=== PATIENT | male | born 1945 | race Hispanic/Latino ===

== ENCOUNTER 2018-09-17 06:32 | Inpatient (IN) | payer OTHER ==
[2018-09-17] MEDS ORDERED: KETAMINE HCL 500 MG/5 ML VIAL ONE (07:10)
[2018-09-17 07:23] LABS: Absolute Lymphocytes (CBC) 4.7 K/uL (0.7-4.9); Basophils % 0.7 % (0-1.3); Eosinophils % 1.4 % (0-4.4); Hematocrit 43.2 % (39.6-49.0); Lymphocytes % 52.4 % (15.3-44.8); MPV 8.4 fL (7.6-11.3); Monocytes % 5.6 % (3.3-12.3); RBC Red Blood Cell Count 4.77 M/uL (4.33-5.43)
[2018-09-17 07:25] LABS: Protime INR 0.98
[2018-09-17] MEDS ORDERED: NOREPINEPHRINE 4mg/D5W 250mL 4 MG/250 ML BAG IV ONE (07:47)
[2018-09-17] MEDS ORDERED: FENTANYL CITR 100 MCG/2 ML ONE (07:47)
[2018-09-17 07:57] LABS: ALT/SGPT 68 U/L (12-78); AST/SGOT 77 U/L (15-37); Albumin 3.9 g/dL (3.4-5.0); BUN Blood Urea Nitrogen 13 mg/dL (7-18); Bicarbonate 25 mmol/L (21-32); Bilirubin Direct 0.2 mg/dL (0-0.2); Bilirubin Total 0.8 mg/dL (0.2-1.0); Glucose Level 217 mg/dL (74-106); Magnesium 2.4 mg/dL (1.8-2.4); NT PRO-BNP 5047 pg/mL (<125); Potassium 5.4 mmol/L (3.5-5.1); Protein, Total 7.1 g/dL (6.4-8.2); Sodium Level 131 mmol/L (136-145); Troponin (Emerg Dept Use Only) 0.07 ng/mL (0.0-0.045)
[2018-09-17 07:59] LABS: Alkaline Phosphatase ND U/L (45-117)
[2018-09-17 08:11] LABS: Arterial Blood Carboxyhemoglob 2.1 % (0-1.5); Blood Gas Oxyhemoglobin 93.2 % (94-97); Blood O2 Saturation 95.8 % (92-98.5)
[2018-09-17] MEDS ORDERED: INSULIN -REGULAR HUMAN 50 UNIT/0.5 ML ML ONE (08:21)
[2018-09-17] MEDS ORDERED: HEPARIN 5000 UNIT/ML 1 ML VIAL ONE (08:21)
[2018-09-17] MEDS ORDERED: HEPARIN/D5W 25,000 UNIT/500 ML BAG IV ONE (08:22)
[2018-09-17] MEDS ORDERED: D50W 25 GM/50 ML SYRINGE IV ONE (08:22)
--- NOTE | 2018-09-17 08:26 | RAD REPORT ---
EXAM DESCRIPTION: RAD - Chest Single View - 09/17/2018 6:54 am CLINICAL HISTORY: DYSPNEA Chest pain. COMPARISON: No comparisons FINDINGS: Portable technique limits examination quality. ET tube tip is above the jd. Enteric tube descends into the upper abdomen. The lungs are emphysem atous without focal infiltrate seen. No displaced fractures.Cardiac size is normal.
--- NOTE | 2018-09-17 08:29 | ER ---
Nurse's Notes [facility] Name: Wade Murphy Age: 73 yrs Sex: Male : 1945 Arrival Date: 09/17/2018 Time: 06:37 Bed 3 Private MD: Diagnosis: Non-ST elevation (NSTEMI) myocardial infarction;Acute systolic (congestive) heart failure;Chronic kidney disease (CKD);Hyperkalemia;Acute respiratory failure with hypoxia Presentation: 09/17 06:47 Presenting complaint: EMS states: Toned out for pt SOB. Pt was diaphoretic, tl2 hypertensive, and agitated on scene. Not tolerating neb treatments or CPap. [employer] Supervisor proceeded with intubation. 8.0 tube, 24 \T\ teeth, 16 Fr NG tube placed, 18 g R AC. Transition of care: patient was not received from another setting of care. Onset of symptoms was September 17, 2018 at 02:00. Risk Assessment: Do you want to hurt yourself or someone else? Patient reports no desire to harm self or others. Initial Sepsis Screen: Does the patient meet any 2 criteria? No. Patient's initial sepsis screen is negative. Does the patient have a suspected source of infection? No. Patient's initial sepsis screen is negative. Care prior to arrival: Oral intubation, Medication(s) given: 20 etomidate, 100 succs, 150 fentanyl, 125 solu medrol. IV initiated. 18 GA, in the right antecubital area, Glucose check: 194 Med neb given. 06:47 Method Of Arrival: EMS: [facility] tl2 06:47 Acuity: MARYJANE 1 tl2 Triage Assessment: 06:54 General: Appears distressed, Behavior is unresponsive. Pain: Unable to use pain scale. tl2 Patient is unresponsive. Neuro:. Respiratory: Airway via oral intubation Onset: The symptoms/episode began/occurred this morning, the patient has severe shortness of breath. 06:54 Respiratory: Reports intubated upon arrival to ED;. hj Historical: - Allergies: 07:07 No Known Allergies; tl2 - Home Meds: 06:54 clopidogrel 75 mg oral tab 1 tab once daily [Active]; carvedilol 3.125 mg oral tab 1 tl2 tab 2 times per day [Active]; furosemide 20 mg Oral tab 1 tab once daily [Active]; amlodipine 10 mg tab 1 tab once daily [Active]; aspirin 81 mg Oral chew 1 tab once daily [Active]; nitroglycerin 0.4 mg SL subl 1 tab [Active]; - PMHx: 07:07 Hypertension; Myocardial infarction; TIA; tl2 - PSHx: 07:07 None; tl2 - Immunization history:: Adult Immunizations up to date. - Ebola Screening: : No symptoms or risks identified at this time. - Social history:: Smoking status: Patient uses tobacco products, smokes one pack cigarettes per day. Patient uses alcohol, 12 pack/day. Screenin:58 Abuse screen: Denies threats or abuse. Nutritional screening: No deficits noted. tl2 Tuberculosis screening: No symptoms or risk factors identified. Fall Risk IV access (20 points). Assessment: 06:45 General: Appears uncomfortable, well nourished, Behavior is unresponsive. Pain: Unable jd3 to use pain scale. Patient is intubated. Neuro: Level of Consciousness is pt is intubated.. Oriented to none. Cardiovascular: Capillary refill < 3 seconds Rhythm is sinus rhythm. Respiratory: Airway via oral intubation Respiratory effort is shallow, Breath sounds are coarse Breath sounds with crackles. GI: No signs and/or symptoms were reported involving the gastrointestinal system. : No signs and/or symptoms were reported regarding the genitourinary system. EENT: EENT: No signs and/or symptoms were reported regarding the EENT system. Derm: Skin is intact, Skin is clammy, diaphoretic, Skin is normal, Skin temperature is warm. 06:58 Cardiovascular: Rhythm is sinus rhythm. tl2 07:00 Reassessment: RECD REPORT FROM ADEEL PASTOR. 73YO HM P/W SOB AND AMS SINCE 0200. INTUBATED bp IN ROUTE BY EMS. PT CURRENTLY ON VENT, WITH NGT AND PINEDA IN PLACE. 07:00 General: Appears uncomfortable, Behavior is calm, unresponsive. Pain: Unable to use hj pain scale. Patient is intubated. Neuro: Level of Consciousness is unresponsive, Oriented to none. Cardiovascular: Capillary refill < 3 seconds Patient's skin is warm and dry. Respiratory: Airway via oral intubation Respiratory effort is even, Respiratory pattern is intubated Breath sounds are coarse Breath sounds with crackles. GI: No signs and/or symptoms were reported involving the gastrointestinal system. GI: NGT in place, to suction. Site clean. Bowel sounds present X 4 quads. : : Pineda in place Urine is clear. Derm: Skin is intact, Skin is clammy, diaphoretic, Skin is normal, Skin temperature is cool. 07:30 Reassessment: pt is restless, RT at bedside, ET tube adjusted; assisted provider on hj central line femoral placement;. 07:45 Reassessment: carried out medication orders for heparin and levophed;. hj 08:00 Reassessment: pt started to become awake, requested for propofol order; initiated;. hj 09:00 Reassessment: pt family in room with hospitalist for POC:. hj 09:32 Reassessment: awaiting for ICU placement;. hj 10:00 Reassessment: bleeding noted at central line site; pressure applied for 15 mins and hj dressing changed;. 10:33 Reassessment: family in room; awaiting ICU placement;. hj 11:12 Reassessment: pt to go to ICU bed 2; awaiting call back from [facility] for report;. hj 11:41 Reassessment: still awaiting for call back from [facility] for report;. hj Vital Signs: 06:54 BP 108 / 55; Pulse 70; Resp 17; Pulse Ox 100% on ETT vent; Weight 81.65 kg; Height 5 tl2 ft. 8 in. (172.72 cm); 07:00 BP 126 / 76; Pulse 77; Resp 19; Temp 96.8(C); Pulse Ox 99% ; tl2 07:26 Temp 96.8; hj 08:10 BP 90 / 44; Pulse 51; Resp 16; Pulse Ox 98% on ETT vent; hj 08:15 BP 118 / 46; Pulse 55; Resp 16; Pulse Ox 97% on ETT vent; hj 08:30 BP 150 / 79; Pulse 67; Resp 16; Pulse Ox 98% on ETT vent; hj 08:38 BP 148 / 46; Pulse 71; Resp 14; Pulse Ox 100% on ETT vent; hj 08:45 BP 92 / 45; Pulse 56; Resp 16; Pulse Ox 99% on ETT vent; hj 09:02 BP 105 / 49; Pulse 53; Resp 16; Temp 96.3(C); Pulse Ox 99% on ETT vent; hj 09:13 BP 122 / 51; Pulse 64; Resp 16; Pulse Ox 96% on ETT vent; hj 09:16 BP 116 / 50; Pulse 52; Resp 16; Pulse Ox 100% on ETT vent; hj 09:31 BP 124 / 53; Pulse 54; Resp 16; Pulse Ox 100% on R/A; hj 09:45 BP 132 / 60; Pulse 60; Resp 17; Temp 96.1(C); Pulse Ox 100% on ETT vent; hj 09:53 BP 122 / 65; Pulse 60; Resp 16; Pulse Ox 100% on ETT vent; hj 10:30 BP 122 / 55; Pulse 58; Resp 16; Pulse Ox 100% on ETT vent; hj 11:09 BP 132 / 55; Pulse 67; Resp 16; Temp 97.7(C); Pulse Ox 100% on ETT vent; hj 11:22 BP 122 / 57; Pulse 70; Resp 16; Temp 97.9(C); Pulse Ox 100% on ETT vent; hj 11:40 BP 138 / 73; Pulse 81; Resp 18; Temp 98.3(C); Pulse Ox 100% on R/A; hj 11:47 BP 104 / 46; Pulse 80; Resp 16; Temp 98.4(C); Pulse Ox 100% on ETT vent; hj 12:23 BP 145 / 54; Pulse 75; Resp 16; Pulse Ox 100% on ETT vent; hj 06:54 Body Mass Index 27.37 (81.65 kg, 172.72 cm) tl2 09:02 levophed mcg/min hj 09:13 levophed at 12 mcg/min hj 09:16 levophed \T\ 12 mcg/min hj 09:31 levophed at 12 mcg/min hj 09:45 levophed \T\ 10 mcg/min hj 09:53 levphed at 8 mcg/min hj 10:30 levophed at 8 mcg/min hj 11:09 levophed at 6 mcg/min hj 11:22 levophed \T\ 6 mcg/min hj 11:40 levophed at 4 mcg/min hj 11:47 levophed at \T\ 6 mcg/min hj 12:23 levophed \T\ 4 mcg/min hj Sarah Coma Score: 08:16 Eye Response: none(1). Verbal Response: none(1). Motor Response: none(1). Modifying jr8 Factors: Intubated. Total: 3. ED Course: 06:37 Patient arrived in ED. fc 06:42 Garcia Massey PA is PHCP. jr8 06:42 Mayco Kahn MD is Attending Physician. jr8 06:50 X-ray completed. Portable x-ray completed in exam room. Patient tolerated procedure jb2 well. 06:50 Initial lab(s) drawn, by ED staff, sent to lab. First set of blood cultures drawn EKG tl2 done, by ED staff, reviewed by Garcia WILKERSON. 06:51 Triage completed. tl2 06:52 XRAY Chest (1 view) In Process Unspecified. EDMS 06:54 Arm band placed on right wrist. tl2 06:56 Maintain EMS IV. Dressing intact. Good blood return noted. Site clean \T\ dry. Gauge \T\ tl 2 site: 18 g R AC. Inserted saline lock: 20 gauge in left forearm, using aseptic technique. Blood collected. placed by DAWIT Barron. 06:58 Patient has correct armband on for positive identification. Placed in gown. Bed in low tl2 position. Call light in reach. Side rails up X2. 07:02 Pineda cath inserted, using sterile technique, 16 Fr., by ED staff, balloon inflated, to tl2 gravity drainage, urine specimen collected. 07:19 Dieudonne Silvestre, DAWIT is Primary Nurse. bp 07:45 Assisted provider with central line placement. Set up central line tray. Triple lumen hj line placed in right femoral. Line placed by Garcia WILKERSON Placement verified by blood return, Dressed with Tegaderm, Patient tolerated well. Time-out/Briefing performed prior to start of procedure? Was handwashing/sanitizing done immediately prior to procedure? Was patient positioned to in a way to prevent air embolism? Was procedure site sterilized? Yes, with chlorhexidine. Was the site allowed to dry? Was local anesthetic and/or sedation utilized? Yes. During the procedure, did the Practitioner(s) maintain a sterile field? Were unused ports clamped during insertion? Yes. Was a 2nd qualified MD obtained after 3 unsuccessful insertion attempts? No. Was blood aspirated from each lumen? Yes. After the procedure, did the Practitioner(s) clean the site and apply a sterile dressing? Yes. 08:14 Repeat EKG was done. sm3 08:27 Galdino Patel MD is Hospitalizing Provider. jr8 08:45 Inserted. hj 08:51 Primary Nurse role handed off by Dieudonne Silvestre, DAWIT hj 08:51 Arun Paz, DAWIT is Primary Nurse. hj 13:12 Patient admitted, IV remains in place. intact. hj Restraints: 07:00 Non-Violent Restraint: Order obtained. Initiated on September 17, 2018 at 07:00 Unable to bp provide Restraint education. PT ALTERED AND NON-VERBAL. Actions/Behavior observed: Confused/disoriented, has difficulty remembering/follow instructions, has impaired decision making, has decreased level of consciousness, unable to follow instructions, Less restrictive alternatives attempted: decrease environmental stimuli, placed near Nurse station, reoriented to location, medications evaluated, medicated for pain/anxiety, Alternative interventions: Ineffective. Clinical justification for use: airway protection, patient safety, Mental status: confused, Cognition: poor judgement, poor safety awareness, poor attention/concentration, unable to follow commands, Circulation: Within defined parameters (based on Cardiovascular assessment) Skin integrity: Within defined parameters (based on Integumentary assessment) Signs of injury related to restraint: No injuries noted. Range of Motion (ROM): performed. Elimination/Hygiene: with urinary catheter, Restraint status: Soft wrist restraint (Right) Started. Soft wrist restraint (Left) Started. Criteria to discontinue Restraint not met. Restraint continued. Administered Medications: 06:45 Drug: Versed 4 mg Route: IVP; Site: right antecubital; tl2 07:56 Follow up: Response: No adverse reaction; Anxiety decreased hj 06:50 Drug: Lasix 80 mg Route: IVP; Site: left forearm; tl2 07:57 Follow up: Response: No adverse reaction hj 07:04 Drug: Albuterol 2.5 mg Route: Inhalation; tl2 07:10 Drug: Ketamine 2 mg/kg Route: IVP; Site: right antecubital; bp 07:55 Follow up: Response: No adverse reaction hj 07:38 Drug: fentaNYL (PF) 50 mcg Route: IVP; Site: left wrist; ss 07:55 Follow up: Response: No adverse reaction hj 07:40 Drug: Levophed (4 mg/250 mL D5W 4 mcg/min Route: IV; Rate: calculated rate; Site: right hj femoral; 08:42 Follow up: IV Status: Infusion continued upon admission hj 08:04 Drug: Heparin (MO-Bolus with thrombolytic) - HEParin 60 units/kg {Co-Signature: bp carlos (Dieudonne Silvestre RN).} Route: IVP; Site: right femoral; 08:42 Follow up: Response: No adverse reaction hj 08:05 Drug: Heparin (MO Drip) 12 units/kg/hr - (HEParin 40065 units, D5W 500 ml) {Co-Signature: bp (Dieudonne Silvestre RN).} Route: IV; Rate: calculated rate; Site: right femoral; 08:43 Follow up: IV Status: Infusion continued upon admission hj 08:05 Drug: Insulin Regular Human 10 units {Co-Signature: (Dieudonne Silvestre RN).} Route: IVP; Site: right femoral; 08:43 Follow up: Response: No adverse reaction hj 08:05 Drug: D50W 25 ml Route: IVP; Site: right forearm; hj 08:43 Follow up: Response: No adverse reaction hj 08:31 Drug: Propofol 5 mcg/kg/min Route: IV; Rate: calculated rate; Site: right femoral; hj 08:43 Follow up: IV Status: Infusion continued upon admission Point of Care Testing: Blood Glucose: 07:20 Blood Glucose: 231 mg/dL; tl2 Ranges: Ventilator: 08:16 Fi02: 50%; Rate: 16min; T.V.: 550ml; Peep: 75cm; Mode: CMV; jr8 Outcome: 08:28 Decision to Hospitalize by Provider. jr8 13:11 Admitted to ICU accompanied by nurse, accompanied by tech, family with patient, via stretcher, room 2, with oxygen, on monitor, with chart, Report called to DAWIT Garcia 13:11 Condition: stable 13:11 Instructed on the need for admit, Demonstrated understanding of instructions. 13:12 Patient left the ED. Signatures: Dispatcher [employer] EDLui Evans Felicia, RN RN fc Smirch, Shelby, RN RN ss Roszak, Josh, PA PA jr8 Arun Paz RN RN Kusum Cortez RN RN tl2 Anderson Dobbs RN RN jd3 Dieudonne Silvestre RN RN bp Kayla East 3 Dieudonne Silvestre RN bp Corrections: (The following items were deleted from the chart) 07:07 06:54 Allergies: Unable to obtain; tl2 tl2 07:07 06:54 PMHx: Unable to obtain; tl2 tl2 07:08 06:54 Social history: Smoking status: unknown tl2 tl2 07:21 07:00 BP 126 / 76; Pulse 77bpm; Resp 19bpm; Pulse Ox 99%; bp tl2 09:32 09:14 Reassessment: [facility] 09:52 07:00 EENT: No signs and/or symptoms were reported regarding the EENT system. [facility] 09:52 09:52 Reassessment: [facility] 10:35 09:53 BP 122 / 65; Pulse 60bpm; Resp 16bpm; Pulse Ox 100% ET / Ventilator; [facility] 10:35 10:30 BP 122 / 55; Pulse 58bpm; Resp 16bpm; Pulse Ox 100% ET / Ventilator; [facility] 11:12 11:09 BP 132 / 55; Pulse 67bpm; Resp 16bpm; Pulse Ox 100% ET / Ventilator; Temp 97.7F hj Catheter;
--- NOTE | 2018-09-17 08:29 | EDPHYS ---
Physician Documentation [facility] Name: Wade Murphy Age: 73 yrs Sex: Male : 1945 Arrival Date: 09/17/2018 Time: 06:37 Bed 3 Private MD: ED Physician Mayco Kahn HPI: 09/17 07:51 This 73 yrs old Male presents to ER via EMS with complaints of Respiratory jr8 Distress. 07:51 The patient has shortness of breath at rest. Onset: The symptoms/episode began/occurred jr8 acutely, this morning. Duration: The symptoms are continuous. The patient's shortness of breath has no apparent modifying factors. Associated signs and symptoms: The patient has no apparent associated signs or symptoms. Severity of symptoms: At their worst the symptoms were severe in the emergency department the symptoms have improved. It is unknown whether or not the patient has had similar symptoms in the past. It is unknown whether or not the patient has recently seen a physician. EMS called out to patient in acute respiratory distress. Upon arrival to house noted that he was retracting and in tripod position. Breathing treatments and IV medication administered on scene with no relief. Stated that he was becoming lethargic and had increased work of breathing. Electively intubated in field. Upon arrival to ED patient improved but still with diffuse wheezing and rales bilaterally. Hemodynamically stable at that time. Historical: - Allergies: 07:07 No Known Allergies; tl2 - Home Meds: 06:54 clopidogrel 75 mg oral tab 1 tab once daily [Active]; carvedilol 3.125 mg oral tab 1 tl2 tab 2 times per day [Active]; furosemide 20 mg Oral tab 1 tab once daily [Active]; amlodipine 10 mg tab 1 tab once daily [Active]; aspirin 81 mg Oral chew 1 tab once daily [Active]; nitroglycerin 0.4 mg SL subl 1 tab [Active]; - PMHx: 07:07 Hypertension; Myocardial infarction; TIA; tl2 - PSHx: 07:07 None; tl2 - Immunization history:: Adult Immunizations up to date. - Ebola Screening: : No symptoms or risks identified at this time. - Social history:: Smoking status: Patient uses tobacco products, smokes one pack cigarettes per day. Patient uses alcohol, 12 pack/day. ROS: 07:51 Unable to obtain ROS due to obtunded state, patient is on ventilator. jr8 Exam: 08:16 Eyes: Pupils equal round and reactive to light. Lids and lashes normal. Conjunctiva jr8 and sclera are non-icteric and not injected. Cornea within normal limits. Periorbital areas with no swelling, redness, or edema. ENT: Nares patent. No nasal discharge, no septal abnormalities Oropharynx with no redness, swelling, or masses, exudates, or evidence of obstruction, uvula midline. Mucous membranes moist. Neck: Trachea midline, no thyromegaly or masses palpated, and no cervical lymphadenopathy. Supple, full range of motion Cardiovascular: Regular rate and rhythm with a normal S1 and S2. No gallops, murmurs, or rubs. No pulse deficits. JVD present 08:16 Abdomen/GI: Soft with normal bowel sounds. No distension Skin: Cool and moist skin with normal turgor. Normal color with no rashes, no lesions, and no evidence of cellulitis. MS/ Extremity: Pulses equal, no cyanosis. Neurovascular intact. Full, normal range of motion. 08:16 Respiratory: Breath sounds: rales, that are moderate, are scattered, wheezing: expiratory that is moderate, is heard diffusely, Respiratory rate: 16 vent. 08:16 Neuro: Purposeful movement in all extremities before sedation. No seizure activity or abnormal movements noted. Rest of exam could not fully be assessed due to patient status. Vital Signs: 06:54 BP 108 / 55; Pulse 70; Resp 17; Pulse Ox 100% on ETT vent; Weight 81.65 kg; Height 5 tl2 ft. 8 in. (172.72 cm); 07:00 BP 126 / 76; Pulse 77; Resp 19; Temp 96.8(C); Pulse Ox 99% ; tl2 07:26 Temp 96.8; hj 08:10 BP 90 / 44; Pulse 51; Resp 16; Pulse Ox 98% on ETT vent; hj 08:15 BP 118 / 46; Pulse 55; Resp 16; Pulse Ox 97% on ETT vent; hj 08:30 BP 150 / 79; Pulse 67; Resp 16; Pulse Ox 98% on ETT vent; hj 08:38 BP 148 / 46; Pulse 71; Resp 14; Pulse Ox 100% on ETT vent; hj 08:45 BP 92 / 45; Pulse 56; Resp 16; Pulse Ox 99% on ETT vent; hj 09:02 BP 105 / 49; Pulse 53; Resp 16; Temp 96.3(C); Pulse Ox 99% on ETT vent; hj 09:13 BP 122 / 51; Pulse 64; Resp 16; Pulse Ox 96% on ETT vent; hj 09:16 BP 116 / 50; Pulse 52; Resp 16; Pulse Ox 100% on ETT vent; hj 09:31 BP 124 / 53; Pulse 54; Resp 16; Pulse Ox 100% on R/A; hj 09:45 BP 132 / 60; Pulse 60; Resp 17; Temp 96.1(C); Pulse Ox 100% on ETT vent; hj 09:53 BP 122 / 65; Pulse 60; Resp 16; Pulse Ox 100% on ETT vent; hj 10:30 BP 122 / 55; Pulse 58; Resp 16; Pulse Ox 100% on ETT vent; hj 11:09 BP 132 / 55; Pulse 67; Resp 16; Temp 97.7(C); Pulse Ox 100% on ETT vent; hj 11:22 BP 122 / 57; Pulse 70; Resp 16; Temp 97.9(C); Pulse Ox 100% on ETT vent; hj 11:40 BP 138 / 73; Pulse 81; Resp 18; Temp 98.3(C); Pulse Ox 100% on R/A; hj 11:47 BP 104 / 46; Pulse 80; Resp 16; Temp 98.4(C); Pulse Ox 100% on ETT vent; hj 12:23 BP 145 / 54; Pulse 75; Resp 16; Pulse Ox 100% on ETT vent; hj 06:54 Body Mass Index 27.37 (81.65 kg, 172.72 cm) tl2 09:02 levophed mcg/min hj 09:13 levophed at 12 mcg/min hj 09:16 levophed \T\ 12 mcg/min hj 09:31 levophed at 12 mcg/min hj 09:45 levophed \T\ 10 mcg/min hj 09:53 levphed at 8 mcg/min hj 10:30 levophed at 8 mcg/min hj 11:09 levophed at 6 mcg/min hj 11:22 levophed \T\ 6 mcg/min hj 11:40 levophed at 4 mcg/min hj 11:47 levophed at \T\ 6 mcg/min hj 12:23 levophed \T\ 4 mcg/min hj Sarah Coma Score: 08:16 Eye Response: none(1). Verbal Response: none(1). Motor Response: none(1). Modifying jr8 Factors: Intubated. Total: 3. Ventilator: 08:16 Fi02: 50%; Rate: 16min; T.V.: 550ml; Peep: 75cm; Mode: CMV; jr8 Procedures: 07:47 Central Line: the site was prepped with Betadine, in sterile fashion, a triple lumen jr8 catheter was inserted, in the right femoral vein, in 1 attempts. placement was verified, by blood return, the site was dressed with 4X4s, Tegaderm, foam tape, using sterile technique, the patient tolerated the procedure, well. MDM: 06:42 Patient medically screened. jr8 08:09 Physician consultation: Jackson Munoz MD was called at 08:03, was contacted at 08:03, jr regarding consult, patient's condition, and will see patient in unit. 08:16 Data reviewed: vital signs, nurses notes, lab test result(s), EKG, radiologic studies, jr8 plain films, ultrasound. Data interpreted: Pulse oximetry: on ventilator is 99 %. Interpretation: acceptable. Counseling: I had a detailed discussion with the patient and/or guardian regarding: the historical points, exam findings, and any diagnostic results supporting the discharge/admit diagnosis, lab results, radiology results, the need for further work-up and treatment in the hospital. 08:25 Physician consultation: Galdino Patel MD was called at 08:25, was contacted at 08:25, jr8 regarding admission, to the ICU, consult, patient's condition, and will see patient in ED. ED course: Talked to family about condition and need for ICU admission. Family good with this. Also asked about DNR status which family states he does not have a DNR and wants everything done to try and revive patient . 09/17 06:43 Order name: Basic Metabolic Panel [facility] 09/17 06:43 Order name: CBC with Diff 8 09/17 06:43 Order name: LFT's [facility] 09/17 06:43 Order name: Magnesium; Complete Time: 08:08 jr8 09/17 06:43 Order name: NT PRO-BNP; Complete Time: 08:08 jr8 09/17 06:43 Order name: PT-INR; Complete Time: 07:26 jr8 09/17 06:43 Order name: Troponin (emerg Dept Use Only); Complete Time: 08:08 jr8 09/17 06:43 Order name: Ckmb; Complete Time: 08:08 jr8 09/17 06:43 Order name: Lactate; Complete Time: 07:58 jr8 09/17 06:43 Order name: Blood Culture Adult (2) jr8 09/17 06:43 Order name: Procalcitonin; Complete Time: 08:08 jr8 09/17 06:43 Order name: Basic Metabolic Panel; Complete Time: 08:08 EDMS 09/17 06:44 Order name: CBC with Automated Diff; Complete Time: 07:26 EDMS 09/17 06:44 Order name: Liver (Hepatic) Function; Complete Time: 08:08 EDMS 09/17 06:43 Order name: XRAY Chest (1 view); Complete Time: 08:28 jr8 09/17 06:43 Order name: EKG; Complete Time: 06:44 jr8 09/17 07:54 Order name: ABG; Complete Time: 10:11 09/17 08:11 Order name: Echo with Doppler EDMS 09/17 11:18 Order name: Lactate Sepsis 2 HR Follow-up; Complete Time: 11:19 EDMS 09/17 06:43 Order name: Cardiac monitoring; Complete Time: 07:02 jr8 09/17 06:43 Order name: EKG - Nurse/Tech; Complete Time: 07:02 jr8 09/17 06:43 Order name: IV Saline Lock; Complete Time: 07:02 jr8 09/17 06:43 Order name: Labs collected and sent; Complete Time: 07:02 jr8 09/17 06:43 Order name: O2 Per Protocol; Complete Time: 07:02 jr8 09/17 06:43 Order name: O2 Sat Monitoring; Complete Time: 07:02 jr8 09/17 07:21 Order name: Restraint:Non-Violent; Complete Time: 07:21 bp 09/17 07:47 Order name: EKG; Complete Time: 07:47 jr8 Administered Medications: 06:45 Drug: Versed 4 mg Route: IVP; Site: right antecubital; tl2 07:56 Follow up: Response: No adverse reaction; Anxiety decreased hj 06:50 Drug: Lasix 80 mg Route: IVP; Site: left forearm; tl2 07:57 Follow up: Response: No adverse reaction hj 07:04 Drug: Albuterol 2.5 mg Route: Inhalation; tl2 07:10 Drug: Ketamine 2 mg/kg Route: IVP; Site: right antecubital; bp 07:55 Follow up: Response: No adverse reaction hj 07:38 Drug: fentaNYL (PF) 50 mcg Route: IVP; Site: left wrist; ss 07:55 Follow up: Response: No adverse reaction hj 07:40 Drug: Levophed (4 mg/250 mL D5W 4 mcg/min Route: IV; Rate: calculated rate; Site: right hj femoral; 08:42 Follow up: IV Status: Infusion continued upon admission hj 08:04 Drug: Heparin (KS-Bolus with thrombolytic) - HEParin 60 units/kg {Co-Signature: bp (Dieudonne Silvestre RN).} Route: IVP; Site: right femoral; 08:42 Follow up: Response: No adverse reaction hj 08:05 Drug: Heparin (KS Drip) 12 units/kg/hr - (HEParin 70261 units, D5W 500 ml) {Co-Signature: bp (Dieudonne Silvestre RN).} Route: IV; Rate: calculated rate; Site: right femoral; 08:43 Follow up: IV Status: Infusion continued upon admission hj 08:05 Drug: Insulin Regular Human 10 units {Co-Signature: (Dieudonne Silvestre RN).} Route: IVP; Site: right femoral; 08:43 Follow up: Response: No adverse reaction hj 08:05 Drug: D50W 25 ml Route: IVP; Site: right forearm; hj 08:43 Follow up: Response: No adverse reaction hj 08:31 Drug: Propofol 5 mcg/kg/min Route: IV; Rate: calculated rate; Site: right femoral; hj 08:43 Follow up: IV Status: Infusion continued upon admission Point of Care Testing: Blood Glucose: 07:20 Blood Glucose: 231 mg/dL; tl2 Ranges: Critical Glucose Levels:Adult <50 mg/dl or >400 mg/dl <40 mg/dl or >180 mg/dl Disposition: :31 Critical Care:. jr8 16:44 Co-signature as Attending Physician, Mayco Kahn MD I agree with the assessment and jj plan of care. Disposition: 09/17/18 08:28 Hospitalization ordered by Galdino Patel for Inpatient Admission. Preliminary diagnosis are Non-ST elevation (NSTEMI) myocardial infarction, Acute systolic (congestive) heart failure, Chronic kidney disease (CKD), Hyperkalemia, Acute respiratory failure with hypoxia. - Bed requested for Intensive Care Unit. - Status is Inpatient Admission. hj - Condition is Fair. - Problem is new. - Symptoms have improved. UTI on Admission? No Critical care time excluding procedures: : Critical care time: Bedside Care: 20 minutes, Consultation: 10 minutes, Family jr8 Intervention: 10 minutes. Total time: 40 minutes Signatures: Dispatcher [employer] EDMS Mayco Kahn MD MD cha Martinez, Eric em1 Noelle Ceron, DAWIT PASTOR Garcia Massey PA PA jr8 Arun Paz RN RN hj Knox, Taylor, RN RN tl2 Dieudonne Silvestre RN RN bp Dieudonne Silvestre RN bp Corrections: (The following items were deleted from the chart) 07:07 06:54 Allergies: Unable to obtain; tl2 tl2 07:07 06:54 PMHx: Unable to obtain; tl2 tl2 07:08 06:54 Social history: Smoking status: unknown tl2 tl2 11:07 08:28 Hospitalization Ordered by Galdino Patel MD for Inpatient Admission. Preliminary em1 diagnosis is Non-ST elevation (NSTEMI) myocardial infarction; Acute systolic (congestive) heart failure; Chronic kidney disease (CKD); Hyperkalemia; Acute respiratory failure with hypoxia. Bed requested for Telemetry/MedSurg (Inpatient). Status is Inpatient Admission. Condition is Fair. Problem is new. Symptoms have improved. UTI on Admission? No. jr8 13:12 11:07 09/17/2018 08:28 Hospitalization Ordered by Galdino Patel MD for Inpatient hj Admission. Preliminary diagnosis is Non-ST elevation (NSTEMI) myocardial infarction; Acute systolic (congestive) heart failure; Chronic kidney disease (CKD); Hyperkalemia; Acute respiratory failure with hypoxia. Bed requested for Intensive Care Unit. Status is Inpatient Admission. Condition is Fair. Problem is new. Symptoms have improved. UTI on Admission? No. em1
[2018-09-17] MEDS ORDERED: PROPOFOL 1,000 MG/100 ML VIAL IV ONE ×2 (08:42→14:09)
--- NOTE | 2018-09-17 10:55 | EKG ---
Test Date: 2018-09-17 Test Time: 07:54:36 Admittance Attendant: ESAU MEASUREMENT RESULTS: Intervals: Rate: 54 FL: 208 QRSD: 116 QT: 486 QTc: 460 [place]: P: 31 FL: 208 QRS: 51 T: 219 INTERPRETIVE STATEMENTS: Sinus bradycardia Left ventricular hypertrophy with QRS widening and repolarization abnormality Cannot rule out Inferior infarct, age undetermined Abnormal ECG Compared to ECG 09/17/2018 06:36:09 Sinus rhythm no longer present First degree AV block no longer present Myocardial infarct finding still present Electronically Signed On 09-17-18 10:54:34 CDT by Jackson Munoz
--- NOTE | 2018-09-17 10:56 | EKG ---
Test Date: 2018-09-17 Test Time: 06:36:09 Senior Librarian: RICARDO MEASUREMENT RESULTS: Intervals: Rate: 86 OK: 214 QRSD: 120 QT: 370 QTc: 442 [place]: P: 61 OK: 214 QRS: 63 T: -84 INTERPRETIVE STATEMENTS: Sinus rhythm with 1st degree AV block Left ventricular hypertrophy with QRS widening and repolarization abnormality Cannot rule out Septal infarct, age undetermined Abnormal ECG No previous ECG available for comparison Electronically Signed On 09-17-18 10:54:44 CDT by Jackson Munoz
--- NOTE | 2018-09-17 11:32 | ECHO ---
HEIGHT: ft in WEIGHT: lb oz DATE OF STUDY: 09/17/[address]: Jae Massey 2-DIMENSIONAL: YES M.MODE: YES DOPPLER: YES COLOR FLOW: YES TDS: NO PORTABLE: YES DEFINITY: NO BUBBLE STUDY: NO DIAGNOSIS: ACUTE HEART FAILURE CARDIAC HISTORY: CATHERIZATION: NO SURGERY: NO PROSTHETIC VALVE: NO PACEMAKER: NO MEASUREMENTS (cm) DIASTOLIC (NORMALS) SYSTOLIC (NORMALS) IVSd 1.2 (0.6-1.2) LA Diam (1.9-4.0) LVEF 46% LVIDd 5.3 (3.5-5.7) LVIDs 4.1 (2.0-3.5) %FS 23% LVPWd 1.3 (0.6-1.2) Ao Diam 2.7 (2.0-3.7) 2 DIMENSIONAL ASSESSMENT: RIGHT ATRIUM: NORMAL LEFT ATRIUM: DILATED RIGHT VENTRICLE: NORMAL LEFT VENTRICLE: LEFT VENTRICULAR HYPERTROPHY TRICUSPID VALVE: NORMAL MITRAL VALVE: NORMAL PULMONIC VALVE: NORMAL AORTIC VALVE: SCLEROSIS PERICARDIAL EFFUSION: NONE AORTIC ROOT: NORMAL LEFT VENTRICULAR WALL MOTION: MILD GLOBAL HYPOKINESIS. DOPPLER/COLOR FLOW: NORMAL. COMMENTS: MILD GLOBAL HYPOKINESIS. EJECTION FRACTION 46%. AORTIC SCLEROSIS WITH STENOSIS. LEFT ATRIAL ENLARGEMENT. LEFT VENTRICULAR HYPERTROPHY. TECHNOLOGIST: CHARMAINE GREGORY
[2018-09-17] MEDS: IPRATROPIUM BROM 0.5MG/2.5ML NEB SCH ×3 (12:31→20:00)
[2018-09-17] MEDS: ALBUTEROL 2.5 MG/3 ML NEB SOL NEB SCH ×2 (14:00→20:00)
[2018-09-17] MEDS ORDERED: PROPOFOL 1,000 MG/100 ML VIAL IV PRN (14:08)
[2018-09-17] MEDS ORDERED: MIDAZOLAM HCL 2 MG/2 ML INJ IV PRN (14:08)
[2018-09-17] MEDS: FENTANYL CITR 100 MCG/2 ML IV PRN ×2 (14:25→19:45)
--- NOTE | 2018-09-17 15:15 | P.HP ---
Certification for Inpatient Patient admitted to: Inpatient With expected LOS: >2 Midnights Practitioner: I am a practitioner with admitting privileges, knowledge of patient current condition, hospital course, and medical plan of care. Services: Services provided to patient in accordance with Admission requirements found in Title 42 Section 412.3 of the Code of Federal Regulations Patient History Date of Service: 09/17/18 Primary Care Provider: None Reason for admission: Acute respiratory failure History of Present Illness: This is a 73-year-old male with a past medical history hypertension, CHF, prior [place] admitted for acute respiratory failure. Per family at bedside, this morning patient woke up and was having trouble breathing. He was feeling very uneasy, family bring him to the emergency room. EMS was called, at the time of their arrival, patient was noted to be retracting and tripod position. Was provided with breathing treatments IV medication without any relief. He became more lethargic and had increased work of breathing and was therefore electively intubated in the field. He was then brought to the emergency room. In the ER, patient's blood pressure was low but otherwise hemodynamically stable , he was intubated and sedated. He was with diffuse wheezing and rales bilaterally. His labs were remarkable for sodium of 131, potassium 5.4, creatinine 1.56, lactic acid of 2.1, troponin slightly elevated at 2.37. His chest x-ray showed ET tube tip is above the jd. Enteric tube descends into the upper abdomen. The lungs are emphysematous without focal infiltrate seen. No displaced fractures.Cardiac size is normal. His EKG was with first-degree AV block, QRS abnormality along with nonspecific ST changes. Echo done in the ER showed mild global hypokinesis with ejection fraction of 46% along the aortic stenosis. In the ER, He received heparin, Levophed for blood pressure support. The center line was also placed in the right femoral vein. At the time of my exam, patient was and did not sedated. History was obtained from son at bedside along with chart review any EMS notes. He was then admitted to the ICU for further management for his acute respiratory failure status post intubation by EMS. Allergies No Known Allergies Allergy (Unverified 09/17/18 08:07) Home medications list reviewed: Yes Home Medications: Amlodipine [Norvasc] 10 mg PO DAILY 09/17/18 Aspirin [Aspir-Low] 81 mg PO DAILY 09/17/18 Carvedilol [Coreg] 3.125 mg PO BID 09/17/18 Clopidogrel Bisulfate [Plavix] 75 mg PO DAILY 09/17/18 Furosemide 20 mg PO DAILY 09/17/18 Losartan Potassium 50 mg PO DAILY 09/17/18 Nitroglycerin 0.4 mg SL PRN PRN 09/17/18 - Past Medical/Surgical History -: CHF -: HTN -: TIA - Social History Smoking Status: Current every day smoker Alcohol use: Yes CD- Drugs: No Place of Residence: Home Review of Systems is unable to be obtained Physical Examination - Vital Signs Temperature: 98.4 F Blood Pressure: 117/49 Pulse: 84 Respirations: 14 Pulse Ox (%): 95 - Physical Exam General: Other (Sedated and vented) Respiratory: Dull, Crackles/rales, Rhonchi/gurgles Cardiovascular: Regular rate/rhythm, Normal S1 S2 Gastrointestinal: Normal bowel sounds, No tenderness Musculoskeletal: No tenderness Integumentary: No rashes Neurological: Other (Unable to do a neuro exam) - Studies Laboratory Data (last 24 hrs) 09/17/18 06:50: PT 11.6, INR 0.98 09/17/18 06:50: WBC 8.9, Hgb 14.1, Hct 43.2, Plt Count 156 09/17/18 06:50: Sodium 131 L, Potassium 5.4 H, BUN 13, Creatinine 1.56 H, Glucose 217 H, Magnesium 2.4, Total Bilirubin 0.8, AST 77 H, ALT 68, Alkaline Phosphatase ND Assessment and Plan - Problems (Diagnosis) (1) Acute respiratory failure Current Visit: Yes Status: Acute Plan: Differential diagnoses include flash pulmonary edema vs COPD exacerbation vs CHF exacerbation. - currently intubated; continue vent protocol and to wean as tolerated - respiratory therapy consulted - pulmonary consulted, awaiting recommendations. - no evidence of pneumonia on chest x-ray, no elevation of WBCs and no other evidence of infection at this time. We will hold off antibiotics at this time. Qualifiers: Respiratory failure complication: hypercapnia Qualified Code(s): J96.02 - Acute respiratory failure with hypercapnia (2) Non-ST elevated myocardial infarction (non-STEMI) Current Visit: Yes Status: Acute Plan: Patient on full dose anticoagulation in the ER. - noted to have blood in ETT, the aPTT elevated at 145, likely elevated due to heparin. - old friend at this time due to a bleeding noted. Continue to monitor H&H along with evidence of bleeding. - pending cardiology consultation (3) Elevated troponin Current Visit: Yes Status: Acute Plan: Elevated troponin Likely secondary to non ST elevation myocardial infarction versus demand mismatch versus flash pulmonary edema - continue to monitor the trend - cardiology consulted, awaiting recommending (4) Acute kidney injury Current Visit: Yes Status: Acute Plan: Likely secondary to hypovolemia secondary to hypotension - Levophed for blood pressure support as unable to give IV fluids due to flash pulmonary edema. - continue to monitor creatinine (5) Hypotension Current Visit: Yes Status: Acute Plan: Currently requiring Levophed for blood pressure support. - continue to wean off of Levophed as tolerated. Qualifiers: Hypotension type: hypotension due to hypovolemia Qualified Code(s): I95.89 - Other hypotension; E86.1 - Hypovolemia (6) Acute hyponatremia Current Visit: Yes Status: Acute Plan: Continue to monitor via a.m. labs after diuresis. (7) Hyperkalemia Current Visit: Yes Status: Acute (8) Nicotine dependence Current Visit: Yes Status: Chronic Qualifiers: Nicotine product type: cigarettes Substance use status: uncomplicated Qualified Code(s): F17.210 - Nicotine dependence, cigarettes, uncomplicated (9) Alcohol use Current Visit: Yes Status: Acute Plan: Monitor for withdrawal symptoms. - patient;s family endorses 6-12 pack of beer daily. Last drink last night. (10) Congestive heart failure Current Visit: Yes Status: Chronic Plan: Echo done in the ER shows mild global hypokinesis with ejection fraction of 46% along with aortic stenosis. - Cardiology has been consulted. Pending recommendations Qualifiers: Heart failure type: diastolic Heart failure chronicity: acute on chronic Qualified Code(s): I50.33 - Acute on chronic diastolic (congestive) heart failure (11) Hypertension Current Visit: Yes Status: Chronic Plan: Currently with hypotension. Will hold all home blood pressure medications, restart as tolerated. Qualifiers: Hypertension type: essential hypertension Qualified Code(s): I10 - Essential (primary) hypertension - Plan DVT prophylaxis: Hold chemical anticoagulation [place] GI prophylaxis: Famotidine Diet: NPO Disposition: Admit to ICU, pending symptomatic improvement. - Advance Directives Does patient have a Living Will: No Does patient have a Durable POA for Healthcare: No
--- NOTE | 2018-09-17 17:11 | P.CNS ---
Primary Care Provider: None Chief Complaint: Acute respiratory failure History of Present Illness: La is 73 years of age history obtained from son apparently [place] smokes over a pack a day drinks 12 beers a day he came in developed acute shortness of breath he does have shortness of breath on mild exertion no prior history of coronary artery disease patient was intubated transferred to the ICU has some GI bleeding probably due to heparin he is currently alert responsive cooperative hemodynamically stable although is on low-dose of Levophed Allergies No Known Allergies Allergy (Unverified 09/17/18 08:07) Home Medications: Amlodipine [Norvasc] 10 mg PO DAILY 09/17/18 Aspirin [Aspir-Low] 81 mg PO DAILY 09/17/18 Carvedilol [Coreg] 3.125 mg PO BID 09/17/18 Clopidogrel Bisulfate [Plavix] 75 mg PO DAILY 09/17/18 Furosemide 20 mg PO DAILY 09/17/18 Losartan Potassium 50 mg PO DAILY 09/17/18 Nitroglycerin 0.4 mg SL PRN PRN 09/17/18 - Past Medical/Surgical History -: CHF -: HTN -: TIA -: Throat cancer treated with radiation - Social History Smoking Status: Current every day smoker Alcohol use: Yes CD- Drugs: No Place of Residence: Home Review of Systems is unable to be obtained Physical Examination Temp Pulse Resp BP Pulse Ox 98.4 F 84 14 117/49 L 95 09/17/18 15:58 09/17/18 15:58 09/17/18 15:58 09/17/18 15:58 09/17/18 15:58 General: Alert, Moderate distress Respiratory: Expiratory wheezes Cardiovascular: No edema, Regular rate/rhythm, Normal S1 S2 Gastrointestinal: Normal bowel sounds, Soft and benign Laboratory Data (last 24 hrs) 09/17/18 06:50: PT 11.6, INR 0.98 09/17/18 06:50: WBC 8.9, Hgb 14.1, Hct 43.2, Plt Count 156 09/17/18 06:50: Sodium 131 L, Potassium 5.4 H, BUN 13, Creatinine 1.56 H, Glucose 217 H, Magnesium 2.4, Total Bilirubin 0.8, AST 77 H, ALT 68, Alkaline Phosphatase ND - Problems (1) Respiratory failure Current Visit: Yes Status: Acute Plan: Patient is 73 years of age admitted with acute respiratory distress currently on low-dose Levophed FiO2 of 30% on a propofol drip. His PTT was elevated blood gases shows per [place] with a respiratory acidosis with bicarbonate level was normal CBC unremarkable potassium was mildly elevated is creatinine is also elevated liver function tests mildly abnormal troponin is also very mildly abnormal EKG shows the possibility of a septal infarct age undetermined he has global hypokinesis suggest steroids bronchodilators alcohol prevention chest x- rays a clear COPD changes possible wean and extubate tomorrow he does have some GI bleeding heparin stopped Qualifiers: Chronicity: acute Respiratory failure complication: hypoxia and hypercapnia Qualified Code(s): J96.01 - Acute respiratory failure with hypoxia ; J96.02 - Acute respiratory failure with hypercapnia
[2018-09-17] MEDS: METHYLPREDNISOLONE 40 MG INJ IV SCH (17:45)
[2018-09-17] MEDS: LORazepam 2 MG/ML VIAL IV PRN ×2 (17:45→21:40)
[2018-09-17] MEDS: THIAMINE 200 MG/2 ML INJ IVP SCH (17:46)
[2018-09-17] MEDS: ARFORMOTEROL TARTRATE 15 MCG/2 ML VIAL.NEB NEB SCH (20:00)
[2018-09-17] MEDS: FAMOTIDINE 20 MG/2 ML VIAL IV SCH (20:16)
[2018-09-18] MEDS: METHYLPREDNISOLONE 40 MG INJ IV SCH ×3 (00:28→17:08)
[2018-09-18] MEDS: ALBUTEROL 2.5 MG/3 ML NEB SOL NEB SCH ×4 (02:00→19:48)
[2018-09-18] MEDS: IPRATROPIUM BROM 0.5MG/2.5ML NEB SCH ×4 (02:00→19:48)
--- NOTE | 2018-09-18 02:29 | CON ---
Date of Consultation: 09/17/2018 Admitted on 09/17/2018. I saw the patient on 09/17/2018. Reason For Consultation: Respiratory failure. History Of Present Illness: Mr. Murphy is a 73-year-old, has a history of congestive heart failure th at is chronic systolic with an ejection fraction of 46%. Has a history of COPD, CAD, history of TIA and hypertension, was admitted with pulmonary insufficiency, intubated. Blood gases were 93 PO2, pCO 2 of 52, and pH of 7.25. He was being admitted to the ICU for further evaluation and treatment. Was noted to have an elevated BNP of 5047. Troponin was 0.07. Glucose was elevated. His creatinine wa s 1.56. Past Medical History: Otherwise, stated above. Allergies: NONE. Review of Systems: Negative. Social History: Negative. Family History: Negative. Medications: At home typically include aspirin, Plavix, Coreg, Lasix, and nitroglycerin as needed. Physical Examination: General: He was intubated. O2 saturation is adequate. Vital Signs: Stable. He was in a sinus rhythm. HEENT: Negative. Neck: Supple with no bruit, lymphadenopathy, JVD, or thyromegaly. Chest: Reveals rales and expiratory wheezes. Cardiac: Revealed a regular rhythm and rate. No murmurs, gallops, or rubs. Abdomen: Benign. Extremities: Revealed no clubbing, cyanosis, or edema. Diagnostic Data: As stated earlier. Impression And Plan: 1.Acute exacerbation of COPD. 2.Acute exacerbation of chronic systolic congestive heart failure. 3.Renal insufficiency, stage III. 4.Elevated BNP and troponin secondary to COPD and CHF. Rest of his problems including hypertension, history of TIA and CAD seem to be stable at this point. I think Mr. Murphy deserves another heart ca theterization once he is extubated and feeling better. Echocardiogram has already been done. I agre e with his present regimen. I would diurese him gently, watch his creatinine, daily weight, and Is a nd Os. I will continue to follow him along. UMM/FRANKO Voice ID: [id number] Report ID: [id number]
[2018-09-18] MEDS: LORazepam 2 MG/ML VIAL IV PRN ×5 (04:00→19:10)
[2018-09-18 05:47] LABS: Albumin 3.2 g/dL (3.4-5.0); Bilirubin Total 0.6 mg/dL (0.2-1.0); Potassium 4.8 mmol/L (3.5-5.1)
[2018-09-18 05:52] LABS: Absolute Lymphocytes (CBC) 0.7 K/uL (0.7-4.9); Basophils % 0.1 % (0-1.3); Hematocrit 35.1 % (39.6-49.0); Lymphocytes % 12.4 % (15.3-44.8); MPV 8.8 fL (7.6-11.3); Monocytes % 3.3 % (3.3-12.3); RBC Red Blood Cell Count 3.95 M/uL (4.33-5.43)
--- NOTE | 2018-09-18 06:56 | EKG ---
Test Date: 2018-09-17 Test Time: 13:29:45 Daycare Provider: CARRI MEASUREMENT RESULTS: Intervals: Rate: 85 SC: QRSD: 114 QT: 384 QTc: 456 [place]: P: SC: QRS: 268 T: 262 INTERPRETIVE STATEMENTS: Atrial fibrillation with premature ventricular or aberrantly conducted complexes Right superior axis deviation Incomplete left bundle branch block Minimal voltage criteria for LVH, may be normal variant ST & T wave abnormality, consider lateral ischemia or digitalis effect Abnormal ECG Compared to ECG 09/17/2018 07:54:36 Ventricular premature complex(es) now present Right superior axis now present Left bundle-branch block now present ST (T wave) deviation now present Possible ischemia now present Sinus bradycardia no longer present Early repolarization no longer present Myocardial infarct finding no longer present Electronically Signed On 09-18-18 06:53:25 CDT by Jackson Munoz
[2018-09-18] MEDS: ARFORMOTEROL TARTRATE 15 MCG/2 ML VIAL.NEB NEB SCH ×2 (07:31→19:48)
--- NOTE | 2018-09-18 08:25 | RAD REPORT ---
EXAM DESCRIPTION: RAD - Chest Single View - 09/18/2018 6:49 am CLINICAL HISTORY: Respiratory failure, intubation COMPARISON: September 17 TECHNIQUE: AP portable chest image was obtained 0638 hours . FINDINGS: ET tube remains in place with the tip near the top of the aortic arch. NG tube tip extends into the proximal stomach. Interstitial opacification has improved. No new or progressive lung parenchymal process. Heart and va sculature are normal. No measurable pleural effusion and no pneumothorax. No acute bony abnormality s een. No acute aortic findings suspected. IMPRESSION: Complete or near complete clearing of the interstitial edema or infiltrate pattern since prior day study. ET tube and NG tube remain in place.
[2018-09-18] MEDS: FAMOTIDINE 20 MG/2 ML VIAL IV SCH ×2 (08:40→20:08)
--- NOTE | 2018-09-18 08:40 | P.PN ---
Subjective Date of Service: 09/18/18 Primary Care Provider: None Chief Complaint: Acute respiratory failure Subjective: Improving (Patient is doing better agitated hemodynamically stable) Review of Systems is unable to be obtained Physical Examination - Vital Signs Temperature: 97.5 F Blood Pressure: 92/38 Pulse: 65 Respirations: 14 Pulse Ox (%): 99 - Physical Exam General: Alert, Moderate distress Respiratory: Expiratory wheezes Cardiovascular: No edema Gastrointestinal: Normal bowel sounds Assessment & Plan - Problems (Diagnosis) (1) Respiratory failure Current Visit: Yes Status: Acute Plan: Patient admitted with respiratory failure hypoxic hypercapnic presumed exacerbation of underlying COPD he is a heavy smoker labs is white count is normal blood pressure is slightly low creatinine 2.15 elevated cultures so far negative medication list reviewed plan to wean and extubate hemoglobin is slightly declined GI bleeding has stopped Qualifiers: Chronicity: acute Respiratory failure complication: hypoxia and hypercapnia Qualified Code(s): J96.01 - Acute respiratory failure with hypoxia ; J96.02 - Acute respiratory failure with hypercapnia
[2018-09-18] MEDS: THIAMINE 200 MG/2 ML INJ IVP SCH (08:41)
[2018-09-18] MEDS: FUROSEMIDE 40 MG/4 ML VIAL IV SCH ×2 (08:41→17:08)
--- NOTE | 2018-09-18 12:36 | P.PN ---
Subjective Date of Service: 09/18/18 Primary Care Provider: None Chief Complaint: Acute respiratory failure Patient seen and examined at bedside. No family at bedside. Chart reviewed and case discussed with nursing staff. Extubated 09/18/2018. On nasal cannula, work of breathing improved. Heparin was done due to upper GI bleed. Upper GI bleed resolved, hemoglobin stable. Currently, patient is confused, slightly agitated. Complains of pain with Nuñez. Review of Systems 10-point ROS is otherwise unremarkable Physical Examination - Vital Signs Temperature: 97.5 F Blood Pressure: 123/64 Pulse: 72 Respirations: 14 Pulse Ox (%): 99 - Physical Exam General: Alert, In no apparent distress, Confused Respiratory: Diminished, Crackles/rales Cardiovascular: Regular rate/rhythm, Normal S1 S2 Gastrointestinal: Other (No bleeding noted) Musculoskeletal: No tenderness Integumentary: No rashes Assessment And Plan - Current Problems (Diagnosis) (1) Acute respiratory failure Current Visit: Yes Status: Acute Plan: Differential diagnoses include flash pulmonary edema vs COPD exacerbation vs CHF exacerbation. - status post extubation 09/18/2018. Continue oxygen, wean as tolerated. Continue diuresis - pulmonary consulted, recommendations appreciated. Continue steroids, breathing treatment. - no evidence of pneumonia on chest x-ray, no elevation of WBCs and no other evidence of infection at this time. We will hold off antibiotics at this time. - repeat chest x-ray with improvement. Qualifiers: Respiratory failure complication: hypercapnia Qualified Code(s): J96.02 - Acute respiratory failure with hypercapnia (2) Non-ST elevated myocardial infarction (non-STEMI) Current Visit: Yes Status: Acute Plan: Patient on full dose anticoagulation in the ER. - noted to have blood in ETT, the aPTT elevated at 145, likely elevated due to heparin. No active bleeding noted at this time. - hold heparin at this time due to a bleeding noted. Continue to monitor H&H along with evidence of bleeding. - cardiology consulted, recommendations appreciated (3) Elevated troponin Current Visit: Yes Status: Acute Plan: Elevated troponin Likely secondary to above - cardiology consulted, recommendations appreciated - he will likely need further cardiac evaluation with cardiac catheterization once more medically stable. (4) Acute kidney injury Current Visit: Yes Status: Acute Plan: Likely secondary to hypovolemia secondary to hypotension - Levophed for blood pressure support as unable to give IV fluids due to flash pulmonary edema. - continue to monitor creatinine (5) Hypotension Current Visit: Yes Status: Acute Plan: Off of Levophed. Blood pressure is improved after extubation. Continue to monitor Qualifiers: Hypotension type: hypotension due to hypovolemia Qualified Code(s): I95.89 - Other hypotension; E86.1 - Hypovolemia (6) Acute hyponatremia Current Visit: Yes Status: Acute Plan: Improving. Continue to monitor via a.m. labs after diuresis. (7) Hyperkalemia Current Visit: Yes Status: Acute (8) Nicotine dependence Current Visit: Yes Status: Chronic Qualifiers: Nicotine product type: cigarettes Substance use status: uncomplicated Qualified Code(s): F17.210 - Nicotine dependence, cigarettes, uncomplicated (9) Alcohol use Current Visit: Yes Status: Acute Plan: Monitor for withdrawal symptoms. - patient's family endorses 6-12 pack of beer daily. Last drink last night. - continue Cipro protocol. Ativan as needed - continue multi vitamin (10) Congestive heart failure Current Visit: Yes Status: Chronic Plan: Echo done in the ER shows mild global hypokinesis with ejection fraction of 46% along with aortic stenosis. - Cardiology has been consulted. Qualifiers: Heart failure type: diastolic Heart failure chronicity: acute on chronic Qualified Code(s): I50.33 - Acute on chronic diastolic (congestive) heart failure (11) Hypertension Current Visit: Yes Status: Chronic Plan: Currently with hypotension. Will hold all home blood pressure medications, restart as tolerated. Qualifiers: Hypertension type: essential hypertension Qualified Code(s): I10 - Essential (primary) hypertension - Plan DVT prophylaxis: Hold chemical anticoagulation [place] GI prophylaxis: Famotidine Diet: NPO Disposition: Admit to ICU, pending symptomatic improvement. Critical Care: Yes
[2018-09-19] MEDS: METHYLPREDNISOLONE 40 MG INJ IV SCH ×3 (00:23→16:33)
[2018-09-19] MEDS: LORazepam 2 MG/ML VIAL IV PRN ×8 (01:30→22:57)
[2018-09-19] MEDS ORDERED: METOPROLOL TARTRATE 5 MG/5 ML INJ IV STA (01:50)
[2018-09-19] MEDS: ALBUTEROL 2.5 MG/3 ML NEB SOL NEB SCH ×3 (01:50→14:00)
[2018-09-19] MEDS: IPRATROPIUM BROM 0.5MG/2.5ML NEB SCH ×3 (01:50→14:00)
[2018-09-19] MEDS ORDERED: METOPROLOL TARTRATE 5 MG/5 ML INJ IV ONE ×2 (01:55→01:59)
--- NOTE | 2018-09-19 04:58 | PN ---
Mr. Murphy was admitted on 09/17/2018 and seen on 09/17/2018 because of respiratory failure, non ST-el evation myocardial infarction, COPD exacerbation, CHF exacerbation. He remains intubated today, but improving, has adequate oxygen saturation. He is on inhalers, he is on Lasix. He is diuresing well. He is in sinus rhythm. We are hoping to have him extubated soon. I think Mr. Murphy still needs a heart catheterization done, hopefully will be doing that early next week. No changes in therapy at t his point. UMM/MODL Voice ID: [id number] Report ID: [id number]
--- NOTE | 2018-09-19 07:02 | EKG ---
Test Date: 2018-09-19 Test Time: 01:36:25 Beauty Advisor: RT MEASUREMENT RESULTS: Intervals: Rate: 85 [place]: QRSD: 118 QT: 386 QTc: 459 [place]: P: CO: QRS: 39 T: 243 INTERPRETIVE STATEMENTS: Atrial fibrillation Left ventricular hypertrophy with QRS widening Cannot rule out Inferior infarct, age undetermined ST & T wave abnormality, consider lateral ischemia or digitalis effect Abnormal ECG Compared to ECG 09/17/2018 13:29:45 Myocardial infarct finding now present Ventricular premature complex(es) no longer present Right superior axis no longer present Left bundle-branch block no longer present ST (T wave) deviation still present Possible ischemia still present Electronically Signed On 09-19-18 07:02:09 CDT by Jackson Munoz
[2018-09-19] MEDS: THIAMINE 200 MG/2 ML INJ IVP SCH (09:00)
[2018-09-19] MEDS: FUROSEMIDE 40 MG/4 ML VIAL IV SCH (09:00)
[2018-09-19] MEDS: FAMOTIDINE 20 MG/2 ML VIAL IV SCH (09:00)
[2018-09-19] MEDS: NICOTINE 21 MG/PAT TD SCH (10:15)
--- NOTE | 2018-09-19 10:22 | P.PN ---
Subjective Date of Service: 09/19/18 Primary Care Provider: None Chief Complaint: Altered mental status Patient is delirious unresponsive hemodynamically stable extremely agitated heavy smoker Review of Systems is unable to be obtained Physical Examination - Vital Signs Temperature: 98.7 F Blood Pressure: 136/69 Pulse: 73 Respirations: 16 Pulse Ox (%): 100 - Physical Exam General: Unresponsive Respiratory: Clear to auscultation bilaterally, Diminished Cardiovascular: No edema, Regular rate/rhythm Assessment & Plan - Problems (Diagnosis) (1) Respiratory failure Current Visit: Yes Status: Acute Plan: Patient admitted with respiratory failure secondary to COPD is hypoxic hypercapnic no evidence of sepsis creatinine is mildly elevated BNP was also significantly elevated Qualifiers: Chronicity: acute Respiratory failure complication: hypoxia and hypercapnia Qualified Code(s): J96.01 - Acute respiratory failure with hypoxia ; J96.02 - Acute respiratory failure with hypercapnia (2) Non-ST elevated myocardial infarction (non-STEMI) Current Visit: Yes Status: Acute Plan: Patient has evidence of myocardial infarction by EKG changes will need a cardiac cath as an outpatient as per cardiology
[2018-09-19] MEDS: ARFORMOTEROL TARTRATE 15 MCG/2 ML VIAL.NEB NEB SCH ×2 (11:00→20:00)
[2018-09-19] MEDS ORDERED: LORazepam 2 MG/ML VIAL IV PRN (12:10)
[2018-09-19] MEDS ORDERED: ALBUTEROL 2.5 MG/3 ML NEB SOL NEB PRN (16:00)
--- NOTE | 2018-09-19 16:08 | P.PN ---
Subjective Date of Service: 09/19/18 Primary Care Provider: None Chief Complaint: Altered mental status Patient seen and examined at bedside. No family at bedside. Chart reviewed and case discussed with nursing staff. Extubated 09/18/2018. On nasal cannula, work of breathing improved. Heparin was dC due to upper GI bleed. Upper GI bleed resolved, hemoglobin stable. Currently, patient is confused, slightly agitated still. Improving Slowly Review of Systems 10-point ROS is otherwise unremarkable Physical Examination - Vital Signs Temperature: 98.7 F Blood Pressure: 120/50 Pulse: 67 Respirations: 18 Pulse Ox (%): 100 - Physical Exam General: Alert, In no apparent distress, Oriented x1 Respiratory: Clear to auscultation bilaterally, Normal air movement Cardiovascular: Regular rate/rhythm, Normal S1 S2 Gastrointestinal: Normal bowel sounds, No tenderness Musculoskeletal: No tenderness Integumentary: No rashes Neurological: Normal tone, Normal affect Lymphatics: No axilla or inguinal lymphadenopathy - Studies Medications List Reviewed: Yes Assessment And Plan - Current Problems (Diagnosis) (1) Acute respiratory failure Current Visit: Yes Status: Acute Plan: Differential diagnoses include flash pulmonary edema vs COPD exacerbation vs CHF exacerbation. - status post extubation 09/18/2018. Continue oxygen, wean as tolerated. Continue diuresis - pulmonary consulted, recommendations appreciated. Continue steroids, breathing treatment and Oxygen. - no evidence of pneumonia on chest x-ray, no elevation of WBCs and no other evidence of infection at this time. We will hold off antibiotics at this time. - repeat chest x-ray with improvement. Qualifiers: Respiratory failure complication: hypercapnia Qualified Code(s): J96.02 - Acute respiratory failure with hypercapnia (2) Non-ST elevated myocardial infarction (non-STEMI) Current Visit: Yes Status: Acute Plan: Patient on full dose anticoagulation in the ER. - noted to have blood in ETT, the aPTT elevated at 145, most likely elevated due to heparin. No active bleeding noted at this time. held heparin at this time. -Continue to monitor H&H along with evidence of bleeding. - cardiology consulted, recommendations appreciated (3) Elevated troponin Current Visit: Yes Status: Acute Plan: Elevated troponin Likely secondary to above - cardiology consulted, recommendations appreciated - he will likely need further cardiac evaluation with cardiac catheterization once more medically stable. (4) Acute kidney injury Current Visit: Yes Status: Acute Plan: Likely secondary to hypovolemia secondary to hypotension -BUN.CR Improving today. -continue to monitor creatinine (5) Hypotension Current Visit: Yes Status: Acute Plan: Off of Levophed. Blood pressure is improved after extubation. Continue to monitor Qualifiers: Hypotension type: hypotension due to hypovolemia Qualified Code(s): I95.89 - Other hypotension; E86.1 - Hypovolemia (6) Acute hyponatremia Current Visit: Yes Status: Acute Plan: Improving. Continue to monitor via a.m. labs after diuresis. (7) Hyperkalemia Current Visit: Yes Status: Resolved (8) Nicotine dependence Current Visit: Yes Status: Chronic Qualifiers: Nicotine product type: cigarettes Substance use status: uncomplicated Qualified Code(s): F17.210 - Nicotine dependence, cigarettes, uncomplicated (9) Alcohol use Current Visit: Yes Status: Acute Plan: Monitor for withdrawal symptoms. - patient's family endorses 6-12 pack of beer daily. Last drink 09/17/18 - continue CIWA protocol. Ativan as needed - continue multi vitamin (10) Congestive heart failure Current Visit: Yes Status: Chronic Plan: Echo done in the ER shows mild global hypokinesis with ejection fraction of 46% along with aortic stenosis. - Cardiology has been consulted. James RecCube Route -IV lasix at this time Qualifiers: Heart failure type: diastolic Heart failure chronicity: acute on chronic Qualified Code(s): I50.33 - Acute on chronic diastolic (congestive) heart failure (11) Hypertension Current Visit: Yes Status: Chronic Plan: Currently with hypotension. Will hold all home blood pressure medications, restart as tolerated. Qualifiers: Hypertension type: essential hypertension Qualified Code(s): I10 - Essential (primary) hypertension - Plan DVT prophylaxis: Hold chemical anticoagulation GI prophylaxis: Famotidine Diet: reg Disposition: Pending Clinical Improvement
[2018-09-20] MEDS: METHYLPREDNISOLONE 40 MG INJ IV SCH ×3 (01:08→16:18)
[2018-09-20] MEDS: LORazepam 2 MG/ML VIAL IV PRN ×3 (01:55→07:20)
[2018-09-20] MEDS: ARFORMOTEROL TARTRATE 15 MCG/2 ML VIAL.NEB NEB SCH ×2 (07:45→20:20)
[2018-09-20] MEDS: IPRATROPIUM BROM 0.5MG/2.5ML NEB PRN (07:45)
[2018-09-20] MEDS: NICOTINE 21 MG/PAT TD SCH (08:02)
[2018-09-20] MEDS: THIAMINE 200 MG/2 ML INJ IVP SCH (08:03)
[2018-09-20] MEDS ORDERED: LORazepam 2 MG/ML VIAL IV PRN (08:38)
--- NOTE | 2018-09-20 08:53 | EKG ---
Test Date: 2018-09-20 Test Time: 03:35:23 Brazing Machine Feeder: ZAYNAB MEASUREMENT RESULTS: Intervals: Rate: 84 OR: 164 QRSD: 118 QT: 388 QTc: 458 [place]: P: 51 OR: 164 QRS: -2 T: 219 INTERPRETIVE STATEMENTS: Normal sinus rhythm Left ventricular hypertrophy with QRS widening and repolarization abnormality Cannot rule out Septal infarct, age undetermined Cannot rule out Inferior infarct, age undetermined Abnormal ECG Compared to ECG 09/19/2018 01:36:25 Early repolarization now present Atrial fibrillation no longer present ST (T wave) deviation no longer present Possible ischemia no longer present Myocardial infarct finding still present Electronically Signed On 09-20-18 08:52:29 CDT by Jackson Munoz
[2018-09-20] MEDS ORDERED: FUROSEMIDE 40 MG/4 ML VIAL IV SCH (09:00)
[2018-09-20] MEDS ORDERED: FOLIC ACID 1 MG, MULTIVITAMINS INJ 10 ML, THIAMINE HCL 100 MG in NA CHLORIDE 0.9% 1,000 ML IV SCH (09:00)
--- NOTE | 2018-09-20 09:03 | P.PN ---
Subjective Date of Service: 09/20/18 Primary Care Provider: None Chief Complaint: Delirium tremens Subjective: Improving Patient not as an alcohol withdrawal requiring scheduled Ativan hemodynamically stable Review of Systems is unable to be obtained Physical Examination - Vital Signs Temperature: 97.6 F Blood Pressure: 121/58 Pulse: 76 Respirations: 19 Pulse Ox (%): 94 - Physical Exam General: Confused, Delirious, Unresponsive Neck: Supple Respiratory: Clear to auscultation bilaterally, Expiratory wheezes Cardiovascular: No edema, Regular rate/rhythm Gastrointestinal: Normal bowel sounds, Soft and benign - Studies Medications List Reviewed: Yes Assessment & Plan - Problems (Diagnosis) (1) Respiratory failure Current Visit: Yes Status: Resolved Plan: Respiratory failure secondary to COPD resolved Qualifiers: Chronicity: acute Respiratory failure complication: hypoxia and hypercapnia Qualified Code(s): J96.01 - Acute respiratory failure with hypoxia ; J96.02 - Acute respiratory failure with hypercapnia (2) Non-ST elevated myocardial infarction (non-STEMI) Current Visit: Yes Status: Acute Plan: Patient has evidence of myocardial infarction by EKG changes will need a cardiac cath (3) Delirium tremens Current Visit: Yes Status: Acute Plan: Patient is in alcohol withdrawal will start him on IV multi vitamins Nuñez casted increase Ativan to 2 mg q. 2 labs reviewed he is a little hypoxic hypercapnic white count is normal chemistries mild renal insufficiency creatinine 2.15 slightly worse will reorder labs today (4) Alcohol withdrawal delirium Current Visit: Yes Status: Acute
[2018-09-20 10:26] LABS: Hematocrit 43.3 % (39.6-49.0); MPV 8.5 fL (7.6-11.3); RBC Red Blood Cell Count 4.84 M/uL (4.33-5.43)
[2018-09-20 10:44] LABS: Potassium 4.1 mmol/L (3.5-5.1)
[2018-09-20] MEDS ORDERED: HALOPERIDOL LACT 5 MG/ML INJ IV PRN (11:16)
--- NOTE | 2018-09-20 13:03 | PN ---
Mr. Murphy was admitted with COPD exacerbation, CHF exacerbation, [id number] myocardial infarcti on. He is improving on inhalers, antibiotics, and diuresis. No complaint of chest pain. There is n o edema. Telemetry continued to show sinus rhythm. Laboratory evaluations are unremarkable. We mega l plan to continue present regimen. We will plan a heart catheterization later maybe next week. GLORIA Voice ID: [id number] Report ID: [id number]
--- NOTE | 2018-09-20 14:18 | PN ---
Date of Progress Note: 09/20/2018 Subjective: Ms. Murphy had come in with CHF and COPD exacerbation. He is extubated and having no car diac symptoms and no pulmonary symptoms. He remains in sinus rhythm. There was a plan to send him t o telemetry. We had intended to do a heart catheterization on him eventually. But yesterday, he nicholas t to what sounds like DTs. He remains in the ICU very agitated. We will hold all cardiac invasive w orkup until he gets completely better from a mental status standpoint. UMM/FRANKO Voice ID: [id number] Report ID: [id number]
[2018-09-21] MEDS: METHYLPREDNISOLONE 40 MG INJ IV SCH (00:10)
[2018-09-21] MEDS: ARFORMOTEROL TARTRATE 15 MCG/2 ML VIAL.NEB NEB SCH ×2 (07:20→20:25)
[2018-09-21] MEDS: IPRATROPIUM BROM 0.5MG/2.5ML NEB PRN (07:30)
[2018-09-21] MEDS ORDERED: LORazepam 2 MG/ML VIAL IV PRN (08:58)
[2018-09-21] MEDS: NICOTINE 21 MG/PAT TD SCH (09:11)
[2018-09-21] MEDS: THIAMINE HCL 100 MG TABLET PO SCH (09:14)
--- NOTE | 2018-09-21 09:31 | P.PN ---
Subjective Date of Service: 09/21/18 (Hospitalist note) Primary Care Provider: None Chief Complaint: Delirium tremens Patient is doing much better today his mood more alert responsive cooperative is not required any sedation Review of Systems is unable to be obtained Physical Examination - Vital Signs Temperature: 98.0 F Blood Pressure: 146/72 Pulse: 112 Respirations: 22 Pulse Ox (%): 94 - Physical Exam General: Alert, Cooperative Respiratory: Clear to auscultation bilaterally Cardiovascular: No edema, Normal S1 S2 - Studies Medications List Reviewed: Yes Assessment & Plan - Problems (Diagnosis) (1) Non-ST elevated myocardial infarction (non-STEMI) Current Visit: Yes Status: Resolved Plan: Patient has evidence of myocardial infarction by EKG changes will need a cardiac cath a network director at a long discussion with the family members (2) Delirium tremens Current Visit: Yes Status: Resolved Plan: Doing much better today requiring minimal sedation transfer to the floor (3) COPD (chronic obstructive pulmonary disease) Current Visit: Yes Status: Acute Plan: I suspect that she has COPD from heavy smoking console not to smoke he will need a bronchodilator at the time of discharge possibly tomorrow labs reviewed Qualifiers: Emphysema type: unspecified
[2018-09-22] MEDS: ARFORMOTEROL TARTRATE 15 MCG/2 ML VIAL.NEB NEB SCH (07:55)
[2018-09-22] MEDS: THIAMINE HCL 100 MG TABLET PO SCH (08:30)
[2018-09-22] MEDS: NICOTINE 21 MG/PAT TD SCH (08:30)
--- NOTE | 2018-09-22 10:20 | P.PN ---
Subjective Date of Service: 09/22/18 Primary Care Provider: None Chief Complaint: Coronary artery disease Patient is doing well he is alert responsive cooperative wants to go home schedule for a cardiac catheterization tomorrow creatinine is a little elevated Physical Examination - Vital Signs Temperature: 98 F Blood Pressure: 141/68 Pulse: 76 Respirations: 18 Pulse Ox (%): 95 - Physical Exam General: Alert, Oriented x3, Cooperative Respiratory: Clear to auscultation bilaterally Cardiovascular: No edema, Regular rate/rhythm - Studies Microbiology Data (last 24 hrs): 09/17/18 07:09 Blood - Blood Aerobic Blood Culture - Final No growth in 5 days. 09/17/18 07:09 Blood - Blood Anaerobic Blood Culture - Final No growth in 5 days. 09/17/18 06:50 Blood - Blood Aerobic Blood Culture - Final No growth in 5 days. 09/17/18 06:50 Blood - Blood Anaerobic Blood Culture - Final No growth in 5 days. Medications List Reviewed: Yes Assessment & Plan - Problems (Diagnosis) (1) Non-ST elevated myocardial infarction (non-STEMI) Current Visit: Yes Status: Resolved Plan: Schedule for a cardiac catheterization tomorrow started him on some IV fluids due to elevated creatinine (2) COPD (chronic obstructive pulmonary disease) Current Visit: Yes Status: Acute Plan: Continue with bronchodilators he will need scheduled doses of long-acting bronchodilators at home Qualifiers: Emphysema type: unspecified
[2018-09-22] MEDS ORDERED: NACHLORIDE 0.45% 1,000 ML IV SCH (11:00)
--- NOTE | 2018-09-22 14:20 | P.DS ---
Admission Date: 09/17/18 Discharge Date: 09/22/18 Primary Care Provider: None Disposition: ROUTINE DISCHARGE Discharge Condition: GOOD Reason for Admission: Coronary artery disease - Problems (1) Non-ST elevated myocardial infarction (non-STEMI) Current Visit: Yes Status: Resolved (2) COPD (chronic obstructive pulmonary disease) Current Visit: Yes Status: Acute Qualifiers: Emphysema type: unspecified Brief History of Present Illness: Abhinav is 73 years of age history obtained from [place] sm[place] a pack a day drinks 12 beers a day he came in developed acute shortness of breath he does have shortness of breath on mild exertion no prior history of coronary artery disease patient was intubated transferred to the ICU has some GI bleeding probably due to heparin he is currently alert responsive cooperative hemodynamically stable although is on low-dose of Levophed Hospital Course: Comlicated stay with resp failure poss OH. Develoed delerieum poss alcohol withdrawal. Poss acute OH. Dw cardiology family elected to do cardiac cath as OP >/Coounselled not to smoke. Improved poss COPD. Advised to use an inhlaer. ALso has chronic renal failure. NE of sepsis Vital Signs/Physical Exam: Temp Pulse Resp BP Pulse Ox 97.9 F 90 18 161/82 H 96 09/22/18 12:00 09/22/18 12:00 09/22/18 12:00 09/22/18 12:00 09/22/18 12:00 Laboratory Data at Discharge: WBC 5.3 K/uL (4.3-10.9) 09/20/18 09:57 Hgb 14.1 g/dL (13.6-17.9) 09/20/18 09:57 Hct 43.3 % (39.6-49.0) D 09/20/18 09:57 Plt Count 122 K/uL (152-406) L D 09/20/18 09:57 PT 11.6 SECONDS (9.5-12.5) 09/17/18 06:50 INR 0.98 09/17/18 06:50 APTT 143.8 SECONDS (24.3-36.9) H* 09/17/18 13:10 Sodium 139 mmol/L (136-145) 09/20/18 09:57 Potassium 4.1 mmol/L (3.5-5.1) 09/20/18 09:57 BUN 64 mg/dL (7-18) H D 09/20/18 09:57 Creatinine 1.85 mg/dL (0.55-1.3) H 09/20/18 09:57 Glucose 160 mg/dL (74-106) H 09/20/18 09:57 Magnesium 2.4 mg/dL (1.8-2.4) 09/17/18 06:50 Total Bilirubin 0.6 mg/dL (0.2-1.0) 09/18/18 04:40 AST 29 U/L (15-37) 09/18/18 04:40 ALT 43 U/L (12-78) 09/18/18 04:40 Alkaline Phosphatase 112 U/L (45-117) 09/18/18 04:40 Home Medications: Amlodipine [Norvasc*] 10 mg PO DAILY 09/17/18 Aspirin [Aspir-Low] 81 mg PO DAILY 09/17/18 Carvedilol [Coreg*] 3.125 mg PO BID 09/17/18 Clopidogrel Bisulfate [Plavix*] 75 mg PO DAILY 09/17/18 Furosemide 20 mg PO DAILY 09/17/18 Losartan Potassium 50 mg PO DAILY 09/17/18 Nitroglycerin 0.4 mg SL PRN PRN 09/17/18 Fluticasone/Salmeterol [Advair 250-50 Diskus] 1 each IH BID #1 blst.w.dev New Medications: Fluticasone/Salmeterol [Advair 250-50 Diskus] 1 each IH BID #1 blst.w.dev Followup: Jackson Munoz MD [ACTIVE - CAN ADMIT] - (call to schedule outpatient cardiac cath on sunday09/22/18 )
--- NOTE | 2018-09-22 15:12 | PN ---
Date of Progress Note: 09/22/2018 Subjective: Mr. Murphy has been on telemetry for about 36 hours now. He denied any chest pain. Josh ed any shortness of breath. He continues to have some cough. Telemetry still shows sinus rhythm. H is examination did not reveal any rales or edema. He is awaiting a heart catheterization on 09/24/19 19. He understand the risk and the benefits of the procedure, then he agreed to proceed. UMM/FRANKO Voice ID: [id number] Report ID: [id number]
--- NOTE | 2018-09-22 15:12 | PN ---
Date of Progress Note: 09/21/2018 Subjective: Mr. Murphy had came in with respiratory failure, and non-ST elevation myocardial infarcti on has improved dramatically. Has some issues with mental status changes and confusion on 09/20/2018 . This has resolved, off sedatives. He continues to have some shortness of breath and some cough, b ut no chest pain. We will plan to do a heart catheterization on him on 09/23/2018. This case was di scussed with him and his family and with Dr. Razo. No change in therapy for now. NB/MODL Voice ID: [id number] Report ID: [id number]
== END 2018-09-22 15:02 | disposition home or self-care (01) | DRG 280 ==
LOC: ER 06:32 → ERHOLD 09:10 → 3RD-ICU 12:32 → 4TH 09-21 18:01
PROVIDERS: ADMIT Family Medicine; ATTEND Family Medicine
PROC: 5A1935Z Respiratory Ventilation, Less than 24 Consecutive Hours (ICD-10-PCS; principal; 2018-09-17)
DX: I21.4 Non-ST elevation (NSTEMI) myocardial infarction (principal); I50.33 Acute on chronic diastolic (congestive) heart failure; J96.02 Acute respiratory failure with hypercapnia; J96.01 Acute respiratory failure with hypoxia; N17.9 Acute kidney failure, unspecified; E87.1 Hypo-osmolality and hyponatremia; J44.1 Chronic obstructive pulmonary disease with (acute) exacerbation; E87.2 Acidosis; F10.231 Alcohol dependence with withdrawal delirium; I11.0 Hypertensive heart disease with heart failure; I95.9 Hypotension, unspecified; Z86.73 Personal history of transient ischemic attack (TIA), and cerebral infarction without residual deficits; I25.10 Atherosclerotic heart disease of native coronary artery without angina pectoris; Z85.819 Personal history of malignant neoplasm of unspecified site of lip, oral cavity, and pharynx; F17.210 Nicotine dependence, cigarettes, uncomplicated; E87.5 Hyperkalemia
CPT/HCPCS: 36415; 51702; 71045; 80048; 80053; 80076; 82553; 82805; 82962; 83605; 83735; 83880; 84145; 84484; 85025; 85027; 85610; 85730; 87040; 93005; 93306; 94002; 97116; 97163; 97530; 99291; 99292; J1644; J1940; J2704; J2920; J3010; J3411; J7030; J7605

== ENCOUNTER 2018-09-24 07:50 | Day surgery (SDC) | payer OTHER ==
[2018-09-24] MEDS ORDERED: HEPA 1000U/500MLS 1,000 UNIT/500 ML BAG IV ONE (08:16)
[2018-09-24] MEDS ORDERED: NA CHLORIDE 0.9% 0 ML ONE ×2 (08:33→09:18)
[2018-09-24] MEDS ORDERED: NA CHLORIDE 0.9% 500 ML ONE (08:37)
[2018-09-24] MEDS ORDERED: FENTANYL CITR 100 MCG/2 ML ONE (09:17)
[2018-09-24] MEDS ORDERED: LIDOCAINE 1% MPF 30 ML VIAL ONE ×2 (09:17→09:34)
[2018-09-24] MEDS ORDERED: MIDAZOLAM HCL 2 MG/2 ML INJ ONE ×2 (09:17→10:04)
[2018-09-24] MEDS ORDERED: ATROPINE SULF 1 MG/10 ML SYR IV ONE (09:18)
[2018-09-24] MEDS ORDERED: ACETYLCYST 20% 800 MG/4 ML VIAL PO ONE (09:30)
--- NOTE | 2018-09-24 12:41 | OP ---
Date of Procedure: 09/24/2018 Surgeon: Jackson Munoz MD [place] Supervisor: Domenica Dsouza. Procedures: Left heart catheterization and selective coronary arteriogram. Indication: Non-ST elevation myocardial infarction. History Of Present Illness: Mr. Murphy is 73. He had come in with respiratory failure, congestive he art failure, EF of 45%, abnormal troponin, discharged home approximately 48 hours ago. He wanted to have a heart catheterization, which was recommended to be done as an outpatient. 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 Procedure In Detail: He was prepped and draped in the routine sterile fashion, was given 2 mg of Soo sed for IV sedation. He was prepped and draped in the routine sterile fashion. A 6-Pakistani sheath in troduced in the right common femoral artery. Angiography there showed severe stenosis in the right c ommon iliac. A complete occlusion of the SFA. Access nevertheless was obtained using a Jai wire. The catheterization was done using Tim catheter with exchange over the wire. The left Tim showed multiple 90% stenosis in the LAD proximal and mid. LAD gives collateral to an RCA. The RCA w as completely occluded and the ostium was right dominant. There was a 70-80% stenosis in the circumf terri nondominant. A 6-Pakistani sheath and catheters were used. No complications. Blood Loss: 5 cc. Anesthesia: Total conscious sedation was 30 minutes. Postoperative Diagnosis: Severe coronary artery disease, three-vessel. Plan: For CABG. I will have him hold the Plavix for now. He will see Dr. Russell as an outpatient hopefully this week. UMM/FRANKO Voice ID: [id number] Report ID: [id number]
== END 2018-09-24 12:20 | disposition home or self-care (01) ==
LOC: CCL 07:50
DX: I25.10 Atherosclerotic heart disease of native coronary artery without angina pectoris (principal); J44.1 Chronic obstructive pulmonary disease with (acute) exacerbation; I13.0 Hypertensive heart and chronic kidney disease with heart failure and stage 1 through stage 4 chronic kidney disease, or unspecified chronic kidney disease; I50.22 Chronic systolic (congestive) heart failure; N18.3 Chronic kidney disease, stage 3 (moderate); Z79.82 Long term (current) use of aspirin; Z79.02 Long term (current) use of antithrombotics/antiplatelets; Z79.899 Other long term (current) drug therapy; Z86.73 Personal history of transient ischemic attack (TIA), and cerebral infarction without residual deficits
CPT/HCPCS: 36415; 82565; 84520; 93454; C1893; J2250; J3010; J0583

== ENCOUNTER 2018-11-08 21:05 | Inpatient (IN) | payer OTHER ==
--- OUTSIDE RECORDS SUMMARY | 2018-11-08 21:07 | XMS REPORT | Clinical Summary ---
:1945 Author Organization [facility] Address [address] [place] [address] Care Team Providers Name Role Phone Unavailable Primary Care Provider Unavailable Allergies Not on File Medications Not on file Active Problems Not on file Encounters Date Type Specialty Care Team Description 10/29/2018 Hospital Encounter after 11/07/2017 Social History Tobacco Use Types Packs/Day Years Used Date Never Assessed Sex Assigned at Date Recorded Not on file Job Start Date Occupation Industry Not on file Not on file Not on file Travel History Travel Start Travel End No recent travel history available. Last Filed Vital Signs Not on file Plan of Treatment Not on file Results Not on fileafter 11/07/2017 Insurance Payer Benefit Plan / Group Subscriber ID Type Phone Address MEDICAID - MEDICAID [facility] [employer] [facility] PLAN CHIP xxxxxxxxx UNITED HE[employer] - MEDICARE UNITED MEDICARE HMO xxxxxxxxx [employer]
--- OUTSIDE RECORDS SUMMARY | 2018-11-08 21:07 | XMS REPORT ---
:1945 Author Organization [employer] Care Team Providers Name Role Phone Prudencio Valleh Provider Role Unavailable Allergies, Adverse Reactions, Alerts Substance Reaction Event Type N.K.D.A. Info Not Available Non Drug Allergy Problems Problem Type Condition Code Onset Dates Condition Status Assessment Hx of non-ST elevation myocardial I25.2 Active infarction (NSTEMI) Assessment 3-vessel coronary artery disease I25.10 Active Problem Mixed hyperlipidemia E78.2 Active Problem 3-vessel coronary artery disease I25.10 Active Problem Alcohol abuse F10.10 Active Problem Tobacco use disorder, continuous F17.209 Active Problem Hx of non-ST elevation myocardial I25.2 Active infarction (NSTEMI) Problem Chronic obstructive pulmonary J44.9 Active disease, unspecified COPD type Problem HTN, goal below 140/90 I10 Active Assessment Tobacco use disorder, continuous F17.209 Active Assessment Mixed hyperlipidemia E78.2 Active Assessment HTN, goal below 140/90 I10 Active Assessment Alcohol abuse F10.10 Active Assessment Chronic obstructive pulmonary J44.9 Active disease, unspecified COPD type Medications Medication Code Code Instructions Start End Status Dosage System Date Date Carvedilol [facility] 70470591535 3.125 MG Orally Active 1 tablet Twice daily Atorvastatin [facility] 90276331708 40 MG Orally Active 1 tablet Calcium Once a day Losartan ND 38162726425 50 MG Orally Active 1 tablet Potassium Once a day Advair Diskus [facility] 91136140245 250-50 MCG/DOSE Active 1 puff Inhalation Twice a day Aspir-Low ND 69929658497 81 MG Orally Active 1 tablet Once a day BuPROPion HCl ER ND 78215912940 150 MG Orally Active 1 tablet (XL) Once a day in the morning Lasix [facility] 68697419562 20 MG Orally Active 1 tablet Once a day Nitroglycerin [facility] 79648168063 0.4 MG Active 1 tablet Sublingual Once a day Results No Known Results Summary Purpose [employer] Submission
[2018-11-08 21:19] LABS: Absolute Lymphocytes (CBC) 4.3 K/uL (0.7-4.9); Basophils % 0.5 % (0-1.3); Hematocrit 33.5 % (39.6-49.0); MPV 8.4 fL (7.6-11.3); RBC Red Blood Cell Count 3.68 M/uL (4.33-5.43)
[2018-11-08 21:24] LABS: Protime INR 1.01
[2018-11-08] MEDS ORDERED: NITROGLYCERIN 1 GM PKT TD ONE (21:53)
[2018-11-08 22:16] LABS: Albumin 3.7 g/dL (3.4-5.0); Bilirubin Direct 0.3 mg/dL (0-0.2); Bilirubin Total 0.6 mg/dL (0.2-1.0); Potassium 4.2 mmol/L (3.5-5.1); Protein, Total 7.1 g/dL (6.4-8.2); Troponin (Emerg Dept Use Only) 0.02 ng/mL (0.0-0.045)
[2018-11-08 22:18] LABS: Magnesium 3.7 mg/dL (1.8-2.4)
[2018-11-08 22:19] LABS: Arterial Blood Carboxyhemoglob 2.2 % (0-1.5); Blood Gas Oxyhemoglobin 89.3 % (94-97); Blood O2 Saturation 92.2 % (92-98.5)
--- NOTE | 2018-11-08 22:25 | ER ---
Nurse's Notes [facility] Name: Wade Murphy Age: 73 yrs Sex: Male : 1945 Arrival Date: 11/08/2018 Time: 21:06 Bed 4 Private MD: Diagnosis: Unspecified combined systolic (congestive) and diastolic (congestive) heart failure;Acute respiratory failure with hypoxia;lactic acidosis Presentation: 11/08 21:00 Presenting complaint: Pt's son states that 1 hr ago pt started to have trouble fc breathing, he became pale and very sweaty. States that pt was in [facility] last week for [place]. Has recently been seen by Dr Munoz and told he needs a cardiac bypass. Transition of care: patient was not received from another setting of care. Onset of symptoms was November 08, 2018 at 20:00. Risk Assessment: Do you want to hurt yourself or someone else? Patient reports no desire to harm self or others. Initial Sepsis Screen: Does the patient meet any 2 criteria? RR > 20 per min. HR > 90 bpm. Yes Does the patient have a suspected source of infection? No. Patient's initial sepsis screen is negative. Care prior to arrival: None. 21:00 Method Of Arrival: Wheelchair fc 21:00 Acuity: MARYJANE 1 fc Historical: - Allergies: 21:17 No Known Allergies; fc - Home Meds: 21:45 aspirin 81 mg Oral chew 1 tab once daily [Active]; atorvastatin 40 mg oral tab 1 tab fc nightly [Active]; famotidine 20 mg Oral tab 1 tab once daily [Active]; furosemide 20 mg Oral tab 1 tab once daily [Active]; isosorbide mononitrate 30 mg Oral Tb24 1 tab once daily [Active]; metoprolol tartrate 25 mg Oral tab 1 tab nightly [Active]; ranolazine oral oral 1 tab 2 times per day [Active]; ticagrelor oral oral 1 tab 2 times per day [Active]; - PMHx: 21:17 Hypertension; Myocardial infarction; TIA; COPD; CHF; fc - PSHx: 21:17 None; fc - Immunization history:: Last tetanus immunization: unknown. - Social history:: Smoking status: Patient uses tobacco products, 2 cigs a day, Patient uses alcohol, occasionally. Patient/guardian denies using street drugs. - Ebola Screening: : Patient negative for fever greater than or equal to 101.5 degrees Fahrenheit, and additional compatible Ebola Virus Disease symptoms Patient denies exposure to infectious person Patient denies travel to an Ebola-affected area in the 21 days before illness onset. Screenin:10 Abuse screen: Denies threats or abuse. Denies injuries from another. Nutritional rr5 screening: No deficits noted. Tuberculosis screening: No symptoms or risk factors identified. Fall Risk Secondary diagnosis (15 points) . IV access (20 points). Assessment: 21:00 General: Appears distressed, uncomfortable, ill, Behavior is calm, cooperative, rr5 appropriate for age. 21:00 Pain: Denies pain. Neuro: Level of Consciousness is awake, alert, obeys commands, rr5 Oriented to person, place, time, situation, Appropriate for age. Cardiovascular: Capillary refill < 3 seconds Patient's skin is warm and dry. Respiratory: Airway is patent Respiratory effort is shallow, using tripod position, Respiratory pattern is regular, tachypnea. GI: No signs and/or symptoms were reported involving the gastrointestinal system. : No signs and/or symptoms were reported regarding the genitourinary system. EENT: No signs and/or symptoms were reported regarding the EENT system. Derm: Skin is intact, is thin, Skin is pale, Skin temperature is cool. Musculoskeletal: Circulation, motion, and sensation intact. Capillary refill < 3 seconds. 21:00 Reassessment: seen and examined by ED provider with order made and carried out. hook to rr5 BIPAP. 22:00 Reassessment: Patient appears in no apparent distress at this time. Patient and/or rr5 family updated on plan of care and expected duration. Pain level reassessed. Patient is alert, oriented x 3, equal unlabored respirations, skin warm/dry/pink. on sitting position. feels relieved now. Patient denies pain at this time. Patient states feeling better. Patient states symptoms have improved. 23:15 Reassessment: hospitalist at bedside to assess and admit pt to floor. ak1 11/09 00:06 Reassessment: Patient appears in no apparent distress at this time. Patient and/or rr5 family updated on plan of care and expected duration. Pain level reassessed. Patient is alert, oriented x 3, equal unlabored respirations, skin warm/dry/pink. awaiting for room assignment. 00:10 Reassessment: pt son, Gino Murphy, can be reached at [phone]. ak1 Vital Signs: 11/08 21:00 BP 152 / 74; Pulse 110; Resp 34; Temp 96.3(A); Pulse Ox 78% on R/A; Weight 68.04 kg fc (R); Height 5 ft. 6 in. (167.64 cm) (R); Pain 0/10; 21:47 BP 139 / 57; la1 22:01 BP 124 / 64; Pulse 90; Resp 26; Pulse Ox 100% on 60% BiPAP; Pain 0/10; rr5 23:11 BP 128 / 74; Pulse 89; Resp 24; Temp 97.5(A); Pulse Ox 98% on BiPAP; ak1 11/09 00:03 BP 129 / 59; Pulse 88; Resp 22; Temp 97.5; Pulse Ox 97% on BiPAP; ak1 00:51 BP 136 / 64; Pulse 90; Resp 23; Temp 97.5; Pulse Ox 99% on 60% BiPAP; rr5 11/08 21:00 Body Mass Index 24.21 (68.04 kg, 167.64 cm) fc ED Course: 11/08 21:00 Arm band placed on Patient placed in an exam room, on a stretcher, on oxygen. fc 21:00 Patient has correct armband on for positive identification. Placed in gown. Bed in low fc position. Call light in reach. Side rails up X2. capital project engineer on. Pulse ox on. NIBP on. 21:05 Inserted saline lock: 20 gauge in left antecubital area, using aseptic technique. Blood rr5 collected. 21:05 First set of blood cultures drawn by me. rr5 21:06 Patient arrived in ED. la1 21:07 Julio Fletcher MD is Attending Physician. tw4 21:10 Leif Ibrahim, DAWIT is Primary Nurse. rr5 21:11 Triage completed. fc 21:33 XRAY Chest (1 view) In Process Unspecified. EDMS 21:38 Notified ED physician of a critical lab result(s). lactate 5.5. la1 22:18 Notified ED physician of a critical lab result(s). mag of 3.7. 22:23 Barron Do is Hospitalizing Provider. tw4 11/09 00:20 Repeat lab(s) drawn. by me, sent to lab. lactate. rr5 00:50 No provider procedures requiring assistance completed. Patient admitted, IV remains in rr5 place. intact. Administered Medications: 11/08 21:57 Drug: Nitroglycerin Ointment 2 % 1 inches {Note: right chest.} Route: Transdermal; rr5 Site: anterior chest wall; 23:00 Follow up: Response: No adverse reaction rr5 22:02 Drug: Lasix 40 mg Route: IVP; Site: left antecubital; rr5 23:00 Follow up: Response: No adverse reaction rr5 Outcome: 22:24 Decision to Hospitalize by Provider. tw4 11/09 00:50 Admitted to Med/surg accompanied by nurse, via stretcher, room 222, with oxygen, with rr5 chart, Report called to marck Condition: stable Instructed on the need for admit. 01:22 Patient left the ED. rr5 Signatures: Dispatcher [employer] EDMS Vanessa Gil, RN RN Geronimo Millan RN RN laJoya Crump RN RN akJulio Kolb MD MD tw4 Leif Ibrahim, RN RN rr5 Corrections: (The following items were deleted from the chart) 11/08 21:13 21:12 Patient has correct armband on for positive identification. Placed in gown. Bed fc in low position. Call light in reach. Side rails up X2. rr5 21:13 21:12 capital project engineer on. Pulse ox on. NIBP on. rr5 21:18 21:00 Acuity: MARYJANE 2 [facility] 21:18 21:00 BP 152 / 74; Pulse 110bpm; Resp 34bpm; Pulse Ox 78% RA; 68.04 kg Reported; Height fc 5 ft. 6 in. Reported; BMI: 24.2; Pain 0/10; fc
--- NOTE | 2018-11-08 22:26 | EDPHYS ---
Physician Documentation [facility] Name: Wade Murphy Age: 73 yrs Sex: Male : 1945 Arrival Date: 11/08/2018 Time: 21:06 Bed 4 Private MD: ED Physician Julio Fletcher HPI: 11/09 01:19 This 73 yrs old Male presents to ER via Wheelchair with complaints of tw4 Breathing Difficulty. 01:19 The patient has shortness of breath at rest. Onset: The symptoms/episode began/occurred tw4 today. Duration: The symptoms are continuous, and are unchanged since they started. The patient's shortness of breath is aggravated by exertion, supine position, is alleviated by nothing. Associated signs and symptoms: The patient has no apparent associated signs or symptoms. Severity of symptoms: At their worst the symptoms were severe in the emergency department the symptoms are unchanged. The patient has experienced similar episodes in the past, a few times. Historical: - Allergies: 11/08 21:17 No Known Allergies; fc - Home Meds: 21:45 aspirin 81 mg Oral chew 1 tab once daily [Active]; atorvastatin 40 mg oral tab 1 tab fc nightly [Active]; famotidine 20 mg Oral tab 1 tab once daily [Active]; furosemide 20 mg Oral tab 1 tab once daily [Active]; isosorbide mononitrate 30 mg Oral Tb24 1 tab once daily [Active]; metoprolol tartrate 25 mg Oral tab 1 tab nightly [Active]; ranolazine oral oral 1 tab 2 times per day [Active]; ticagrelor oral oral 1 tab 2 times per day [Active]; - PMHx: 21:17 Hypertension; Myocardial infarction; TIA; COPD; CHF; fc - PSHx: 21:17 None; fc - Immunization history:: Last tetanus immunization: unknown. - Social history:: Smoking status: Patient uses tobacco products, 2 cigs a day, Patient uses alcohol, occasionally. Patient/guardian denies using street drugs. - Ebola Screening: : Patient negative for fever greater than or equal to 101.5 degrees Fahrenheit, and additional compatible Ebola Virus Disease symptoms Patient denies exposure to infectious person Patient denies travel to an Ebola-affected area in the 21 days before illness onset. ROS: 11/09 01:19 Constitutional: Negative for fever, chills, and weight loss, Eyes: Negative for injury, tw4 pain, redness, and discharge, Cardiovascular: Negative for chest pain, palpitations, and edema, Abdomen/GI: Negative for abdominal pain, nausea, vomiting, diarrhea, and constipation, Back: Negative for injury and pain, MS/Extremity: Negative for injury and deformity, Skin: Negative for injury, rash, and discoloration, Neuro: Negative for headache, weakness, numbness, tingling, and seizure. Respiratory: Positive for shortness of breath, Negative for cough, dyspnea on exertion, hemoptysis, orthopnea. Exam: 01:19 Constitutional: This is a well developed, well nourished patient who is awake, alert, tw4 and in no acute distress. Head/Face: Normocephalic, atraumatic. Chest/axilla: Normal chest wall appearance and motion. Nontender with no deformity. No lesions are appreciated. Cardiovascular: Regular rate and rhythm with a normal S1 and S2. No gallops, murmurs, or rubs. Normal PMI, no JVD. No pulse deficits. Abdomen/GI: Soft, non-tender, with normal bowel sounds. No distension or tympany. No guarding or rebound. No evidence of tenderness throughout. Back: No spinal tenderness. No costovertebral tenderness. Full range of motion. 01:19 Respiratory: moderate respiratory distress is noted, Respirations: labored breathing, that is moderate, accessory muscle usage, that is moderate. 01:19 Skin: Warm, dry with normal turgor. Normal color with no rashes, no lesions, and no tw4 evidence of cellulitis. MS/ Extremity: Pulses equal, no cyanosis. Neurovascular intact. Full, normal range of motion. Neuro: Awake and alert, GCS 15, oriented to person, place, time, and situation. Cranial nerves II-XII grossly intact. Motor strength 5/5 in all extremities. Sensory grossly intact. Cerebellar exam normal. Normal gait. Vital Signs: 11/08 21:00 BP 152 / 74; Pulse 110; Resp 34; Temp 96.3(A); Pulse Ox 78% on R/A; Weight 68.04 kg fc (R); Height 5 ft. 6 in. (167.64 cm) (R); Pain 0/10; 21:47 BP 139 / 57; la1 22:01 BP 124 / 64; Pulse 90; Resp 26; Pulse Ox 100% on 60% BiPAP; Pain 0/10; rr5 23:11 BP 128 / 74; Pulse 89; Resp 24; Temp 97.5(A); Pulse Ox 98% on BiPAP; ak1 11/09 00:03 BP 129 / 59; Pulse 88; Resp 22; Temp 97.5; Pulse Ox 97% on BiPAP; ak1 00:51 BP 136 / 64; Pulse 90; Resp 23; Temp 97.5; Pulse Ox 99% on 60% BiPAP; rr5 11/08 21:00 Body Mass Index 24.21 (68.04 kg, 167.64 cm) fc MDM: 11/08 21:07 Patient medically screened. tw4 11/09 01:19 Differential diagnosis: CHF exacerbation, Myocardial Infarction pneumonia, pulmonary tw4 edema, reactive airway disease. Antibiotic administration: Not indicated. Data reviewed: vital signs, nurses notes, lab test result(s), cardiac enzymes, troponin i, CBC, white blood cell count, hemoglobin, hematocrit, platelets, electrolytes, sodium, potassium, chloride, serum bicarbonate, BUN, creatinine, serum glucose, EKG, radiologic studies, plain films. Data interpreted: Pulse oximetry: on room air is 80 %. Interpretation: hypoxia. Plan: O2 by Mask applied. Test interpretation: by ED physician or midlevel provider: ECG, plain radiologic studies. Counseling: I had a detailed discussion with the patient and/or guardian regarding: the historical points, exam findings, and any diagnostic results supporting the discharge/admit diagnosis, lab results, radiology results, the need for further work-up and treatment in the hospital. Physician consultation: Barron Do regarding admission, to the telemetry unit. patient's condition, need to come to ED to see patient, and will see patient in inpatient room. 11/08 21:07 Order name: Basic Metabolic Panel; Complete Time: 22:22 tw4 11/08 22:22 Interpretation: Normal except: GLUC 167; BUN 36; CRE 2.31; GFR 28. tw4 11/08 21:07 Order name: CBC with Diff; Complete Time: 21:43 tw4 11/08 21:43 Interpretation: Normal except: RBC 3.68; HGB 10.7; HCT 33.5. tw4 11/08 21:07 Order name: LFT's; Complete Time: 22:22 [facility] 11/08 22:22 Interpretation: Normal except: ALK 218; AST 57; BILID 0.3. [facility] 11/08 21:07 Order name: Magnesium; Complete Time: 22:22 [facility] 11/08 22:22 Interpretation: Abnormal: MG 3.7. [facility] 11/08 21:07 Order name: NT PRO-BNP; Complete Time: 22:22 [facility] 11/08 22:22 Interpretation: Abnormal: NT PRO-BNP 41277. [facility] 11/08 21:07 Order name: PT-INR; Complete Time: 21:43 [facility] 11/08 21:43 Interpretation: Within normal limits: PT 11.9. [facility] 11/08 21:07 Order name: Troponin (emerg Dept Use Only); Complete Time: 22:22 [facility] 11/08 22:22 Interpretation: Within normal limits: TROPED 0.02. [facility] 11/08 21:07 Order name: XRAY Chest (1 view) [facility] 11/08 21:08 Order name: Lactate; Complete Time: 21:43 11/08 21:43 Interpretation: Normal except: LAC 5.5. [facility] 11/08 21:08 Order name: Blood Culture Adult (2) 11/08 22:21 Order name: ABG Arterial Blood Gas; Complete Time: 22:22 [facility] 11/08 22:22 Interpretation: Normal except: ABGPO2 65.7; VTCG2AS 89.3; ABGCOHB 2.2; ABGTHB 10.2. [facility] 11/08 22:25 Order name: Urine Microscopic Only [facility] 11/08 23:02 Order name: Urine Dipstick--Ancillary (enter results) [facility] 11/08 21:07 Order name: EKG; Complete Time: 21:10 [facility] 11/08 21:07 Order name: Cardiac monitoring; Complete Time: 21:10 [facility] 11/08 21:07 Order name: EKG - Nurse/Tech; Complete Time: 21:10 [facility] 11/08 21:07 Order name: IV Saline Lock; Complete Time: 21:10 [facility] 11/08 21:07 Order name: Labs collected and sent; Complete Time: 21:10 [facility] 11/08 21:07 Order name: O2 Per Protocol; Complete Time: 21:10 tw4 11/08 21:07 Order name: O2 Sat Monitoring; Complete Time: 21:10 tw4 11/08 21:36 Order name: BIPAP ar5 11/08 22:25 Order name: Urine Dipstick-Ancillary (obtain specimen); Complete Time: 22:39 tw4 EC/23 22:20 Rhythm is regular, Sinus tachycardia with Occasional PVCs. QRS Sharps is Normal. VT tw4 interval is normal. QRS interval is normal. No Q waves. T waves are Normal. No ST changes noted. Clinical impression: Sinus tachycardia. Interpreted by me. Reviewed by me. Administered Medications: 21:57 Drug: Nitroglycerin Ointment 2 % 1 inches {Note: right chest.} Route: Transdermal; rr5 Site: anterior chest wall; 23:00 Follow up: Response: No adverse reaction rr5 22:02 Drug: Lasix 40 mg Route: IVP; Site: left antecubital; rr5 23:00 Follow up: Response: No adverse reaction rr5 Disposition: 11/08/18 22:24 Hospitalization ordered by Barron Do for Inpatient Admission. Preliminary diagnosis are Unspecified combined systolic (congestive) and diastolic (congestive) heart failure, Acute respiratory failure with hypoxia, lactic acidosis. - Bed requested for Telemetry/MedSurg (Inpatient). - Status is Inpatient Admission. rr5 - Condition is Stable. - Problem is new. - Symptoms have improved. UTI on Admission? No Signatures: Dispatcher [employer] [facility] Vanessa Gil RN RN Serena Pickard RN RN Julio Fletcher MD MD tw4 Leif Ibrahim RN RN rr5 Corrections: (The following items were deleted from the chart) 21:28 21:11 BLOOD CULTURE*+[id number].LAB.BRZ ordered. [facility] 11/09 00:38 11/08 22:24 Hospitalization Ordered by Barron Do for Inpatient Admission. Preliminary diagnosis is Unspecified combined systolic (congestive) and diastolic (congestive) heart failure; Acute respiratory failure with hypoxia; lactic acidosis. Bed requested for Telemetry/MedSurg (Inpatient). Status is Inpatient Admission. Condition is Stable. Problem is new. Symptoms have improved. UTI on Admission? No. tw4 11/09 01:22 00:38 11/08/2018 22:24 Hospitalization Ordered by Barron Do for Inpatient rr5 Admission. Preliminary diagnosis is Unspecified combined systolic (congestive) and diastolic (congestive) heart failure; Acute respiratory failure with hypoxia; lactic acidosis. Bed requested for Telemetry/MedSurg (Inpatient). Status is Inpatient Admission. Condition is Stable. Problem is new. Symptoms have improved. UTI on Admission? No. cg
[2018-11-08 23:10] LABS: Urine Culture Reflex Order NOT NEEDED
[2018-11-08 23:11] LABS: Urine Bacteria <20 /HPF (NONE SEEN); Urine RBC <5 /HPF (NONE SEEN)
--- NOTE | 2018-11-08 23:49 | P.HP ---
Certification for Inpatient Patient admitted to: Inpatient With expected LOS: >2 Midnights Practitioner: I am a practitioner with admitting privileges, knowledge of patient current condition, hospital course, and medical plan of care. Services: Services provided to patient in accordance with Admission requirements found in Title 42 Section 412.3 of the Code of Federal Regulations Patient History Date of Service: 11/09/18 Reason for admission: Shortness of breath History of Present Illness: 73-year-old man with a history of CAD with multiple vessel disease, reduced LV function with multiple hospitalizations for congestive heart failure was brought to the emergency department due to progressive shortness of breath. According to son patient was discharge from a hospital in [place] about 4 days ago after hospitalization for congestive heart failure. He was told he may have had an [place]. There was a plan to transfer him to [facility] to be evaluated by CT surgery for CABG. Of note, patient had cardiac catheterization by Dr. Munoz in August 2018 which reported 90% stenosis of LAD, completely occluded RCA , 70-80% stenosis of the circumflex artery. At that time CABG was recommended to be done as an outpatient by Dr. Munoz. Patient and son preferred to follow with Dr. Munoz for arrangement for the CABG and declined the inpatient transfer. He was discharged to home but developed progressive shortness of breath a few days later and presented to the ED today. He was in respiratory distress on arrival to the ED. Chest x-ray demonstrated interstitial edema. Patient was placed on BiPAP and given a shot of IV Lasix. Initial troponin is negative. EKG demonstrates sinus tachycardia with first-degree AV block. Patient is admitted for further management. Allergies No Known Allergies Allergy (Verified 11/09/18 01:41) Home medications list reviewed: Yes - Past Medical/Surgical History -: CHF -: HTN -: TIA -: Throat cancer treated with radiation -: CAD with multiple vessel disease. -: Cardiac catheterization. - Family History Family History: Reviewed- Non-Contributory - Social History Alcohol use: Yes CD- Drugs: No Place of Residence: Home Review of Systems Other: General: No fever, no malaise, no unintentional weight loss. Eyes: No eye discharge, CVS: No chest pain, no palpitation, no lightheadedness. GI: No abdominal pain, no nausea no vomit, no constipation, no diarrhea. Genitourinary: No dysuria, no urinary frequency, no incontinence, no hematuria. Musculoskeletal: No joint pains, or joint swelling, no gait instability. Neurology: No headache, no asymmetric, weakness, no problem with swallowing. Except as documented, all other systems reviewed and negative. Physical Examination - Physical Exam General: Alert, Oriented x3, Mild distress HEENT: Atraumatic, Normocephalic, PERRLA, Mucous membr. moist/pink, EOMI Neck: Supple, 2+ carotid pulse no bruit, No Thyromegaly, JVD distended Respiratory: Crackles/rales (Diffuse) Cardiovascular: No edema, Normal pulses, Normal S1 S2, No murmurs Capillary refill: <2 Seconds Gastrointestinal: Normal bowel sounds, Soft and benign, Non-distended, No tenderness Musculoskeletal: No clubbing, No erythema, No tenderness Integumentary: No rashes, No erythema Neurological: Normal speech, Normal strength at 5/5 x4 extr, Cranial nerves 3- 12 intact, Normal affect Lymphatics: No axilla or inguinal lymphadenopathy - Studies Laboratory Data (last 24 hrs) 11/08/18 21:05: PT 11.9, INR 1.01 11/08/18 21:05: WBC 9.7, Hgb 10.7 L, Hct 33.5 L, Plt Count 248 11/08/18 21:05: Sodium 140, Potassium 4.2, BUN 36 H, Creatinine 2.31 H, Glucose 167 H, Magnesium 3.7 H* D, Total Bilirubin 0.6, AST 57 H, ALT 75, Alkaline Phosphatase 218 H Assessment and Plan - Problems (Diagnosis) (1) Acute respiratory failure with hypoxemia Current Visit: Yes Status: Acute (2) Acute on chronic systolic heart failure Current Visit: Yes Status: Acute (3) COPD (chronic obstructive pulmonary disease) Current Visit: No Status: Acute Qualifiers: Emphysema type: unspecified (4) Hypertension Current Visit: No Status: Chronic Qualifiers: Hypertension type: essential hypertension Qualified Code(s): I10 - Essential (primary) hypertension (5) Acute kidney injury Current Visit: No Status: Acute (6) Coronary artery disease Current Visit: Yes Status: Acute Qualifiers: Coronary Disease-Associated Artery/Lesion type: [place] artery - Plan Admit to telemetry Continue BiPAP ventilation IV Lasix given in the ED Will continue diuresis with IV Lasix Trend troponin Titrate Coreg to reduce tachycardia. Aspirin, Plavix, lipitor. Aggressive blood pressure control-Continue Amlodipine, lisinopril. hydralazine IV p.r.n.. Nitrates for preload Daily weights Cardiology consult Bronchodilators Discharge Plan: Home Plan to discharge in: Greater than 2 days - Advance Directives Does patient have a Living Will: No Does patient have a Durable POA for Healthcare: No - Code Status/Comfort Care Code Status Assessed: Yes Code Status: Full Code
[2018-11-09] MEDS ORDERED: ACETAMINOPHEN 500 MG TAB PO PRN (00:02)
[2018-11-09] MEDS ORDERED: ONDANSETRON 4 MG/2 ML VIAL IV PRN (00:02)
[2018-11-09] MEDS ORDERED: HYDRALAZINE HCL 20 MG/ML VIAL IV PRN (00:06)
[2018-11-09 00:24] LABS: Urine Glucose NEGATIVE (NEG); Urine Specific Gravity 1.025 (1.005-1.030)
[2018-11-09 00:25] LABS: Urine Blood NEGATIVE (NEG); Urine Protein NEGATIVE (NEG); Urine pH 6.5 (5.0-7.0)
[2018-11-09] MEDS: HEPARIN 5000 UNIT/ML 1 ML VIAL SQ SCH ×3 (02:18→16:54)
[2018-11-09] MEDS: ALBUTEROL 2.5 MG/3 ML NEB SOL NEB SCH ×3 (02:52→12:30)
[2018-11-09] MEDS: IPRATROPIUM BROM 0.5MG/2.5ML NEB SCH ×4 (02:52→16:00)
[2018-11-09] MEDS ORDERED: PNEUMOCOCCAL VACCINE 0.5 ML IMVAC ONE (08:00)
--- NOTE | 2018-11-09 08:51 | RAD REPORT ---
EXAM DESCRIPTION: RAD - Chest Single View - 11/08/2018 9:45 pm CLINICAL HISTORY: Dyspnea COMPARISON: September 18, 2018 TECHNIQUE: AP portable chest image was obtained 2126 hours . FINDINGS: Lung volumes are low. Interstitial and alveolar opacities are present in both lung bases w orse on the right. Bilateral pleural effusions are present. Cardiomegaly and vascular engorgement are present compared to prior imaging. Trachea is midline. No measurable pleural effusion and no pneumot horax. No acute bony abnormality seen. No acute aortic findings suspected. IMPRESSION: Cardiomegaly, vascular engorgement and lung parenchymal opacities present. Pleural effus ions are also present. CHF/ volume overload is the favored diagnosis. Bilateral pneumonia changes can create this same patte rn.
[2018-11-09] MEDS ORDERED: AMLODIPINE 5 MG TAB PO SCH (09:00)
[2018-11-09] MEDS ORDERED: LISINOPRIL 5 MG TAB PO SCH (09:00)
[2018-11-09] MEDS ORDERED: ISOSORBIDE MONO SR 30 MG TAB PO SCH (09:00)
[2018-11-09] MEDS: FUROSEMIDE 40 MG/4 ML VIAL IV SCH ×2 (09:05→16:53)
--- NOTE | 2018-11-09 10:12 | CON ---
History Of Present Illness: Mr. Murphy is 73, came to the hospital with shortness of breath, chest pa in. This is his second hospital admission for this since he underwent a cardiac cath and had a recom mendation to do bypass surgery. Bypass surgery was not done, apparently the patient wanted to travel to the [place], or he wanted to move there, I am not sure which one was true, but 1 of his hosp italizations was in [place]. He got stabilized enough to come home and now is back in our hospital , developed dyspnea and chest pain. His chest x-ray showed pulmonary edema, it is getting better. Laboratory Data: Shows mild anemia, hemoglobin 10.7. His creatinine is 2.31. Lactic acid level of 5.5. Troponins are normal so far. N-terminal proBNP is very elevated at 13,600. Physical Examination: General: Mr. Murphy is 5 feet,6 inches, 148 pounds. Appears to be ill. Appears to be older than his stated age, not in respiratory distress. Lungs: Reveal basilar crackles. Heart: Regular rate and rhythm. No significant murmur. Abdomen: Soft. Extremities: Mild edema. Impression: The patient has heart failure with depressed ejection fraction and 3 vessel coronary art joseph disease, needs bypass surgery, probably needs to get a defibrillator and be on other medicines fo r heart failure. His renal function is much worse than it was 2 months ago. No doubt he has the car diorenal syndrome where each organ is making the other one sicker. [facility] be a [email or web address] We are going to initiate a transfer to Dr. Davis so he can get bypass surgery and be un destiny the care of heart failure team where external pumps could be given or defibrillators could be giv en, so hopefully that will happen this weekend. In the meantime, we will continue to diurese him. DAMEON/FRANKO Voice ID: [id number] Report ID: [id number]
--- NOTE | 2018-11-09 15:24 | P.DS ---
Admission Date: 11/09/18 Discharge Date: 11/09/18 Disposition: TRANSFER TO [facility] Reason for Admission: Shortness of breath Consultations: Cardiology Brief History of Present Illness: 73-year-old man with a history of CAD with multiple vessel disease, reduced LV function with multiple hospitalizations for congestive heart failure was brought to the emergency department due to progressive shortness of breath. According to son patient was discharge from a hospital in [place] about 4 days ago after hospitalization for congestive heart failure. He was told he may have had an [place]. There was a plan to transfer him to [facility] to be evaluated by CT surgery for CABG. Of note, patient had cardiac catheterization by Dr. Munoz in August 2018 which reported 90% stenosis of LAD, completely occluded RCA , 70-80% stenosis of the circumflex artery. At that time CABG was recommended to be done as an outpatient by Dr. Munoz. Patient and son preferred to follow with Dr. Munoz for arrangement for the CABG and declined the inpatient transfer. He was discharged to home but developed progressive shortness of breath a few days later and presented to the ED today. He was in respiratory distress on arrival to the ED. Chest x-ray demonstrated interstitial edema. Patient was placed on BiPAP and given a shot of IV Lasix. Initial troponin is negative. EKG demonstrates sinus tachycardia with first-degree AV block. Hospital Course: Patient was admitted for further management. He was started on BiPAP ventilation. She was provided IV diuresis here. Cardiology was consulted. He was provided with symptom/supportive care here. Per cardiology, he needs to be transferred to a higher level of care for bypass surgery go. He was transferred to [facility] once he was accepted in a safe and stable manner. Vital Signs/Physical Exam: Temp Pulse Resp BP Pulse Ox 97.1 F 85 21 H 121/73 93 11/09/18 12:00 11/09/18 12:00 11/09/18 12:00 11/09/18 12:00 11/09/18 12:00 General: Alert, In no apparent distress, Oriented x3 HEENT: Atraumatic, PERRLA, EOMI Neck: Supple, JVD not distended Respiratory: Clear to auscultation bilaterally, Normal air movement Cardiovascular: Regular rate/rhythm, Normal S1 S2 Gastrointestinal: Normal bowel sounds, No tenderness Musculoskeletal: No tenderness Integumentary: No rashes Neurological: Normal speech, Normal tone, Normal affect Lymphatics: No axilla or inguinal lymphadenopathy Laboratory Data at Discharge: WBC 9.7 K/uL (4.3-10.9) 11/08/18 21:05 Hgb 10.7 g/dL (13.6-17.9) L 11/08/18 21:05 Hct 33.5 % (39.6-49.0) L 11/08/18 21:05 Plt Count 248 K/uL (152-406) 11/08/18 21:05 PT 11.9 SECONDS (9.5-12.5) 11/08/18 21:05 INR 1.01 11/08/18 21:05 Sodium 140 mmol/L (136-145) 11/08/18 21:05 Potassium 4.2 mmol/L (3.5-5.1) 11/08/18 21:05 BUN 36 mg/dL (7-18) H 11/08/18 21:05 Creatinine 2.31 mg/dL (0.55-1.3) H 11/08/18 21:05 Glucose 167 mg/dL (74-106) H 11/08/18 21:05 Magnesium 3.7 mg/dL (1.8-2.4) H* D 11/08/18 21:05 Total Bilirubin 0.6 mg/dL (0.2-1.0) 11/08/18 21:05 AST 57 U/L (15-37) H 11/08/18 21:05 ALT 75 U/L (12-78) 11/08/18 21:05 Alkaline Phosphatase 218 U/L (45-117) H 11/08/18 21:05 Troponin I 0.02 ng/mL (0.0-0.045) 11/09/18 13:13 Time spent managing pt's care (in minutes): 45
--- NOTE | 2018-11-09 15:41 | EKG ---
Test Date: 2018-11-09 Test Time: 02:42:20 Clinic Business Manager: RT MEASUREMENT RESULTS: Intervals: Rate: 85 UT: QRSD: 120 QT: 394 QTc: 468 [place]: P: UT: QRS: 26 T: 205 INTERPRETIVE STATEMENTS: Atrial fibrillation Intraventricular conduction delay ST & T wave abnormality, non specific Abnormal ECG Compared to ECG 11/08/2018 21:07:57 Sinus tachycardia no longer present Electronically Signed On 11-09-18 15:41:21 CDT by Jeovanny Addison
--- NOTE | 2018-11-09 15:44 | EKG ---
Test Date: 2018-11-08 Test Time: 21:07:57 Dishwasher Busser: KRISTIN MEASUREMENT RESULTS: Intervals: Rate: 104 PA: 236 QRSD: 126 QT: 372 QTc: 489 [place]: P: 106 PA: 236 QRS: 32 T: 160 INTERPRETIVE STATEMENTS: Sinus tachycardia with 1st degree AV block Nonspecific intraventricular block Cannot rule out Septal infarct, age undetermined T wave abnormality, consider lateral ischemia Abnormal ECG Compared to ECG 09/20/2018 03:35:23 First degree AV block now present T-wave abnormality now present Sinus rhythm no longer present Myocardial infarct finding still present Electronically Signed On 11-09-18 15:43:32 CDT by Jeovanny Addison
[2018-11-09] MEDS ORDERED: CARVEDILOL 12.5 MG TAB PO SCH (18:00)
== END 2018-11-09 19:05 | disposition short-term general hospital (02) | DRG 291 ==
LOC: ER 21:05 → ERHOLD 11-09 00:10 → 2ND 11-09 01:03
PROVIDERS: ADMIT Internal Medicine; ATTEND Internal Medicine
PROC: 5A09357 Assistance with Respiratory Ventilation, Less than 24 Consecutive Hours, Continuous Positive Airway Pressure (ICD-10-PCS; principal; 2018-11-09)
DX: I50.23 Acute on chronic systolic (congestive) heart failure (principal); J96.01 Acute respiratory failure with hypoxia; N17.9 Acute kidney failure, unspecified; I11.0 Hypertensive heart disease with heart failure; I25.10 Atherosclerotic heart disease of native coronary artery without angina pectoris; J44.9 Chronic obstructive pulmonary disease, unspecified; I44.0 Atrioventricular block, first degree; R00.0 Tachycardia, unspecified; Z85.819 Personal history of malignant neoplasm of unspecified site of lip, oral cavity, and pharynx; Z86.73 Personal history of transient ischemic attack (TIA), and cerebral infarction without residual deficits
CPT/HCPCS: 36415; 71045; 80048; 80076; 81003; 81015; 82805; 83605; 83735; 83880; 84484; 85025; 85610; 87040; 90670; 93005; 94640; 94660; 96374; 99291; J1644; J1940

== ENCOUNTER 2018-11-19 23:20 | Emergency (ER) | payer OTHER ==
--- OUTSIDE RECORDS SUMMARY | 2018-11-19 23:23 | XMS REPORT | Clinical Summary ---
:1945 Author Organization [facility] Address [address] [facility] [place] [address] Care Team Providers Name Role Phone SantosNafisa Unavailable Allergies No Known Allergies Medications Medication Sig Dispensed Refills Start Date End Date Status apixaban (ELIQUIS) 2.5 Take 1 tablet 60 tablet 0 11/19/2018 Active mg Tab tablet (2.5 mg total) by mouth 2 (two) times daily. aspirin 81 MG EC Take 1 tablet (81 30 tablet 0 11/20/2018 Active tablet mg total) by mouth daily. atorvastatin (LIPITOR) Take 1 tablet (80 30 tablet 0 11/19/2018 Active 80 MG tablet mg total) by mouth nightly. furosemide (LASIX) 20 Take 1 tablet (20 30 tablet 0 11/20/2018 Active MG tablet mg total) by mouth daily. hydrALAZINE Take 1 tablet (25 90 tablet 0 11/19/2018 Active (APRESOLINE) 25 MG mg total) by tablet mouth every 8 (eight) hours. metoprolol (LOPRESSOR) Take 0.5 tablets 30 tablet 0 11/19/2018 Active 25 MG tablet (12.5 mg total) by mouth 2 (two) times daily. sodium bicarbonate 650 Take 2 tablets 120 tablet 0 11/19/2018 Active MG tablet (1,300 mg total) by mouth 2 (two) times daily. pantoprazole Take 1 tablet (40 30 tablet 0 11/20/2018 Active (PROTONIX) 40 MG mg total) by tablet mouth daily. Active Problems Problem Noted Date CAD (coronary artery disease) 11/09/2018 Acute on chronic systolic CHF (congestive heart failure) 11/09/2018 S/P CABG x 4 Encounters Date Type Specialty Care Team Description 11/12/2018 Surgery Giovanni Granados,AORTO MD Yvonne CORONARY MIRA/SVG 11/12/2018 Anesthesia Event Dieudonne Eisenberg 11/09/2018 - Hospital Encounter Cardiology Marlyn Elise Coronary artery disease involving barrow coronary artery of barrow heart with unstable angina pectoris (HCC) (Primary Dx); 11/19/2018 MD Janine Acute on chronic systolic CHF (congestive heart failure) (HCC) Satish Hernandez MD 11/09/2018 Orders Only General Internal Medicine 10/29/2018 Hospital Encounter Marlyn Elise MD after 11/18/2017 Social History Tobacco Use Types Packs/Day Years Used Date Former Smoker Cigarettes 1 03/19/1959 - 08/17/2018 Smokeless Tobacco: Never Used Alcohol Use Drinks/Week oz/Week Comments Yes Sex Assigned at Date Recorded Not on file Job Start Date Occupation Industry Not on file Not on file Not on file Travel History Travel Start Travel End No recent travel history available. Last Filed Vital Signs Vital Sign Reading Time Taken Blood Pressure 167/84 11/19/2018 11:29 AM CDT Pulse 107 11/19/2018 11:29 AM CDT Temperature 36.1 C (97 F) 11/19/2018 11:29 AM CDT Respiratory Rate 18 11/19/2018 11:29 AM CDT Oxygen Saturation 97% 11/19/2018 11:29 AM CDT Inhaled Oxygen Concentration 21% 11/18/2018 8:08 PM CDT Weight 69.4 kg (153 lb) 11/19/2018 8:15 AM CDT Height 167.6 cm (5' 6") 11/12/2018 9:15 PM CDT Body Mass Index 24.69 11/19/2018 8:15 AM CDT Plan of Treatment Date Type Specialty Care Team Description 12/02/2018 Office Visit Cardiology Giovanni Granados MD [address] [facility] [phone] [place], [place] [id number] Procedures Procedure Name Priority Date/Time Associated Comments Diagnosis XR CHEST 1 VIEW Routine 11/19/2018 4:41 Results for this PORTABLE/BEDSIDE AM CDT procedure are in the results section. CBC (HEMOGRAM ONLY) Routine 11/18/2018 5:31 Results for this AM CDT procedure are in the results section. PHOSPHORUS Routine 11/18/2018 5:31 Results for this AM CDT procedure are in the results section. MAGNESIUM Routine 11/18/2018 5:31 Results for this AM CDT procedure are in the results section. BASIC METABOLIC PANEL (7) Routine 11/18/2018 5:31 Results for this AM CDT procedure are in the results section. CBC (HEMOGRAM ONLY) Routine 11/17/2018 5:59 Results for this AM CDT procedure are in the results section. PHOSPHORUS Routine 11/17/2018 5:59 Results for this AM CDT procedure are in the results section. MAGNESIUM Routine 11/17/2018 5:59 Results for this AM CDT procedure are in the results section. BASIC METABOLIC PANEL (7) Routine 11/17/2018 5:59 Results for this AM CDT procedure are in the results section. XR CHEST 1 VIEW Routine 11/16/2018 7:30 Results for this PORTABLE/BEDSIDE AM CDT procedure are in the results section. CBC (HEMOGRAM ONLY) Routine 11/16/2018 3:33 Results for this AM CDT procedure are in the results section. PHOSPHORUS Routine 11/16/2018 3:33 Results for this AM CDT procedure are in the results section. MAGNESIUM Routine 11/16/2018 3:33 Results for this AM CDT procedure are in the results section. BASIC METABOLIC PANEL (7) Routine 11/16/2018 3:33 Results for this AM CDT procedure are in the results section. TRANSFUSION SERVICE 11/15/2018 6:00 REPORT - SCAN PM CDT POCT-GLUCOSE METER Routine 11/15/2018 8:56 Results for this AM CDT procedure are in the results section. XR CHEST 1 VIEW Routine 11/15/2018 4:47 Results for this PORTABLE/BEDSIDE AM CDT procedure are in the results section. CBC (HEMOGRAM ONLY) Routine 11/15/2018 4:31 Results for this AM CDT procedure are in the results section. PHOSPHORUS Routine 11/15/2018 4:31 Results for this AM CDT procedure are in the results section. CALCIUM, IONIZED Routine 11/15/2018 4:31 Results for this AM CDT procedure are in the results section. MAGNESIUM Routine 11/15/2018 4:31 Results for this AM CDT procedure are in the results section. BASIC METABOLIC PANEL (7) Routine 11/15/2018 4:31 Results for this AM CDT procedure are in the results section. PREPARE LEUKO-REDUCED RBC STAT 11/14/2018 11:54 Results for this PM CDT procedure are in the results section. PREPARE LEUKO-REDUCED RBC STAT 11/14/2018 11:54 Results for this PM CDT procedure are in the results section. TRANSFUSION SERVICE 11/14/2018 5:54 REPORT - SCAN PM CDT POCT-GLUCOSE METER Routine 11/14/2018 5:02 Results for this PM CDT procedure are in the results section. APTT Routine 11/14/2018 10:37 Results for this AM CDT procedure are in the results section. HEPARIN ANTIBODY STAT 11/14/2018 9:47 Results for this AM CDT procedure are in the results section. POCT-GLUCOSE METER Routine 11/14/2018 7:21 Results for this AM CDT procedure are in the results section. XR CHEST 1 VIEW Routine 11/14/2018 4:35 Results for this PORTABLE/BEDSIDE AM CDT procedure are in the results section. OXYGEN SATURATION, Routine 11/14/2018 3:45 Results for this MEASURED AM CDT procedure are in the results section. CALCIUM, IONIZED Routine 11/14/2018 3:45 Results for this AM CDT procedure are in the results section. LACTIC ACID, ARTERIAL Routine 11/14/2018 3:25 Results for this AM CDT procedure are in the results section. CBC (HEMOGRAM ONLY) Routine 11/14/2018 3:25 Results for this AM CDT procedure are in the results section. PHOSPHORUS Routine 11/14/2018 3:25 Results for this AM CDT procedure are in the results section. MAGNESIUM Routine 11/14/2018 3:25 Results for this AM CDT procedure are in the results section. BASIC METABOLIC PANEL (7) Routine 11/14/2018 3:25 Results for this AM CDT procedure are in the results section. PREPARE RBC STAT 11/13/2018 11:54 Results for this PM CDT procedure are in the results section. CBC (HEMOGRAM ONLY) Add-On 11/13/2018 8:45 Results for this PM CDT procedure are in the results section. CALCIUM, IONIZED STAT 11/13/2018 8:45 Results for this PM CDT procedure are in the results section. HEMOGLOBIN AND HEMATOCRIT STAT 11/13/2018 8:45 Results for this PM CDT procedure are in the results section. TRANSFUSION SERVICE 11/13/2018 5:53 REPORT - SCAN PM CDT POCT-GLUCOSE METER Routine 11/13/2018 5:09 Results for this PM CDT procedure are in the results section. HEMOGLOBIN STAT 11/13/2018 4:40 Results for this PM CDT procedure are in the results section. TRANSFUSE LEUKO-REDUCED STAT 11/13/2018 3:11 RED BLOOD CELLS PM CDT OXYGEN SATURATION, STAT 11/13/2018 12:41 Results for this MEASURED PM CDT procedure are in the results section. HGB/HCT (H&H) - STAT LAB STAT 11/13/2018 12:41 Results for this PM CDT procedure are in the results section. GLUCOSE-STAT LAB STAT 11/13/2018 12:41 Results for this PM CDT procedure are in the results section. POTASSIUM-STAT LAB STAT 11/13/2018 12:41 Results for this PM CDT procedure are in the results section. SODIUM NA-STAT LAB STAT 11/13/2018 12:41 Results for this PM CDT procedure are in the results section. RRL CRITICAL LABS STAT 11/13/2018 12:41 Results for this (ABG,NA,K,H&H,GLUCOSE) PM CDT procedure are in the results section. POCT-GLUCOSE METER Routine 11/13/2018 11:34 Results for this AM CDT procedure are in the results section. CBC (HEMOGRAM ONLY) STAT 11/13/2018 10:23 Results for this AM CDT procedure are in the results section. CBC (HEMOGRAM ONLY) STAT 11/13/2018 9:42 Results for this AM CDT procedure are in the results section. TRANSFUSE LEUKO-REDUCED STAT 11/13/2018 9:20 RED BLOOD CELLS AM CDT POCT-GLUCOSE METER Routine 11/13/2018 8:08 Results for this AM CDT procedure are in the results section. POCT-GLUCOSE METER Routine 11/13/2018 5:58 Results for this AM CDT procedure are in the results section. OXYGEN SATURATION, STAT 11/13/2018 5:31 Results for this MEASURED AM CDT procedure are in the results section. CBC W/PLT COUNT & AUTO STAT 11/13/2018 4:59 Results for this DIFFERENTIAL AM CDT procedure are in the results section. CBC W/PLT COUNT & AUTO STAT 11/13/2018 4:59 Results for this DIFFERENTIAL AM CDT procedure are in the results section. XR CHEST 1 VIEW Routine 11/13/2018 4:43 Results for this PORTABLE/BEDSIDE AM CDT procedure are in the results section. OXYGEN SATURATION, Routine 11/13/2018 3:33 Results for this MEASURED AM CDT procedure are in the results section. CALCIUM, IONIZED Routine 11/13/2018 3:33 Results for this AM CDT procedure are in the results section. BLOOD GAS, ARTERIAL Routine 11/13/2018 3:33 Results for this AM CDT procedure are in the results section. LACTIC ACID, ARTERIAL Routine 11/13/2018 3:32 Results for this AM CDT procedure are in the results section. CBC (HEMOGRAM ONLY) Routine 11/13/2018 3:32 Results for this AM CDT procedure are in the results section. PHOSPHORUS Routine 11/13/2018 3:32 Results for this AM CDT procedure are in the results section. MAGNESIUM Routine 11/13/2018 3:32 Results for this AM CDT procedure are in the results section. BASIC METABOLIC PANEL (7) Routine 11/13/2018 3:32 Results for this AM CDT procedure are in the results section. POCT-GLUCOSE METER Routine 11/13/2018 2:25 Results for this AM CDT procedure are in the results section. HGB/HCT (H&H) - STAT LAB STAT 11/13/2018 12:13 Results for this AM CDT procedure are in the results section. GLUCOSE-STAT LAB STAT 11/13/2018 12:13 Results for this AM CDT procedure are in the results section. POTASSIUM-STAT LAB STAT 11/13/2018 12:13 Results for this AM CDT procedure are in the results section. SODIUM NA-STAT LAB STAT 11/13/2018 12:13 Results for this AM CDT procedure are in the results section. BLOOD GAS, ARTERIAL STAT 11/13/2018 12:13 Results for this AM CDT procedure are in the results section. RRL CRITICAL LABS STAT 11/13/2018 12:13 Results for this (ABG,NA,K,H&H,GLUCOSE) AM CDT procedure are in the results section. OXYGEN SATURATION, STAT 11/13/2018 12:12 Results for this MEASURED AM CDT procedure are in the results section. LACTIC ACID, ARTERIAL STAT 11/12/2018 10:18 Results for this PM CDT procedure are in the results section. POCT-GLUCOSE METER Routine 11/12/2018 10:13 Results for this PM CDT procedure are in the results section. HGB/HCT (H&H) - STAT LAB Routine 11/12/2018 9:00 Results for this PM CDT procedure are in the results section. GLUCOSE-STAT LAB Routine 11/12/2018 9:00 Results for this PM CDT procedure are in the results section. POTASSIUM-STAT LAB Routine 11/12/2018 9:00 Results for this PM CDT procedure are in the results section. SODIUM NA-STAT LAB Routine 11/12/2018 9:00 Results for this PM CDT procedure are in the results section. BLOOD GAS, ARTERIAL Routine 11/12/2018 9:00 Results for this PM CDT procedure are in the results section. RRL CRITICAL LABS Routine 11/12/2018 9:00 Results for this (ABG,NA,K,H&H,GLUCOSE) PM CDT procedure are in the results section. POCT-GLUCOSE METER Routine 11/12/2018 7:57 Results for this PM CDT procedure are in the results section. XR CHEST 1 VIEW STAT 11/12/2018 7:44 Results for this PORTABLE/BEDSIDE PM CDT procedure are in the results section. BRONCHIAL CULTURE + GRAM STAT 11/12/2018 7:22 Results for this STAIN PM CDT procedure are in the results section. POCT-GLUCOSE METER Routine 11/12/2018 6:59 Results for this PM CDT procedure are in the results section. INTUBATION Routine 11/12/2018 6:49 Coronary artery Results for this PM CDT disease involving procedure are in barrow coronary the results artery of barrow section. heart with unstable angina pectoris (HCC) ECG 12-LEAD STAT 11/12/2018 6:46 Results for this PM CDT procedure are in the results section. ECG 12-LEAD Routine 11/12/2018 6:45 Results for this PM CDT procedure are in the results section. XR CHEST 1 VIEW STAT 11/12/2018 6:40 Results for this PORTABLE/BEDSIDE PM CDT procedure are in the results section. HGB/HCT (H&H) - STAT LAB STAT 11/12/2018 6:18 Results for this PM CDT procedure are in the results section. GLUCOSE-STAT LAB STAT 11/12/2018 6:18 Results for this PM CDT procedure are in the results section. POTASSIUM-STAT LAB STAT 11/12/2018 6:18 Results for this PM CDT procedure are in the results section. SODIUM NA-STAT LAB STAT 11/12/2018 6:18 Results for this PM CDT procedure are in the results section. BLOOD GAS, ARTERIAL STAT 11/12/2018 6:18 Results for this PM CDT procedure are in the results section. RRL CRITICAL LABS STAT 11/12/2018 6:18 Results for this (ABG,NA,K,H&H,GLUCOSE) PM CDT procedure are in the results section. TRANSFUSION SERVICE 11/12/2018 5:50 REPORT - SCAN PM CDT HGB/HCT (H&H) - STAT LAB STAT 11/12/2018 5:19 Results for this PM CDT procedure are in the results section. GLUCOSE-STAT LAB STAT 11/12/2018 5:19 Results for this PM CDT procedure are in the results section. POTASSIUM-STAT LAB STAT 11/12/2018 5:19 Results for this PM CDT procedure are in the results section. SODIUM NA-STAT LAB STAT 11/12/2018 5:19 Results for this PM CDT procedure are in the results section. BLOOD GAS, ARTERIAL STAT 11/12/2018 5:19 Results for this PM CDT procedure are in the results section. RRL CRITICAL LABS STAT 11/12/2018 5:19 Results for this (ABG,NA,K,H&H,GLUCOSE) PM CDT procedure are in the results section. POCT-GLUCOSE METER Routine 11/12/2018 4:59 Results for this PM CDT procedure are in the results section. POCT-GLUCOSE METER Routine 11/12/2018 4:08 Results for this PM CDT procedure are in the results section. XR CHEST 1 VIEW STAT 11/12/2018 1:12 Results for this PORTABLE/BEDSIDE PM CDT procedure are in the results section. PT/APTT STAT 11/12/2018 1:04 Results for this PM CDT procedure are in the results section. HEPATIC FUNCTION PANEL STAT 11/12/2018 1:04 Results for this PM CDT procedure are in the results section. PHOSPHORUS STAT 11/12/2018 1:04 Results for this PM CDT procedure are in the results section. CBC W/PLT COUNT & AUTO STAT 11/12/2018 12:57 Results for this DIFFERENTIAL PM CDT procedure are in the results section. CBC W/PLT COUNT & AUTO STAT 11/12/2018 12:57 Results for this DIFFERENTIAL PM CDT procedure are in the results section. HGB/HCT (H&H) - STAT LAB STAT 11/12/2018 12:55 Results for this PM CDT procedure are in the results section. GLUCOSE-STAT LAB STAT 11/12/2018 12:55 Results for this PM CDT procedure are in the results section. POTASSIUM-STAT LAB STAT 11/12/2018 12:55 Results for this PM CDT procedure are in the results section. SODIUM NA-STAT LAB STAT 11/12/2018 12:55 Results for this PM CDT procedure are in the results section. BLOOD GAS, ARTERIAL STAT 11/12/2018 12:55 Results for this PM CDT procedure are in the results section. OXYGEN SATURATION, STAT 11/12/2018 12:55 Results for this MEASURED PM CDT procedure are in the results section. RRL CRITICAL LABS STAT 11/12/2018 12:55 Results for this (ABG,NA,K,H&H,GLUCOSE) PM CDT procedure are in the results section. LACTIC ACID, ARTERIAL STAT 11/12/2018 12:55 Results for this PM CDT procedure are in the results section. FIBRINOGEN STAT 11/12/2018 12:55 Results for this PM CDT procedure are in the results section. CALCIUM, IONIZED STAT 11/12/2018 12:55 Results for this PM CDT procedure are in the results section. MAGNESIUM STAT 11/12/2018 12:55 Results for this PM CDT procedure are in the results section. BASIC METABOLIC PANEL (7) STAT 11/12/2018 12:55 Results for this PM CDT procedure are in the results section. HGB/HCT (H&H) - STAT LAB STAT 11/12/2018 11:31 Results for this AM CDT procedure are in the results section. GLUCOSE-STAT LAB STAT 11/12/2018 11:31 Results for this AM CDT procedure are in the results section. POTASSIUM-STAT LAB STAT 11/12/2018 11:31 Results for this AM CDT procedure are in the results section. SODIUM NA-STAT LAB STAT 11/12/2018 11:31 Results for this AM CDT procedure are in the results section. BLOOD GAS, ARTERIAL STAT 11/12/2018 11:31 Results for this AM CDT procedure are in the results section. CALCIUM, IONIZED STAT 11/12/2018 11:31 Results for this AM CDT procedure are in the results section. RRL CRITICAL LABS STAT 11/12/2018 11:31 Results for this (ABG,NA,K,H&H,GLUCOSE) AM CDT procedure are in the results section. POCT-ACT Routine 11/12/2018 11:05 Results for this AM CDT procedure are in the results section. HGB/HCT (H&H) - STAT LAB STAT 11/12/2018 11:04 Results for this AM CDT procedure are in the results section. GLUCOSE-STAT LAB STAT 11/12/2018 11:04 Results for this AM CDT procedure are in the results section. POTASSIUM-STAT LAB STAT 11/12/2018 11:04 Results for this AM CDT procedure are in the results section. SODIUM NA-STAT LAB STAT 11/12/2018 11:04 Results for this AM CDT procedure are in the results section. BLOOD GAS, ARTERIAL STAT 11/12/2018 11:04 Results for this AM CDT procedure are in the results section. THROMBOELASTOGRAPH (TEG) STAT 11/12/2018 11:04 Results for this AM CDT procedure are in the results section. FIBRINOGEN STAT 11/12/2018 11:04 Results for this AM CDT procedure are in the results section. APTT STAT 11/12/2018 11:04 Results for this AM CDT procedure are in the results section. CALCIUM, IONIZED STAT 11/12/2018 11:04 Results for this AM CDT procedure are in the results section. RRL CRITICAL LABS STAT 11/12/2018 11:04 Results for this (ABG,NA,K,H&H,GLUCOSE) AM CDT procedure are in the results section. POCT-ACT Routine 11/12/2018 10:36 Results for this AM CDT procedure are in the results section. HGB/HCT (H&H) - STAT LAB Routine 11/12/2018 10:34 Results for this AM CDT procedure are in the results section. GLUCOSE-STAT LAB Routine 11/12/2018 10:34 Results for this AM CDT procedure are in the results section. POTASSIUM-STAT LAB Routine 11/12/2018 10:34 Results for this AM CDT procedure are in the results section. SODIUM NA-STAT LAB Routine 11/12/2018 10:34 Results for this AM CDT procedure are in the results section. BLOOD GAS, ARTERIAL Routine 11/12/2018 10:34 Results for this AM CDT procedure are in the results section. RRL CRITICAL LABS Routine 11/12/2018 10:34 Results for this (ABG,NA,K,H&H,GLUCOSE) AM CDT procedure are in the results section. TRANSFUSE LEUKO-REDUCED Routine 11/12/2018 10:18 RED BLOOD CELLS AM CDT POCT-ACT Routine 11/12/2018 10:11 Results for this AM CDT procedure are in the results section. HGB/HCT (H&H) - STAT LAB Routine 11/12/2018 10:10 Results for this AM CDT procedure are in the results section. GLUCOSE-STAT LAB Routine 11/12/2018 10:10 Results for this AM CDT procedure are in the results section. POTASSIUM-STAT LAB Routine 11/12/2018 10:10 Results for this AM CDT procedure are in the results section. SODIUM NA-STAT LAB Routine 11/12/2018 10:10 Results for this AM CDT procedure are in the results section. BLOOD GAS, ARTERIAL Routine 11/12/2018 10:10 Results for this AM CDT procedure are in the results section. RRL CRITICAL LABS Routine 11/12/2018 10:10 Results for this (ABG,NA,K,H&H,GLUCOSE) AM CDT procedure are in the results section. ANESTHESIA SHERICE Routine 11/12/2018 9:50 Results for this AM CDT procedure are in the results section. POCT-ACT Routine 11/12/2018 9:49 Results for this AM CDT procedure are in the results section. HGB/HCT (H&H) - STAT LAB Routine 11/12/2018 9:46 Results for this AM CDT procedure are in the results section. GLUCOSE-STAT LAB Routine 11/12/2018 9:46 Results for this AM CDT procedure are in the results section. POTASSIUM-STAT LAB Routine 11/12/2018 9:46 Results for this AM CDT procedure are in the results section. SODIUM NA-STAT LAB Routine 11/12/2018 9:46 Results for this AM CDT procedure are in the results section. BLOOD GAS, ARTERIAL Routine 11/12/2018 9:46 Results for this AM CDT procedure are in the results section. RRL CRITICAL LABS Routine 11/12/2018 9:46 Results for this (ABG,NA,K,H&H,GLUCOSE) AM CDT procedure are in the results section. POCT-ACT Routine 11/12/2018 9:23 Results for this AM CDT procedure are in the results section. HGB/HCT (H&H) - STAT LAB Routine 11/12/2018 9:21 Results for this AM CDT procedure are in the results section. GLUCOSE-STAT LAB Routine 11/12/2018 9:21 Results for this AM CDT procedure are in the results section. POTASSIUM-STAT LAB Routine 11/12/2018 9:21 Results for this AM CDT procedure are in the results section. SODIUM NA-STAT LAB Routine 11/12/2018 9:21 Results for this AM CDT procedure are in the results section. BLOOD GAS, ARTERIAL Routine 11/12/2018 9:21 Results for this AM CDT procedure are in the results section. RRL CRITICAL LABS Routine 11/12/2018 9:21 Results for this (ABG,NA,K,H&H,GLUCOSE) AM CDT procedure are in the results section. POCT-ACT Routine 11/12/2018 9:03 Results for this AM CDT procedure are in the results section. OXYGEN SATURATION, STAT 11/12/2018 8:15 Results for this MEASURED AM CDT procedure are in the results section. HGB/HCT (H&H) - STAT LAB STAT 11/12/2018 8:09 Results for this AM CDT procedure are in the results section. GLUCOSE-STAT LAB STAT 11/12/2018 8:09 Results for this AM CDT procedure are in the results section. POTASSIUM-STAT LAB STAT 11/12/2018 8:09 Results for this AM CDT procedure are in the results section. SODIUM NA-STAT LAB STAT 11/12/2018 8:09 Results for this AM CDT procedure are in the results section. BLOOD GAS, ARTERIAL STAT 11/12/2018 8:09 Results for this AM CDT procedure are in the results section. RRL CRITICAL LABS STAT 11/12/2018 8:09 Results for this (ABG,NA,K,H&H,GLUCOSE) AM CDT procedure are in the results section. ENDOSCOPIC HARVEST,VEIN 11/12/2018 7:30 Coronary artery AM CDT disease without angina pectoris, unspecified vessel or lesion type, unspecified whether barrow or transplanted heart Case Notes 2.5 HRS PER [facility] Special Needs (ICU BED NEEDED) BYPASS,AORTO CORONARY MIRA/SVG 11/12/2018 7:30 AM CDT Coronary artery disease without angina pectoris, unspecified vessel or lesion type, unspecified whether barrow or transplanted heart Case Notes 2.5 HRS PER [facility] Special Needs (ICU BED NEEDED) CBC (HEMOGRAM ONLY) Routine 11/12/2018 5:54 AM CDT ECG 12-LEAD Routine 11/12/2018 3:39 AM CDT Procedure Note - Interface, External Ris In - 11/12/2018 3:58 AM CDT Ventricular Rate 91 BPM Atrial Rate 105 BPM QRS Duration 126 ms Q-T Interval 392 ms QTC Calculation(Bazett) 482 ms R [place] 16 degrees T [place] 186 degrees Atrial fibrillation with premature ventricular or aberrantly conducted complexes Non-specific intra-ventricular conduction block Cannot rule out Septal infarct (cited on or before 09-NOV-2018) T wave abnormality, consider inferolateral ischemia or digitalis effect Abnormal ECG When compared with ECG of 09-NOV-2018 23:41, Significant changes have occurred ECG 12-LEAD Routine 11/12/2018 3:39 AM CDT BLOOD GAS, ARTERIAL Routine 11/12/2018 3:21 AM CDT ABORH, MANUAL STAT 11/12/2018 2:02 AM CDT BASIC METABOLIC PANEL (7) Routine 11/12/2018 2:02 AM CDT APTT Routine 11/12/2018 2:02 AM CDT PROTHROMBIN TIME/INR Routine 11/12/2018 2:02 AM CDT HEMOGLOBIN A1C Routine 11/12/2018 2:02 AM CDT MAGNESIUM Routine 11/12/2018 2:02 AM CDT ECHOCARDIOGRAM REPORT - SCAN 11/11/2018 9:22 PM CDT TYPE AND SCREEN, AUTOMATED Routine 11/11/2018 8:10 PM CDT APTT Routine 11/11/2018 8:10 PM CDT APTT Routine 11/11/2018 12:26 PM CDT APTT Routine 11/11/2018 5:38 AM CDT CBC W/PLT COUNT & AUTO Routine 11/11/2018 5:04 AM CDT Results for this DIFFERENTIAL procedure are in the results section. CBC W/PLT COUNT & AUTO Add-On 11/11/2018 5:04 AM CDT Results for this DIFFERENTIAL procedure are in the results section. CBC (HEMOGRAM ONLY) Routine 11/11/2018 5:04 AM CDT LIPID PANEL Add-On 11/11/2018 2:47 AM CDT COMPREHENSIVE METABOLIC Add-On 11/11/2018 2:47 AM CDT Results for this PANEL procedure are in the results section. MAGNESIUM Routine 11/11/2018 2:47 AM CDT BASIC METABOLIC PANEL (7) Routine 11/11/2018 2:47 AM CDT APTT Routine 11/11/2018 2:47 AM CDT HEMOGLOBIN A1C Routine 11/11/2018 2:46 AM CDT APTT Routine 11/10/2018 8:32 PM CDT PLATELET COUNT Routine 11/10/2018 8:32 PM CDT US RENAL COMPLETE Routine 11/10/2018 3:15 PM CDT 2D ECHO W/ DOPPLER Routine 11/10/2018 10:36 AM CDT Results for this (CW/PW/COLOR) procedure are in the results section. CBC W/PLT COUNT & AUTO Routine 11/10/2018 5:46 AM CDT Results for this DIFFERENTIAL procedure are in the results section. LIPID PANEL Add-On 11/10/2018 5:46 AM CDT FERRITIN Routine 11/10/2018 5:46 AM CDT IRON, TIBC, % SAT. (WITHOUT Routine 11/10/2018 5:46 AM CDT Results for this FERRITIN) procedure are in the results section. CBC W/PLT COUNT & AUTO Routine 11/10/2018 5:46 AM CDT Results for this DIFFERENTIAL procedure are in the results section. MAGNESIUM Routine 11/10/2018 5:46 AM CDT BASIC METABOLIC PANEL (7) Routine 11/10/2018 5:46 AM CDT ECG 12-LEAD Routine 11/09/2018 11:41 PM CDT SODIUM, RANDOM URINE Routine 11/09/2018 10:50 PM CDT UREA NITROGEN, RANDOM URINE Routine 11/09/2018 10:50 PM CDT CREATININE, RANDOM URINE Routine 11/09/2018 10:50 PM CDT CBC W/PLT COUNT & AUTO Routine 11/09/2018 10:48 PM CDT Results for this DIFFERENTIAL procedure are in the results section. HEMOGLOBIN A1C Routine 11/09/2018 10:48 PM CDT CBC W/PLT COUNT & AUTO Routine 11/09/2018 10:48 PM CDT Results for this DIFFERENTIAL procedure are in the results section. MAGNESIUM Routine 11/09/2018 10:05 PM CDT BASIC METABOLIC PANEL (7) Routine 11/09/2018 10:05 PM CDT PT/APTT Routine 11/09/2018 10:04 PM CDT XR CHEST 1 VIEW Routine 11/09/2018 9:09 PM CDT Results for this PORTABLE/BEDSIDE procedure are in the results section. after 11/18/2017 Results XR chest 1 view portable / bedside (11/19/2018 4:41 AM CDT)Only the most recent of9 resultswithin the time period is included. Specimen Narrative Performed At FINAL REPORT [facility] INDICATION: pneumonia TECHNIQUE: Chest radiograph, single view, portable technique. FINDINGS / IMPRESSION: Patient is status post recent median sternotomy and presumably cardiac surgery. Engorged central pulmonary veins again demonstrated without overt edema or large pleural effusion. Stable enlargement of the heart shadow. No apical cap or pneumothorax. Signed: Federico Jules MD Report Verified Date/Time:11/19/2018 08:23:56 Reading Location: [facility] Diagnostic Imaging Reading Room - [place] [address] Procedure Note Interface, External Ris In - 11/19/2018 8:26 AM CDT FINAL REPORT INDICATION: pneumonia TECHNIQUE: Chest radiograph, single view, portable technique. FINDINGS / IMPRESSION: Patient is status post recent median sternotomy and presumably cardiac surgery. Engorged central pulmonary veins again demonstrated without overt edema or large pleural effusion. Stable enlargement of the heart shadow. No apical cap or pneumothorax. Signed: Federico Jules MD Report Verified Date/Time: 11/19/2018 08:23:56 Reading Location: [facility] Diagnostic Imaging Reading Room - [place] [address] Performing Organization Address City/State/Zipcode Phone Number [facility] CBC (hemogram only) (11/18/2018 5:31 AM CDT)Only the most recent of11 resultswithin the time period is included. WBC 3.5 3.5 - 10.5 K/L [facility] RBC 3.36 (L) 4.63 - 6.08 M/L [facility] Hemoglobin 9.5 (L) 13.7 - 17.5 GM/DL [facility] Hematocrit 30.2 (L) 40.1 - 51.0 % [facility] MCV 89.9 79.0 - 92.2 fL [facility] MCH 28.3 25.7 - 32.2 pg [facility] MCHC 31.5 (L) 32.3 - 36.5 GM/DL [facility] RDW 15.6 (H) 11.6 - 14.4 % [facility] Platelets 102 (L) 150 - 450 K/CU MM [facility] MPV 10.7 9.4 - 12.4 fL [facility] nRBC 0 0 - 0 /100 WBC [facility] Specimen Blood Performing Organization Address City/[facility]/Zipcode Phone Number [address] [address] [place] Phosphorus (11/18/2018 5:31 AM CDT)Only the most recent of7 resultswithin the time period is included. Phosphorus 2.7 2.3 - 4.7 mg/dL [facility] Specimen Blood Performing Organization Address City/[facility]/Zipcode Phone Number [address] [address] CENTER Magnesium (11/18/2018 5:31 AM CDT)Only the most recent of11 resultswithin the time period is included. Magnesium 2.2 1.6 - 2.6 mg/dL [facility] Specimen Blood Performing Organization Address City/[facility] Phone Number [address] [address] [place] Basic Metabolic Panel (11/18/2018 5:31 AM CDT)Only the most recent of11 resultswithin the time period is included. Sodium 135 (L) 136 - 145 meq/L [facility] Potassium 3.9 3.5 - 5.1 meq/L [facility] Chloride 108 (H) 98 - 107 meq/L [facility] CO2 20 (L) 22 - 29 meq/L [facility] BUN 27 (H) 7 - 21 mg/dL [facility] Creatinine 1.36 (H) 0.57 - 1.25 mg/dL [facility] Glucose 116 (H) 70 - 105 mg/dL [facility] Calcium 9.6 8.4 - 10.2 mg/dL [facility] EGFR 51Comment: ESTIMATED GFR IS mL/min/1.73 sq m [facility] NOT ACCURATE CREATININE [facility] CENTER CLEARANCE IN PREDICTING GLOMERULAR FILTRATION RATE. ESTIMATED GFR IS NOT APPLICABLE FOR DIALYSIS PATIENTS. Specimen Blood Performing Organization Address City/[facility] [place] [address] [phone] [place] TRANSFUSION SERVICE REPORT - SCAN (11/15/2018 6:00 PM CDT)Only the most recent of4 resultswithin the time period is included. Narrative Performed At POC-Glucose meter (11/15/2018 8:56 AM CDT)Only the most recent of13 resultswithin the time period is included. POC-Glucose Meter 123 (H)Comment: TESTED AT 70 - 110 mg/dL [facility] [address] [place], [place] [id number] Specimen Blood Performing Organization Address [facility] [place] [address] [phone] [place] Calcium, Ionized (11/15/2018 4:31 AM CDT)Only the most recent of7 resultswithin the time period is included. Calcium, Ion 1.26 1.12 - 1.27 mmol/L [facility] pH, Blood 7.40 [facility] Specimen Blood Performing Organization Address [facility] Phone Number [address] [address] [place] Prepare Leuko-Red RBC (11/14/2018 11:54 PM CDT)Only the most recent of2 resultswithin the time period is included. CROSSMATCH COMPATIBLE SAFETRACE TX Unit ABO O Pos SAFETRACE TX UNIT NUMBER [id number] SAFETRACE TX Status TX_TIMEINCHART SAFETRACE TX Blood Bank Product RED BLOOD CELLS SAFETRACE TX PRODUCT CODE [id number] SAFETRACE TX Specimen Other Performing Organization Address [facility] Cent[facility]ode Phone Number SAFETRACE TX aPTT (11/14/2018 10:37 AM CDT)Only the most recent of8 resultswithin the time period is included. PTT 22.6 22.5 - 36.0 seconds [facility] Specimen Blood Performing Organization Address [facility] Phone Number [address] [address] [place] Heparin antibody (11/14/2018 9:47 AM CDT) Heparin Ab Negative Negative [facility] Heparin Antibody Optical Density 0.172 <0.400 [facility] 4T Total Score 5 [facility] Specimen Blood Narrative Performed At Probability of HIT based on scoring [facility] system: 6-8=High probability; 4-5=intermediate probability; 0-3=low probability Performing Organization Address [facility] Phone Number [address] [address] [phone] [place] Oxygen saturation, measured (11/14/2018 3:45 AM CDT)Only the most recent of7 resultswithin the time period is included. O2 Saturation (Measured) 69.7 % [facility] Specimen Blood Performing Organization Address [facility] Phone Number [address] [address] [place] Lactic Acid, Arterial (11/14/2018 3:25 AM CDT)Only the most recent of4 resultswithin the time period is included. Lactate, Art 1.3 0.5 - 2.2 mmol/L [facility] Specimen Blood, Arterial Performing Organization Address [facility] Phone Number [address] [address] [phone] CENTER Prepare RBC (11/13/2018 11:54 PM CDT) CROSSMATCH COMPATIBLE SAFETRACE TX Unit ABO O Pos SAFETRACE TX UNIT NUMBER [id number] SAFETRACE TX Status RETURNED FROM ISSUE SAFETRACE TX Blood Bank Product RED BLOOD CELLS SAFETRACE TX PRODUCT CODE [id number] SAFETRACE TX CROSSMATCH COMPATIBLE SAFETRACE TX Unit ABO O Pos SAFETRACE TX UNIT NUMBER [id number] SAFETRACE TX Status RETURNED FROM ISSUE SAFETRACE TX Blood Bank Product RED BLOOD CELLS SAFETRACE TX PRODUCT CODE [id number] SAFETRACE TX CROSSMATCH COMPATIBLE SAFETRACE TX Unit ABO O Pos SAFETRACE TX UNIT NUMBER [id number] SAFETRACE TX Status RETURNED FROM ISSUE SAFETRACE TX Blood Bank Product RED BLOOD CELLS SAFETRACE TX PRODUCT CODE [id number] SAFETRACE TX CROSSMATCH COMPATIBLE SAFETRACE TX Unit ABO O Pos SAFETRACE TX UNIT NUMBER [id number] SAFETRACE TX Status TX_TIMEINCHART SAFETRACE TX Blood Bank Product RED BLOOD CELLS SAFETRACE TX PRODUCT CODE [id number] SAFETRACE TX Performing Organization Address [facility] Phone Number SAFETRACE TX Hemoglobin and hematocrit (11/13/2018 8:45 PM CDT) Hemoglobin 9.1 (L) 13.7 - 17.5 GM/DL [facility] Hematocrit 27.6 (L) 40.1 - 51.0 % [facility] Specimen Blood Performing Organization Address [facility] Phone Number [address] [address] CENTER Hemoglobin (11/13/2018 4:40 PM CDT) Hemoglobin 9.6 (L) 13.7 - 17.5 GM/DL [facility] Specimen Blood Narrative Performed At For hypotension [facility] Performing Organization Address [facility] Cent[facility] Phone Number [address] [address] [phone] CENTER Transfuse Leuko-Red RBC (11/13/2018 3:11 PM CDT)Only the most recent of5 resultswithin the time period is included.Potassium-Stat Lab (11/13/2018 12:41 PM CDT)Only the most recent of13 resultswithin the time period is included. Potassium 4.0 3.6 - 5.5 meq/L [facility] Specimen Blood, Arterial Performing Organization Address [facility] Phone Number [address] [address] [phone] [place] Sodium Na-Stat Lab (11/13/2018 12:41 PM CDT)Only the most recent of13 resultswithin the time period is included. Sodium 138 135 - 148 meq/L [facility] Specimen Blood, Arterial Performing Organization Address [facility] Phone Number [address] [address] [place] Glucose-Stat Lab (11/13/2018 12:41 PM CDT)Only the most recent of13 resultswithin the time period is included. Glucose 148 (H) 70 - 110 mg/dL [facility] Specimen Blood, Arterial Performing Organization Address [facility] Phone Number [address] [address] [place] HGB/HCT (H&H)-Stat Lab (11/13/2018 12:41 PM CDT)Only the most recent of13 resultswithin the time period is included. Hemoglobin 9.5 (L) 13.0 - 16.8 g/dL [facility] Hematocrit 28.0 (L) 40.0 - 50.0 % [facility] Specimen Blood, Arterial Performing Organization Address [facility] Phone Number [address] [address] [place] CBC with platelet count + automated diff (11/13/2018 4:59 AM CDT)Only the most recent of5 resultswithin the time period is included. WBC 3.6 3.5 - 10.5 K/L [facility] RBC 2.53 (L) 4.63 - 6.08 M/L [facility] Hemoglobin 7.4 (L) 13.7 - 17.5 GM/DL [facility] Hematocrit 23.7 (L) 40.1 - 51.0 % [facility] MCV 93.7 (H) 79.0 - 92.2 fL [facility] MCH 29.2 25.7 - 32.2 pg [facility] MCHC 31.2 (L) 32.3 - 36.5 GM/DL [facility] RDW 14.9 (H) 11.6 - 14.4 % [facility] Platelets 70 (L) 150 - 450 K/CU MM [facility] MPV 10.6 9.4 - 12.4 fL [facility] nRBC 0 0 - 0 /100 WBC [facility] % Neutros 58 % [facility] % Lymphs 28 % [facility] % Monos 13 % [facility] % Eos 1 % [facility] % Baso 1 % [facility] # Neutros 2.05 1.78 - 5.38 K/L [facility] # Lymphs 1.01 (L) 1.32 - 3.57 K/L [facility] # Monos 0.45 0.30 - 0.82 K/L [facility] # Eos 0.02 (L) 0.04 - 0.54 K/L [facility] # Baso 0.02 0.01 - 0.08 K/L [facility] Immature Granulocytes-Relative 0 0 - 1 % [facility] Specimen Blood Performing Organization Address City/State/Zipcode Phone Number [facility] [address] [place] [address] [phone] [place] Blood gas, arterial (11/13/2018 3:33 AM CDT)Only the most recent of14 resultswithin the time period is included. pH, Arterial 7.38 7.35 - 7.45 [facility] pCO2, Arterial 31 (L) 35 - 45 mmHg [facility] pO2, Arterial 104 (H) 80 - 90 mmHg [facility] O2 Sat, Arterial 97.7 (H) 96.0 - 97.0 % [facility] HCO3, Arterial 18 (L) 21 - 29 mmol/L [facility] Base Excess, Arterial -6.3 (L) -2.0 - 3.0 mmol/L [facility] Patient Temperature 37.1 C [facility] FIO2 40.0 % [facility] Specimen Blood, Arterial Performing Organization Address City/State/Zipcode Phone Number [address] [address] [place] Bronchial culture + gram stain (11/12/2018 7:22 PM CDT) Result 1+ Pseudomonas aeruginosa (A) [facility] Gram Stain Result 2+ White blood cells seen [facility] Gram Stain Result No organisms seen [facility] Specimen BAL Narrative Performed At 2+ Normal respiratory brigid present [facility] Organism Antibiotic Method Susceptibility Pseudomonas aeruginosa Amikacin <=8: Susceptible Pseudomonas aeruginosa Aztreonam 4: Susceptible Pseudomonas aeruginosa Cefepime <=4: Susceptible Pseudomonas aeruginosa Ceftazidime <=1: Susceptible Pseudomonas aeruginosa Ciprofloxacin <=0.5: Susceptible Pseudomonas aeruginosa Gentamicin <=2: Susceptible Pseudomonas aeruginosa Levofloxacin <=1: Susceptible Pseudomonas aeruginosa Meropenem 1: Susceptible Pseudomonas aeruginosa Piperacillin <=16: Susceptible Pseudomonas aeruginosa Piperacillin + Tazobactam <=8: Susceptible Pseudomonas aeruginosa Tobramycin <=2: Susceptible Performing Organization Address City/State/Zipcode Phone Number [facility] [address] [place] [address] [phone] CENTER INTUBATION (11/12/2018 6:49 PM CDT) Narrative Performed At Gian Gar MD 11/12/20186:55 PM Intubation Date/Time: 11/12/2018 6:50 PM Performed by: Gian Gar MD Authorized by: Marlyn Elise MD Consent: The procedure was performed in an emergent situation. Verbal consent obtained. Indications: respiratory distress andrespiratory failure Intubation method: video-assisted Patient status: paralyzed (RSI) Preoxygenation: BVM Sedatives: etomidate (20 mg) Paralytic: rocuronium (50 mg) Laryngoscope size: Mac 4 Tube size: 8.0 mm Tube type: cuffed Number of attempts: 1 Cords visualized: yes (grade 1) Post-procedure assessment: CO2 detector Breath sounds: equal Cuff inflated: yes ETT to lip: 23 cm Tube secured with: ETT delgado Patient tolerance: Patient tolerated the procedure well with no immediate complications ECG 12 lead (11/12/2018 6:46 PM CDT)Only the most recent of4 resultswithin the time period is included. Specimen Narrative Performed At Ventricular Rate 78 BPM GE MUSE Atrial Rate 78 BPM P-R Interval 162 ms QRS Duration 112 ms Q-T Interval 406 ms QTC Calculation(Bazett) 462 ms P [place] 37 degrees R [place] 24 degrees T [place] 166 degrees Sinus rhythm with Premature atrial complexes Poor R wave progression Cannot rule out Anterior infarct , age undetermined ST & T wave abnormality, consider lateral ischemia Prolonged QT Abnormal ECG When compared with ECG of 12-NOV-2018 18:45, Premature atrial complexes are now Present Confirmed by Onesimo SHAW BASANT ([id number]) on 11/15/2018 5:37:15 PM Procedure Note Interface, External Ris In - 11/15/2018 5:37 PM CDT Ventricular Rate 78 BPM Atrial Rate 78 BPM P-R Interval 162 ms QRS Duration 112 ms Q-T Interval 406 ms QTC Calculation(Bazett) 462 ms P [place] 37 degrees R [place] 24 degrees T [place] 166 degrees Sinus rhythm with Premature atrial complexes Poor R wave progression Cannot rule out Anterior infarct , age undetermined ST & T wave abnormality, consider lateral ischemia Prolonged QT Abnormal ECG When compared with ECG of 12-NOV-2018 18:45, Premature atrial complexes are now Present Confirmed by Onesimo SHAW BASANT ([id number]) on 11/15/2018 5:37:15 PM Performing Organization Address [facility] Phone Number GE MUSE PT/aPTT (11/12/2018 1:04 PM CDT)Only the most recent of2 resultswithin the time period is included. Protime 16.6 (H) 11.9 - 14.2 seconds [facility] INR 1.4 <=5.9 [facility] PTT 30.1 22.5 - 36.0 seconds [facility] Specimen Blood Narrative Performed At Effective 08/14/2018: PT Reference Range [facility] Change New: 11.9-14.2Previous: 11.7-14.7 RECOMMENDED COUMADIN/WARFARIN INR THERAPY RANGES STANDARD DOSE: 2.0-3.0Includes: PROPHYLAXIS for venous thrombosis, systemic embolization; TREATMENT for venous thrombosis and/or pulmonary embolus. HIGH RISK: Target INR is 2.5-3.5 for patients wiht mechanical heart valves. Performing Organization Address [facility] Phone Number [address] [address] CENTER Hepatic function panel (11/12/2018 1:04 PM CDT) Protein, Total 5.3 (L)Comment: Specimen 6.0 - 8.3 gm/dL [facility] slightly hemolyzed [facility] Albumin 3.4 (L)Comment: Specimen 3.5 - 5.0 g/dL [facility] slightly hemolyzed [facility] Total Bilirubin 1.5 (H)Comment: Specimen 0.2 - 1.2 mg/dL [facility] hemolyzed [facility] [place] Bilirubin, Direct 0.8 (H)Comment: Specimen 0.1 - 0.5 mg/dL [facility] slightly hemolyzed [facility] [place] Alkaline Phosphatase 103 40 - 150 U/L [facility] AST 29Comment: Specimen 5 - 34 U/L [facility] slightly hemolyzed [facility] [place] ALT 27Comment: Specimen 6 - 55 U/L [facility] slightly hemolyzed [facility] [place] Specimen Blood Performing Organization Address City/[facility] Phone Number [address] [address] [place] Fibrinogen (11/12/2018 12:55 PM CDT)Only the most recent of2 resultswithin the time period is included. Fibrinogen 295 225 - 434 mg/dl [facility] Specimen Blood Performing Organization Address [facility] Phone Number [address] [address] [phone] [place] POC ACTIVATED CLOTTING TIME (11/12/2018 11:05 AM CDT)Only the most recent of6 resultswithin the time period is included. Activated Clotting Time 109Comment: TESTED AT sec [place] [address] Specimen Blood Performing Organization Address [facility] Phone Number [address] [address] [place] Thromboelastograph (TEG) (11/12/2018 11:04 AM CDT) TEG Activated Clotting Time 7.6 (H) 4.0 - 7.0 minutes [facility] TEG Fibrinogen Activity 64.8 61.0 - 73.0 degrees [facility] TEG Platelet Aggregation 55.7 55.0 - 65.0 MM [facility] TEG-H Activated Clotting Time 8.4 (H) 4.0 - 7.0 minutes [facility] TEG-H Fibrinogen Activity 60.9 (L) 61.0 - 73.0 degrees [facility] TEG-H Platelet Aggregation 35.8 (L) 55.0 - 65.0 MM [facility] Specimen Blood Performing Organization Address City/State/Zipcode Phone Number [facility] [address] [place] [address] CENTER SHERICE (11/12/2018 9:50 AM CDT) Narrative Performed At Giovanni Chi MD 11/12/2018 11:03 AM SHERICE Date: 11/12/2018 9:51 AM Sex: Male Location: OR Requesting Physician: Giovanni Granados MD Examiner: Giovanni Chi MD Indication: CHFIntubated Patient screened for esoph disease: Yes Insertion: easy Probe Type: multiplane Modalities: 2D, CFM, CWD and PWD Aorta Size Dissection Plaque Thick Plaque Mobile Ascending Ao normal No < 3mm No Ao Arch normal No < 3mm No Descending Ao normal No 3mm+ No Valves Annulus Stenosis Area (cm3) Gradient Regurgitation Leaflet Morphology Leaflet Motion Not Visualized Aortic valve calcified none mild (2+) calcified restricted Mitral valve normal none trivial (1+) normal normal Tricuspid normal none trivial (1+) normal normal Atria Size SEC Thrombus Tumor Device Right Atrium normal Yes No No No Left Atrium normal Yes No No device Interatrial Septum: Morphology: lipomatous hypertrophy ASD: primum Shunt: left to right Interventricular Septum: Morphology: normal Defect: Shunt: Ventricles Cavity size Dimension Hypertrophy Thrombus Global FXN EF Right ventricle dilatedNo No mildly impaired Left ventricle dilatedNo No moderately impaired Pre Intervention Summary: EF 35-40. Global hypokinesia. RV function intact. Small PFO. Mild MR, moderate AI P1/2 230. leaft and right cusps fused/calcific at the commisures. There is spontaneous contrast in the left atrium and the appendage velocities are reduced. No thrombus visualized. The descending aorta is OK in caliber, there is plaque throughout and large but not mobile. Post Intervention Summary:S/p ACB x4 with improvement in LVEF to 40-45%. Inf wall mildly hypokinetic. RV function preserved. No new valvulopathy. AI unchanged, Jet to LVOT 18%. No dissection in Asc Ao s/p cannula removal. Findings communicated to surgical team. Procedure Note Giovanni Chi MD - 11/12/2018 9:50 AM CDT SHERICE Date: 11/12/2018 9:51 AM Sex: Male Location: OR Requesting Physician: Giovanni Granados MD Examiner: Giovanni Chi MD Indication: CHF Intubated Patient screened for esoph disease: Yes Insertion: easy Probe Type: multiplane Modalities: 2D, CFM, CWD and PWD Aorta Size Dissection Plaque Thick Plaque Mobile Ascending Ao normal No < 3mm No Ao Arch normal No < 3mm No Descending Ao normal No 3mm+ No Valves Annulus Stenosis Area (cm3) Gradient Regurgitation Leaflet Morphology Leaflet Motion Not Visualized Aortic valve calcified none mild (2+) calcified restricted Mitral valve normal none trivial (1+) normal normal Tricuspid normal none trivial (1+) normal normal Atria Size SEC Thrombus Tumor Device Right Atrium normal Yes No No No Left Atrium normal Yes No No device Interatrial Septum: Morphology: lipomatous hypertrophy ASD: primum Shunt: left to right Interventricular Septum: Morphology: normal Defect: Shunt: Ventricles Cavity size Dimension Hypertrophy Thrombus Global FXN EF Right ventricle dilated No No mildly impaired Left ventricle dilated No No moderately impaired Pre Intervention Summary: EF 35-40. Global hypokinesia. RV function intact. Small PFO. Mild MR, moderate AI P1/2 230. leaft and right cusps fused/calcific at the commisures. There is spontaneous contrast in the left atrium and the appendage velocities are reduced. No thrombus visualized. The descending aorta is OK in caliber, there is plaque throughout and large but not mobile. Post Intervention Summary: S/p ACB x4 with improvement in LVEF to 40-45%. Inf wall mildly hypokinetic. RV function preserved. No new valvulopathy. AI unchanged, Jet to LVOT 18%. No dissection in Asc Ao s/p cannula removal. Findings communicated to surgical team. vale VILLAGOMEZ (11/12/2018 2:02 AM CDT) ABO Grouping O [facility] Rh Factor POS [facility] Specimen Blood Performing Organization Address City/State/Zipcode Phone Number [facility] [address] [place], [place] [phone] Prothrombin time/INR (11/12/2018 2:02 AM CDT) Protime 14.0 11.9 - 14.2 seconds [facility] INR 1.1 <=5.9 [facility] Specimen Blood Narrative Performed At Effective 08/14/2018: PT Reference Range [facility] Change New: 11.9-14.2Previous: 11.7-14.7 RECOMMENDED COUMADIN/WARFARIN INR THERAPY RANGES STANDARD DOSE: 2.0-3.0Includes: PROPHYLAXIS for venous thrombosis, systemic embolization; TREATMENT for venous thrombosis and/or pulmonary embolus. HIGH RISK: Target INR is 2.5-3.5 for patients wiht mechanical heart valves. Performing Organization Address [facility] Phone Number [address] [address] [place] Hemoglobin A1c (11/12/2018 2:02 AM CDT)Only the most recent of3 resultswithin the time period is included. Hemoglobin A1C 5.8 4.3 - 6.1 % [facility] Specimen Blood Performing Organization Address City/[facility] Phone Number [address] [address] [place] ECHOCARDIOGRAM REPORT - SCAN (11/11/2018 9:22 PM CDT) Narrative Performed At Type and screen, automated (11/11/2018 8:10 PM CDT) ABO/RH AUTOMATED (BEAKER) O POSITIVE [facility] Ab Scrn NEGATIVE [facility] Specimen Blood Performing Organization Address [facility] Phone Number [address] [address] [phone] Lipid panel (11/11/2018 2:47 AM CDT)Only the most recent of2 resultswithin the time period is included. Triglycerides 64 mg/dL [facility] Cholesterol 99 mg/dL [facility] HDL 34 mg/dL [facility] LDL Calculated 52 mg/dL [facility] Specimen Blood Narrative Performed At Triglyceride Reference Range: [facility] Low Risk <150 [id number] High Risk 200-499 Very High Risk>=500 Cholesterol Reference Range: Low Risk <200 [id number] High Risk>240 HDL Cholesterol Reference Range: Low Risk >=60 High Risk <40 LDL Cholesterol Reference Range: Optimal<100 Near [id number] Iqkl442-590 Very High >=190 Performing Organization Address City/State/Zipcode Phone Number [facility] [address] [place] [address] CENTER Comprehensive metabolic panel (11/11/2018 2:47 AM CDT) Protein, Total 5.5 (L) 6.0 - 8.3 gm/dL [facility] Albumin 3.1 (L) 3.5 - 5.0 g/dL [facility] Alkaline Phosphatase 149 40 - 150 U/L [facility] Total Bilirubin 0.5 0.2 - 1.2 mg/dL [facility] Sodium 137 136 - 145 meq/L [facility] Potassium 3.9 3.5 - 5.1 meq/L [facility] Chloride 105 98 - 107 meq/L [facility] CO2 22 22 - 29 meq/L [facility] BUN 40 (H) 7 - 21 mg/dL [facility] Creatinine 2.21 (H) 0.57 - 1.25 mg/dL [facility] Glucose 90 70 - 105 mg/dL [facility] Calcium 8.9 8.4 - 10.2 mg/dL [facility] AST 24 5 - 34 U/L [facility] ALT 36 6 - 55 U/L [facility] EGFR 29Comment: ESTIMATED GFR mL/min/1.73 sq m [facility] IS NOT ACCURATE [facility] CREATININE CLEARANCE IN PREDICTING GLOMERULAR FILTRATION RATE. ESTIMATED GFR IS NOT APPLICABLE FOR DIALYSIS PATIENTS. Specimen Blood Performing Organization Address City/State/Zipcode Phone Number [facility] [address] [place] [address] [phone] CENTER Platelet count (11/10/2018 8:32 PM CDT) Platelets 164 150 - 450 K/CU MM [facility] Specimen Blood Performing Organization Address City/State/Zipcode Phone Number [address] [phone] CENTER US renal complete (11/10/2018 3:15 PM CDT) Specimen Narrative Performed At FINAL REPORT [facility] Renal ultrasound dated 11/10/2018 Comment:Real-time transabdominal renal ultrasound was performed. Right kidney measures 9.2 x 4.5 x 4.5 cm.Left kidney measures 8.8 x 4.1 x 5.6 cm.Right renal cortex measures 0.9 cm.Left renal cortex measures 1.1 cm. Echogenicity of both renal parenchyma is normal. No hydronephrosis, solid or cystic mass seen. The urinary bladder measures 9 cc. Doppler ultrasound demonstrates patent main renal artery and vein bilaterally. Impression:Unremarkable renal ultrasound. Signed: Nafisa Curtis MD Report Verified Date/Time:11/10/2018 15:47:14 Reading Location: [facility] [id number] Ortho Consult Reading Room Procedure Note Interface, External Ris In - 11/10/2018 3:49 PM CDT FINAL REPORT Renal ultrasound dated 11/10/2018 Comment: Real-time transabdominal renal ultrasound was performed. Right kidney measures 9.2 x 4.5 x 4.5 cm. Left kidney measures 8.8 x 4.1 x 5.6 cm. Right renal cortex measures 0.9 cm. Left renal cortex measures 1.1 cm. Echogenicity of both renal parenchyma is normal. No hydronephrosis, solid or cystic mass seen. The urinary bladder measures 9 cc. Doppler ultrasound demonstrates patent main renal artery and vein bilaterally. Impression: Unremarkable renal ultrasound. Signed: Nafisa Curtis MD Report Verified Date/Time: 11/10/2018 15:47:14 Reading Location: [facility] [id number] Ortho Consult Reading Room Performing Organization Address City/State/Zipcode Phone Number [employer] 2D Echo W/Doppler(CW/PW/Color) (11/10/2018 10:36 AM CDT) Ejection Fraction [facility] Specimen Narrative Performed At Transthoracic Echocardiography Report (TTE) [facility] Demographics Patient Name Saturnino RAHMAN of Study 11/10/2018 [place]NA [id number] GenderMale Visit Number [id number] Unknown [id number] Room Number 1127 Number Date of Birth1945Referring Physician MARLYN ELISE Age73 year(s)Regulatory Administrator Nadege Nation BRENDA InterpretingJose Physician RERE Meyer Procedure Type of Study TTE procedure:2DECHO W DOPPLER(CW/PW/COLOR) (Routine) Indications:Initial evaluation of valvular or structural heart disease. Clinical History Former smoker, CAD, ICMP, Acute on chronic CHF HGB 8.4 HCT 26.7 % Height: 64 inches Weight: 65.77 kg (145 lbs) BSA: 1.71 m^2 BMI: 24.89 kg/m^2 HR: 67 bpm BP: 106/53 mmHg Summary The left ventricle is chamber size (by vol index) is mildly enlarged (male - LVED 75-89ml/m2). Mild concentric LV hypertrophy. The following segment(s) appear akinetic: basal inferior . The other segments are mildly hypokinetic. LVEF by York's method of disk assessment is moderately reduced (35-39%) . Degree of diastolic dysfunction (LAP assessment) is inconclusive due to arrhythmia . Estimated peak systolic PA pressure is 40-45 mmHg . Signature Findings Technical Quality: Good visualization Left Ventricle The left ventricle is chamber size (by vol index) is mildly enlarged (male - LVED 75-89ml/m2). Mi ld concentric LV hypertrophy. Th e following segment(s) appear akinetic: basal in ferior . Th e other segments are mildly hypokinetic. LV EF by York's method of disk assessment is mo derately reduced (35-39%) . De gree of diastolic dysfunction (LAP assessment) is in conclusive due to arrhythmia . Left AtriumLA size is severely enlarged (>48 ml/m2) . Right VentricleRV chamber size is normal . Gl obal RV systolic function is normal . Right Atrium RA size is mildly dilated. Aortic Valve Mild AoV cusp thickening. Th ere is mild aortic regurgitation. Mitral Valve Mild MV leaflet thickening. Tr sadie mitral regurgitation. Tricuspid ValveTV structure is normal. A trace of tricuspid regurgitation. Es timated peak systolic PA pressure is 40-45 mmHg . Pulmonic Valve Normal PV structure appears normal by available vi ews. A trace of pulmonary regurgitation. AortaAortic root size (SInus of Valsalva diameter) is mi ldly dilated . PericardiumNo pericardial effusion is visualized. IVC/SVC/PA/PV/PleuralThe estimated RA pressure by IVC dynamics 5-10mmHg . Chambers/Structures Left Atrium LA Dimension: 4.26 cmLA Area: 28.16 cm^2 LA Volume: 109.11 ml LA Vol. Index: 64 ml/m^2 Left Ventricle LVIDd: 5.82 cm LVEDV:166.56 ml LVIDs: 4.45 cm LV Septum Diastolic: 1.4 cm LV PW Diastolic: 1.19 cm LV FS: 23.5 % LVEDV York's:142.07 ml LVESV York's:85.55 ml LVEDVI: 83 ml/m^2 LVEF York's: 39.8 % LVESVI: 50 ml/m^2 LVOT Diameter: 2.2 cm Right Ventricle RVOT VTI: 11.21 cm Aorta Ao Root S of Sandra.: 3.76 cm Ascending Aorta: 3.4 cm Doppler/Quantitative Measurements Mitral Valve MV Peak E-Wave: 1.14 m/s Peak Gradient: 5.18 mmHg Deceleration Time: 103.7 msec MV Bharathi. Peak: Aortic Valve Peak Velocity: 1.74 m/sMean Velocity: 1.1 m/s Peak Gradient: 12.14 mmHgMean Gradient: 5.76 mmHg AV Area (continuity): 2.01 cm^2 AV VTI: 33.57 cm AV DVI: 0.53 LVOT Peak Velocity: 0.87 m/s Peak Gradient: 3.04 mmHg Mean Velocity: 0.56 m/s Mean Gradient: 1.5 mmHg LVOT Diameter: 2.2 cm LVOT VTI: 17.75 cm LVOT Area: 3.8 cm^2 LVOT SV:67.44 ml LVOT CO: 4.52 l/min LVOT CI: 2.64 l/min/m^2 Tricuspid Valve TR Velocity: 2.77 m/s TR Gradient: 30.67 mmHg Procedure Note Interface, External Ris In - 11/11/2018 8:30 AM CDT Transthoracic Echocardiography Report (TTE) Demographics Patient Name SHA RAHMAN Date of Study 11/10/2018 [place] Gender Male Visit Number [id number] Race Unknown Room Number 1127 Number Date of 1945 Referring Physician MARLYN ELISE Age 73 year(s) Regulatory Administrator Nadege Nation RDCS Interpreting Physician RERE Cantrell Procedure Type of Study TTE procedure:2DECHO W DOPPLER(CW/PW/COLOR) (Routine) Indications:Initial evaluation of valvular or structural heart disease. Clinical History Former smoker, CAD, ICMP, Acute on chronic CHF HGB 8.4 HCT 26.7 % Height: 64 inches Weight: 65.77 kg (145 lbs) BSA: 1.71 m^2 BMI: 24.89 kg/m^2 HR: 67 bpm BP: 106/53 mmHg Summary The left ventricle is chamber size (by vol index) is mildly enlarged (male - LVED 75-89ml/m2). Mild concentric LV hypertrophy. The following segment(s) appear akinetic: basal inferior . The other segments are mildly hypokinetic. LVEF by York's method of disk assessment is moderately reduced (35-39%) . Degree of diastolic dysfunction (LAP assessment) is inconclusive due to arrhythmia . Estimated peak systolic PA pressure is 40-45 mmHg . Signature Findings Technical Quality: Good visualization Left Ventricle The left ventricle is chamber size (by vol index) is mildly enlarged (male - LVED 75-89ml/m2). Mild concentric LV hypertrophy. The following segment(s) appear akinetic: basal inferior . The other segments are mildly hypokinetic. LVEF by York's method of disk assessment is moderately reduced (35-39%) . Degree of diastolic dysfunction (LAP assessment) is inconclusive due to arrhythmia . Left Atrium LA size is severely enlarged (>48 ml/m2) . Right Ventricle RV chamber size is normal . Global RV systolic function is normal . Right Atrium RA size is mildly dilated. Aortic Valve Mild AoV cusp thickening. There is mild aortic regurgitation. Mitral Valve Mild MV leaflet thickening. Trace mitral regurgitation. Tricuspid Valve TV structure is normal. A trace of tricuspid regurgitation. Estimated peak systolic PA pressure is 40-45 mmHg . Pulmonic Valve Normal PV structure appears normal by available views. A trace of pulmonary regurgitation. Aorta Aortic root size (SInus of Valsalva diameter) is mildly dilated . Pericardium No pericardial effusion is visualized. IVC/SVC/PA/PV/Pleural The estimated RA pressure by IVC dynamics 5-10mmHg . Chambers/Structures Left Atrium LA Dimension: 4.26 cm LA Area: 28.16 cm^2 LA Volume: 109.11 ml LA Vol. Index: 64 ml/m^2 Left Ventricle LVIDd: 5.82 cm LVEDV:166.56 ml LVIDs: 4.45 cm LV Septum Diastolic: 1.4 cm LV PW Diastolic: 1.19 cm LV FS: 23.5 % LVEDV York's:142.07 ml LVESV York's:85.55 ml LVEDVI: 83 ml/m^2 LVEF York's: 39.8 % LVESVI: 50 ml/m^2 LVOT Diameter: 2.2 cm Right Ventricle RVOT VTI: 11.21 cm Aorta Ao Root S of Sandra.: 3.76 cm Ascending Aorta: 3.4 cm Doppler/Quantitative Measurements Mitral Valve MV Peak E-Wave: 1.14 m/s Peak Gradient: 5.18 mmHg Deceleration Time: 103.7 msec MV Bharathi. Peak: Aortic Valve Peak Velocity: 1.74 m/s Mean Velocity: 1.1 m/s Peak Gradient: 12.14 mmHg Mean Gradient: 5.76 mmHg AV Area (continuity): 2.01 cm^2 AV VTI: 33.57 cm AV DVI: 0.53 LVOT Peak Velocity: 0.87 m/s Peak Gradient: 3.04 mmHg Mean Velocity: 0.56 m/s Mean Gradient: 1.5 mmHg LVOT Diameter: 2.2 cm LVOT VTI: 17.75 cm LVOT Area: 3.8 cm^2 LVOT SV:67.44 ml LVOT CO: 4.52 l/min LVOT CI: 2.64 l/min/m^2 Tricuspid Valve TR Velocity: 2.77 m/s TR Gradient: 30.67 mmHg Performing Organization Address City/State/Zipcode Phone Number [facility] Iron, TIBC, % sat. (without ferritin) (11/10/2018 5:46 AM CDT) Iron 22.0 (L) 40.0 - 160.0 ug/dL [facility] TIBC 244 (L) 250 - 450 ug/dL [facility] Iron % Saturation 9 (L) 20 - 55 % [facility] Specimen Blood Performing Organization Address City/[facility] Phone Number [address] [address] [phone] [place] Ferritin (11/10/2018 5:46 AM CDT) Ferritin 370 (H) 5 - 275 ng/mL [facility] Specimen Blood Performing Organization Address [facility] Phone Number [address] [address] [place] Urea Nitrogen, random urine (11/09/2018 10:50 PM CDT) Urea Nitrogen, Ur 347 mg/dL [facility] Specimen Urine Narrative Performed At Reference Range: No Normals [facility] Performing Organization Address [facility] Phone Number [address] [address] [phone] [place] Sodium, random urine (11/09/2018 10:50 PM CDT) Sodium Urine 54 meq/L [facility] Specimen Urine Narrative Performed At Reference Range: No Normals [facility] Performing Organization Address [facility] Phone Number [address] [address] [place] Creatinine, random urine (11/09/2018 10:50 PM CDT) Creatinine, Ur 72.6 mg/dL [facility] Specimen Urine Narrative Performed At Reference Range: No Normals [facility] Performing Organization Address [facility]/Zipcode Phone Number [address] [address] CENTER after 11/18/2017 Insurance Payer Benefit Plan / Group Subscriber ID Type Phone Address [employer] - MEDICARE UNITED MEDICARE HMO xxxxxxxxx [employer] MEDICAID - MEDICAID [employer] xxxxxxxxx Advance Directives For more information, please contact:[place] [phone] [place] [phone] Code Status Date Activated Date Inactivated Comments Full Code 11/09/2018 8:28 PM 11/19/2018 4:25 PM This code status was determined by: Patient
--- OUTSIDE RECORDS SUMMARY | 2018-11-19 23:25 | XMS REPORT ---
:1945 [facility] [address] [place] [id number] Care Team Providers Name Role Phone MARLYN LAM Unavailable Unavailable Problems This patient has no known problems. Allergies, Adverse Reactions, Alerts This patient has no known allergies or adverse reactions. Medications This patient has no known medications. Results Test Description Test Time Test Comments Text Results Atomic Results Result Comments RAD, CHEST, 1 2018-11-19 Reason for FINAL REPORT PATIENT VIEW, NON DEPT 08:23:00 exam:->pneumoniaShould this ID: [id number] be performed at the INDICATION: pneumonia bedside?->Yes TECHNIQUE: Chest radiograph, single view, portable technique. FINDINGS / IMPRESSION: Patient is status post recent median sternotomy and presumably cardiac surgery.Engorged central pulmonary veins again demonstrated without overt edema or large pleural effusion.Stable enlargement of the heart shadow. No apical cap or pneumothorax. Signed: Federico Alvarez MDReport Verified Date/Time: 11/19/2018 08:23:56 Reading Location: [facility] Diagnostic Imaging Reading Room - [place] [address] [place] 2018-11-18 07:25:00 Test Item Value Reference Range Comments PHOSPHORUS (BEAKER) (test vtoo=038) 2.7 mg/dL 2.3-4.7 [id number] 07:25:00 Test Item Value Reference Range Comments MAGNESIUM (BEAKER) (test zkum=303) 2.2 mg/dL 1.6-2.6 BASIC METABOLIC [id number] 07:25:00 Test Item Value Reference Range Comments SODIUM (BEAKER) (test 135 meq/L 136-145 qocz=987) POTASSIUM (BEAKER) (test 3.9 meq/L 3.5-5.1 owyx=026) CHLORIDE (BEAKER) (test 108 meq/L 98-107 fmtz=198) CO2 (BEAKER) (test 20 meq/L 22-29 unda=515) BLOOD UREA NITROGEN 27 mg/dL 7-21 (BEAKER) (test pafn=589) CREATININE (BEAKER) (test 1.36 mg/dL 0.57-1.25 liex=269) GLUCOSE RANDOM (BEAKER) 116 mg/dL 70-105 (test ykcg=941) CALCIUM (BEAKER) (test 9.6 mg/dL 8.4-10.2 jqos=879) EGFR (BEAKER) (test 51 mL/min/1.73 sq m ESTIMATED GFR IS NOT bihy=9829) ACCURATE CREATININE CLEARANCE IN PREDICTING GLOMERULAR FILTRATION RATE. ESTIMATED GFR IS NOT APPLICABLE FOR DIALYSIS PATIENTS. CBC (HEMOGRAM ONLY)2018-11-18 06:43:00 Test Item Value Reference Range Comments WHITE BLOOD CELL COUNT (BEAKER) (test gqmf=625) 3.5 K/ L 3.5-10.5 RED BLOOD CELL COUNT (BEAKER) (test rksm=357) 3.36 M/ L 4.63-6.08 HEMOGLOBIN (BEAKER) (test hinn=382) 9.5 GM/DL 13.7-17.5 HEMATOCRIT (BEAKER) (test soqt=398) 30.2 % 40.1-51.0 MEAN CORPUSCULAR VOLUME (BEAKER) (test usyh=153) 89.9 fL 79.0-92.2 MEAN CORPUSCULAR HEMOGLOBIN (BEAKER) (test 28.3 pg 25.7-32.2 bdvd=793) MEAN CORPUSCULAR HEMOGLOBIN CONC (BEAKER) (test 31.5 GM/DL 32.3-36.5 kuoe=677) RED CELL DISTRIBUTION WIDTH (BEAKER) (test 15.6 % 11.6-14.4 wtsf=468) PLATELET COUNT (BEAKER) (test upon=973) 102 K/CU MM 150-450 MEAN PLATELET VOLUME (BEAKER) (test cknr=146) 10.7 fL 9.4-12.4 NUCLEATED RED BLOOD CELLS (BEAKER) (test 0 /100 WBC 0-0 efsy=151) [id number] 07:31:00 Test Item Value Reference Range Comments MAGNESIUM (BEAKER) (test 1.9 mg/dL 1.6-2.6 Specimen slightly hemolyzed nyqa=236) [id number] 07:31:00 Test Item Value Reference Range Comments PHOSPHORUS (BEAKER) (test 2.2 mg/dL 2.3-4.7 Specimen slightly hemolyzed rwfh=202) BASIC METABOLIC [id number] 07:31:00 Test Item Value Reference Range Comments SODIUM (BEAKER) (test 137 meq/L 136-145 djqi=152) POTASSIUM (BEAKER) (test 3.5 meq/L 3.5-5.1 Specimen slightly nhqs=728) hemolyzed CHLORIDE (BEAKER) (test 109 meq/L 98-107 xodc=928) CO2 (BEAKER) (test 20 meq/L 22-29 azlz=361) BLOOD UREA NITROGEN 28 mg/dL 7-21 (BEAKER) (test pypq=846) CREATININE (BEAKER) (test 1.40 mg/dL 0.57-1.25 Specimen slightly xmph=884) hemolyzed GLUCOSE RANDOM (BEAKER) 122 mg/dL 70-105 (test kgtr=677) CALCIUM (BEAKER) (test 9.3 mg/dL 8.4-10.2 vukx=476) EGFR (BEAKER) (test 50 mL/min/1.73 sq m ESTIMATED GFR IS NOT zscg=5687) ACCURATE CREATININE CLEARANCE IN PREDICTING GLOMERULAR FILTRATION RATE. ESTIMATED GFR IS NOT APPLICABLE FOR DIALYSIS PATIENTS. CBC (HEMOGRAM ONLY)2018-11-17 06:21:00 Test Item Value Reference Range Comments WHITE BLOOD CELL COUNT (BEAKER) (test vpff=094) 2.8 K/ L 3.5-10.5 RED BLOOD CELL COUNT (BEAKER) (test hzji=775) 3.16 M/ L 4.63-6.08 HEMOGLOBIN (BEAKER) (test swii=920) 9.1 GM/DL 13.7-17.5 HEMATOCRIT (BEAKER) (test nper=915) 28.4 % 40.1-51.0 MEAN CORPUSCULAR VOLUME (BEAKER) (test xuau=214) 89.9 fL 79.0-92.2 MEAN CORPUSCULAR HEMOGLOBIN (BEAKER) (test 28.8 pg 25.7-32.2 wygu=589) MEAN CORPUSCULAR HEMOGLOBIN CONC (BEAKER) (test 32.0 GM/DL 32.3-36.5 aqwf=626) RED CELL DISTRIBUTION WIDTH (BEAKER) (test 15.8 % 11.6-14.4 qakj=245) PLATELET COUNT (BEAKER) (test jvrn=219) 101 K/CU MM 150-450 MEAN PLATELET VOLUME (BEAKER) (test hthe=636) 11.3 fL 9.4-12.4 NUCLEATED RED BLOOD CELLS (BEAKER) (test 0 /100 WBC 0-0 sgcb=399) RAD, CHEST, 1 VIEW, NON [id number] 08:49:00Reason for exam:->pleural effusionShould this be performed at the bedside?->YesFINAL REPORT CLINICAL HISTORY: pleural effusion TECHNIQUE: 1 view of the chest. COMPARISON: 11/15/2018 IMPRESSION: Pulmonary vascular congestion is again seen with slightly decreased diffuse bilateral airspace opacities. Small bilateral pleural effusions also appear decreased. The cardiomediastinal silhouette is magnified by technique with sternotomy wires. Signed: Ene Forman MDReport Verified Date/Time: 11/16/2018 08:49:16 Reading Location: [address] Neuro Reading Room 08 :49 [id number] 05:52:00 Test Item Value Reference Range Comments PHOSPHORUS (BEAKER) (test yqhv=791) 2.4 mg/dL 2.3-4.7 [id number] 05:52:00 Test Item Value Reference Range Comments MAGNESIUM (BEAKER) (test hoiz=924) 2.1 mg/dL 1.6-2.6 BASIC METABOLIC [id number] 05:52:00 Test Item Value Reference Range Comments SODIUM (BEAKER) (test 137 meq/L 136-145 vqic=635) POTASSIUM (BEAKER) (test 3.7 meq/L 3.5-5.1 fgtu=953) CHLORIDE (BEAKER) (test 110 meq/L 98-107 dflj=163) CO2 (BEAKER) (test 18 meq/L 22-29 sftp=512) BLOOD UREA NITROGEN 33 mg/dL 7-21 (BEAKER) (test moap=779) CREATININE (BEAKER) (test 1.63 mg/dL 0.57-1.25 uulq=591) GLUCOSE RANDOM (BEAKER) 100 mg/dL 70-105 (test jhcu=222) CALCIUM (BEAKER) (test 9.5 mg/dL 8.4-10.2 ftgp=864) EGFR (BEAKER) (test 42 mL/min/1.73 sq m ESTIMATED GFR IS NOT skfj=7108) ACCURATE CREATININE CLEARANCE IN PREDICTING GLOMERULAR FILTRATION RATE. ESTIMATED GFR IS NOT APPLICABLE FOR DIALYSIS PATIENTS. CBC (HEMOGRAM ONLY)2018-11-16 04:34:00 Test Item Value Reference Range Comments WHITE BLOOD CELL COUNT (BEAKER) (test kybp=381) 4.6 K/ L 3.5-10.5 RED BLOOD CELL COUNT (BEAKER) (test qsjs=055) 3.37 M/ L 4.63-6.08 HEMOGLOBIN (BEAKER) (test rggz=894) 9.6 GM/DL 13.7-17.5 HEMATOCRIT (BEAKER) (test cyhc=145) 30.2 % 40.1-51.0 MEAN CORPUSCULAR VOLUME (BEAKER) (test llef=846) 89.6 fL 79.0-92.2 MEAN CORPUSCULAR HEMOGLOBIN (BEAKER) (test 28.5 pg 25.7-32.2 enxt=683) MEAN CORPUSCULAR HEMOGLOBIN CONC (BEAKER) (test 31.8 GM/DL 32.3-36.5 ssot=411) RED CELL DISTRIBUTION WIDTH (BEAKER) (test 15.9 % 11.6-14.4 hhme=167) PLATELET COUNT (BEAKER) (test dhvf=264) 78 K/CU MM 150-450 MEAN PLATELET VOLUME (BEAKER) (test rpwg=726) 10.7 fL 9.4-12.4 NUCLEATED RED BLOOD CELLS (BEAKER) (test 0 /100 WBC 0-0 ejbc=243) BRONCHIAL CULTURE + GRAM [id number] 12:41:00 Test Item Value Reference Range Comments CULTURE (BEAKER) (test PSEUDOMONAS 1+ Pseudomonas emhx=9341) AERUGINOSA aeruginosa Amikacin (test code=1) Susceptible 0-16 , Resistant <0 or >16 Aztreonam (test Susceptible 0-8 , code=32) Resistant <0 or >8 Cefepime (test code=51) Susceptible 0-8 , Resistant <0 or >8 Ceftazidime (test Susceptible 0-8 , code=27) Resistant <0 or >8 Ciprofloxacin (test Susceptible 0-0.5 , code=7) Resistant <0 or >.5 Gentamicin (test Susceptible 0-4 , code=18) Resistant <0 or >4 Levofloxacin (test Susceptible 0-1 , code=22) Resistant <0 or >1 Meropenem (test Susceptible 0-2 , code=34) Resistant <0 or >2 Piperacillin (test Susceptible 0-16 , code=24) Resistant <0 or >16 Piperacillin + Susceptible 0-16 , Tazobactam (test Resistant <0 or >16 code=29) Tobramycin (test Susceptible 0-4 , code=25) Resistant <0 or >4 GRAM STAIN RESULT 2+ White blood cells (BEAKER) (test seen icle=7525) GRAM STAIN RESULT No organisms seen (BEAKER) (test yvnl=617261) 2+ Normal respiratory brigid presentPOCT-GLUCOSE [id number] 08:58:00 Test Item Value Reference Range Comments POC-GLUCOSE METER (BEAKER) 123 mg/dL 70-110 TESTED AT [facility] [address] [facility] (test xrvv=7582) [facility] [address] RAD, CHEST, 1 VIEW, NON [id number] 08:58:00while patient is intubated or has chest tubes.Reason for exam:->Status post CV SurgeryShould thisbe performed at the bedside?->YesFINAL REPORT RAD, CHEST , 1 VIEW, NON DEPT INDICATION: Status post CV Surgery COMPARISON: Prior day's exam FINDINGS: Portable frontal view of the chest. IMPRESSION: Support Lines : Right IJ catheter has been removed. Lungs and pleura: Right effusion and potential underlying airspace disease are slightly increased in the interim No pneumothorax.Heart and mediastinum: Stable contours. Additional findings: None. Signed: Jazmin Jimenez Verified Date/Time: 11/15/2018 08:58:00 Reading Location: [facility] Radiology Reading Room [id number] 05:10: 00 Test Item Value Reference Range Comments PHOSPHORUS (BEAKER) (test ofpj=010) 3.1 mg/dL 2.3-4.7 [id number] 05:10:00 Test Item Value Reference Range Comments MAGNESIUM (BEAKER) (test nbzb=650) 2.5 mg/dL 1.6-2.6 BASIC METABOLIC [id number] 05:10:00 Test Item Value Reference Range Comments SODIUM (BEAKER) (test 136 meq/L 136-145 qzaa=960) POTASSIUM (BEAKER) (test 3.6 meq/L 3.5-5.1 wrud=620) CHLORIDE (BEAKER) (test 110 meq/L 98-107 ybxk=595) CO2 (BEAKER) (test 19 meq/L 22-29 duaw=511) BLOOD UREA NITROGEN 34 mg/dL 7-21 (BEAKER) (test ppkp=450) CREATININE (BEAKER) (test 1.79 mg/dL 0.57-1.25 zrjb=429) GLUCOSE RANDOM (BEAKER) 101 mg/dL 70-105 (test ihib=720) CALCIUM (BEAKER) (test 9.2 mg/dL 8.4-10.2 rdov=935) EGFR (BEAKER) (test 37 mL/min/1.73 sq m ESTIMATED GFR IS NOT lyyj=3425) ACCURATE CREATININE CLEARANCE IN PREDICTING GLOMERULAR FILTRATION RATE. ESTIMATED GFR IS NOT APPLICABLE FOR DIALYSIS PATIENTS. CBC (HEMOGRAM ONLY)2018-11-15 04:59:00 Test Item Value Reference Range Comments WHITE BLOOD CELL COUNT (BEAKER) (test hcdt=519) 4.4 K/ L 3.5-10.5 RED BLOOD CELL COUNT (BEAKER) (test viux=329) 3.42 M/ L 4.63-6.08 HEMOGLOBIN (BEAKER) (test zswz=806) 9.7 GM/DL 13.7-17.5 HEMATOCRIT (BEAKER) (test fmdx=333) 30.9 % 40.1-51.0 MEAN CORPUSCULAR VOLUME (BEAKER) (test iahl=951) 90.4 fL 79.0-92.2 MEAN CORPUSCULAR HEMOGLOBIN (BEAKER) (test 28.4 pg 25.7-32.2 hcjk=373) MEAN CORPUSCULAR HEMOGLOBIN CONC (BEAKER) (test 31.4 GM/DL 32.3-36.5 tqwi=075) RED CELL DISTRIBUTION WIDTH (BEAKER) (test 16.0 % 11.6-14.4 essd=265) PLATELET COUNT (BEAKER) (test bfix=856) 66 K/CU MM 150-450 MEAN PLATELET VOLUME (BEAKER) (test uvdj=269) 11.1 fL 9.4-12.4 NUCLEATED RED BLOOD CELLS (BEAKER) (test 0 /100 WBC 0-0 wplt=699) CALCIUM, [id number] 04:57:00 Test Item Value Reference Range Comments CALCIUM IONIZED (BEAKER) (test iicx=041) 1.26 mmol/L 1.12-1.27 PH, BLOOD (BEAKER) (test eajr=8438) 7.40 POCT-GLUCOSE [id number] 17:04:00 Test Item Value Reference Range Comments POC-GLUCOSE METER ([facility]) 143 mg/dL 70-110 TESTED AT [address] (test rtzq=7422) [facility] [address] HEPARIN [id number] 14:37:00 Test Item Value Reference Range Comments HEPARIN ANTIBODY (BEAKER) (test hthj=045) Negative Negative HEPARIN ANTIBODY OD (BEAKER) (test wmwl=7584) 0.172 <0.400 4T TOTAL SCORE ([facility]) (test rxmz=4575) 5 Probability of HIT based on scoring system: 6-8=High probability; 4-5= intermediate probability; 0-3=low probabilityPOCT-GLUCOSE [id number] 11:50: 00 Test Item Value Reference Range Comments POC-GLUCOSE METER ([facility]) 145 mg/dL 70-110 TESTED AT [address] (test hcuc=9470) [facility] [address] [id number] 11:00:00 Test Item Value Reference Range Comments PARTIAL THROMBOPLASTIN TIME (BEAKER) (test 22.6 seconds 22.5-36.0 gmor=733) CBC (HEMOGRAM ONLY)2018-11-14 10:47:00 Test Item Value Reference Range Comments WHITE BLOOD CELL COUNT (BEAKER) (test yncj=245) 4.2 K/ L 3.5-10.5 RED BLOOD CELL COUNT (BEAKER) (test ntdo=376) 3.03 M/ L 4.63-6.08 HEMOGLOBIN (BEAKER) (test dhba=026) 9.1 GM/DL 13.7-17.5 HEMATOCRIT (BEAKER) (test ssew=743) 27.8 % 40.1-51.0 MEAN CORPUSCULAR VOLUME (BEAKER) (test znbx=468) 91.7 fL 79.0-92.2 MEAN CORPUSCULAR HEMOGLOBIN (BEAKER) (test 30.0 pg 25.7-32.2 kosh=413) MEAN CORPUSCULAR HEMOGLOBIN CONC (BEAKER) (test 32.7 GM/DL 32.3-36.5 jnnt=404) RED CELL DISTRIBUTION WIDTH (BEAKER) (test 16.4 % 11.6-14.4 rezr=228) PLATELET COUNT (BEAKER) (test qtlx=007) 60 K/CU MM 150-450 MEAN PLATELET VOLUME (BEAKER) (test ozjy=764) 10.7 fL 9.4-12.4 NUCLEATED RED BLOOD CELLS (BEAKER) (test 0 /100 WBC 0-0 epdp=469) RAD, CHEST, 1 VIEW, NON [id number] 07:09:00while patient is intubated or has chest tubes.Reason for exam:->Status post CV SurgeryShould thisbe performed at the bedside?->YesFINAL REPORT RAD, CHEST , 1 VIEW, NON DEPT INDICATION: Status post CV Surgery COMPARISON: Prior day's exam FINDINGS: Portable frontal view of the chest. IMPRESSION: Support Lines : Quinton-Angel catheter, endotracheal and enteric tubes have been removed. Remaining support hardware is stable. Lungs and pleura: Interstitial congestive changes are stable compared to the prior examination. No discrete consolidation. Trace bilateral effusions laterally. No pneumothorax.Heart and mediastinum: Stable contours. Stable surgical changes.Additional findings: None. Signed: JR Jefferson Robert MDReport Verified Date/Time: 11/14/2018 07:09:00 Reading Location: [facility] Radiology Reading Room [id number] 04:01:00 Test Item Value Reference Range Comments PHOSPHORUS (BEAKER) (test fbji=677) 3.7 mg/dL 2.3-4.7 [id number] 04:01:00 Test Item Value Reference Range Comments MAGNESIUM (BEAKER) (test ffbo=486) 1.8 mg/dL 1.6-2.6 BASIC METABOLIC [id number] 04:01:00 Test Item Value Reference Range Comments SODIUM (BEAKER) (test 142 meq/L 136-145 qwhn=205) POTASSIUM (BEAKER) (test 3.8 meq/L 3.5-5.1 pkcy=637) CHLORIDE (BEAKER) (test 116 meq/L 98-107 gqxo=063) CO2 (BEAKER) (test 17 meq/L 22-29 btbr=196) BLOOD UREA NITROGEN 30 mg/dL 7-21 (BEAKER) (test skad=561) CREATININE (BEAKER) (test 1.83 mg/dL 0.57-1.25 edwa=528) GLUCOSE RANDOM (BEAKER) 130 mg/dL 70-105 (test hqvg=054) CALCIUM (BEAKER) (test 8.5 mg/dL 8.4-10.2 keud=740) EGFR (BEAKER) (test 36 mL/min/1.73 sq m ESTIMATED GFR IS NOT pllw=3629) ACCURATE CREATININE CLEARANCE IN PREDICTING GLOMERULAR FILTRATION RATE. ESTIMATED GFR IS NOT APPLICABLE FOR DIALYSIS PATIENTS. LACTIC ACID, [id number] 03:56:00 Test Item Value Reference Range Comments LACTATE BLOOD ARTERIAL (2) (BEAKER) (test 1.3 mmol/L 0.5-2.2 xoro=0210) OXYGEN SATURATION, [id number] 03:55:00 Test Item Value Reference Range Comments O2 SATURATION (MEASURED) (BEAKER) (test fvbj=6929) 69.7 % CALCIUM, [id number] 03:55:00 Test Item Value Reference Range Comments CALCIUM IONIZED (BEAKER) (test xrwo=726) 1.21 mmol/L 1.12-1.27 PH, BLOOD (BEAKER) (test ylou=8314) 7.37 CBC (HEMOGRAM ONLY)2018-11-14 03:46:00 Test Item Value Reference Range Comments WHITE BLOOD CELL COUNT (BEAKER) (test hknm=417) 4.5 K/ L 3.5-10.5 RED BLOOD CELL COUNT (BEAKER) (test kguo=595) 3.43 M/ L 4.63-6.08 HEMOGLOBIN (BEAKER) (test zwvg=337) 9.7 GM/DL 13.7-17.5 HEMATOCRIT (BEAKER) (test kbdz=190) 31.3 % 40.1-51.0 MEAN CORPUSCULAR VOLUME (BEAKER) (test hbtw=563) 91.3 fL 79.0-92.2 MEAN CORPUSCULAR HEMOGLOBIN (BEAKER) (test 28.3 pg 25.7-32.2 lbza=444) MEAN CORPUSCULAR HEMOGLOBIN CONC (BEAKER) (test 31.0 GM/DL 32.3-36.5 wjww=525) RED CELL DISTRIBUTION WIDTH (BEAKER) (test 16.5 % 11.6-14.4 vedo=983) PLATELET COUNT (BEAKER) (test bwht=175) 51 K/CU MM 150-450 MEAN PLATELET VOLUME (BEAKER) (test wcyj=683) 10.8 fL 9.4-12.4 NUCLEATED RED BLOOD CELLS (BEAKER) (test 0 /100 WBC 0-0 euyr=011) HEMOGLOBIN AND [id number] 21:08:00 Test Item Value Reference Range Comments HEMOGLOBIN (BEAKER) (test ocfp=159) 9.1 GM/DL 13.7-17.5 HEMATOCRIT (BEAKER) (test prsm=496) 27.6 % 40.1-51.0 CALCIUM, [id number] 21:03:00 Test Item Value Reference Range Comments CALCIUM IONIZED (BEAKER) (test cesv=082) 1.18 mmol/L 1.12-1.27 PH, BLOOD (BEAKER) (test xbyv=5122) 7.38 POCT-GLUCOSE [id number] 19:00:00 Test Item Value Reference Range Comments POC-GLUCOSE METER (BEAKER) 120 mg/dL 70-110 TESTED AT [address] (test gmww=8514) [facility] [address] POCT-GLUCOSE [id number] 17:06:00 Test Item Value Reference Range Comments POC-GLUCOSE METER (BEAKER) 155 mg/dL 70-110 TESTED AT [address] (test xixq=5409) [facility] [address] [id number] 16:54:00 Test Item Value Reference Range Comments HEMOGLOBIN (BEAKER) (test dkyq=850) 9.6 GM/DL 13.7-17.5 For hypotensionGLUCOSE-STAT [id number] 13:14:00 Test Item Value Reference Range Comments GLUCOSE RANDOM (BEAKER) (test yrrn=251) 148 mg/dL 70-110 HGB/HCT (H&H) - STAT [id number] 13:14:00 Test Item Value Reference Range Comments HEMOGLOBIN (BEAKER) (test qqhl=171) 9.5 g/dL 13.0-16.8 HEMATOCRIT (BEAKER) (test bckj=418) 28.0 % 40.0-50.0 SODIUM NA-STAT [id number] 12:49:00 Test Item Value Reference Range Comments SODIUM (BEAKER) (test nrtf=871) 138 meq/L 135-148 POTASSIUM-STAT [id number] 12:49:00 Test Item Value Reference Range Comments POTASSIUM (BEAKER) (test uebr=916) 4.0 meq/L 3.6-5.5 OXYGEN SATURATION, [id number] 12:48:00 Test Item Value Reference Range Comments O2 SATURATION (MEASURED) (BEAKER) (test vquq=1899) 74.4 % For occult hypoperfusionRAD, CHEST, 1 VIEW, NON [id number] 12:31:00while patient is intubated or has chest tubes.Reason for exam:->Status post CV SurgeryShould thisbe performed at the bedside?->YesFINAL REPORT RAD, CHEST, 1 VIEW, NON DEPT INDICATION: Status post CV Surgery COMPARISON: Prior day's exam FINDINGS: Portable frontal view of the chest. IMPRESSION: Support Lines: Quinton-Angel catheter tip overlies the pulmonary outflow tract. NG tube descends below the diaphragm. ET tube tip is 3 cm superior to the jd. Lungs and pleura: Bilateral interstitial opacities and subsegmental atelectasis are unchanged No pneumothorax.Heart and mediastinum: Stable contours. Additional findings: None. Signed: Jazmin Jimenezort Verified Date/Time: 11/13/2018 12:31:05 Reading Location: [facility] Radiology Reading Room CBC (HEMOGRAM ONLY)2018-11-13 10:41:00 Test Item Value Reference Range Comments WHITE BLOOD CELL COUNT (BEAKER) (test 3.3 K/ L 3.5-10.5 wvft=203) RED BLOOD CELL COUNT (BEAKER) (test 2.59 M/ L 4.63-6.08 vkcx=328) HEMOGLOBIN (BEAKER) (test saxk=725) 7.8 GM/DL 13.7-17.5 HEMATOCRIT (BEAKER) (test dgbx=238) 24.1 % 40.1-51.0 MEAN CORPUSCULAR VOLUME (BEAKER) (test 93.1 fL 79.0-92.2 POST TRANSFUSION mmab=796) MEAN CORPUSCULAR HEMOGLOBIN (BEAKER) 30.1 pg 25.7-32.2 (test wboy=246) MEAN CORPUSCULAR HEMOGLOBIN CONC 32.4 GM/DL 32.3-36.5 (BEAKER) (test bjhj=448) RED CELL DISTRIBUTION WIDTH (BEAKER) 15.8 % 11.6-14.4 (test zgjv=980) PLATELET COUNT (BEAKER) (test gkpg=571) 60 K/CU MM 150-450 POST TRANSFUSION MEAN PLATELET VOLUME (BEAKER) (test 10.3 fL 9.4-12.4 asef=534) NUCLEATED RED BLOOD CELLS (BEAKER) (test 0 /100 WBC 0-0 euet=341) CBC (HEMOGRAM ONLY)2018-11-13 10:20:00 Test Item Value Reference Range Comments WHITE BLOOD CELL COUNT (BEAKER) (test czsm=003) 2.4 K/ L 3.5-10.5 RED BLOOD CELL COUNT (BEAKER) (test gizi=935) 1.36 M/ L 4.63-6.08 HEMOGLOBIN (BEAKER) (test lbks=209) 4.0 GM/DL 13.7-17.5 HEMATOCRIT (BEAKER) (test qrwi=156) 15.8 % 40.1-51.0 MEAN CORPUSCULAR VOLUME (BEAKER) (test qccz=868) 116.2 fL 79.0-92.2 MEAN CORPUSCULAR HEMOGLOBIN (BEAKER) (test 29.4 pg 25.7-32.2 kvou=268) MEAN CORPUSCULAR HEMOGLOBIN CONC (BEAKER) (test 25.3 GM/DL 32.3-36.5 hdhb=400) RED CELL DISTRIBUTION WIDTH (BEAKER) (test 16.6 % 11.6-14.4 ftar=854) PLATELET COUNT (BEAKER) (test ishm=361) 34 K/CU MM 150-450 MEAN PLATELET VOLUME (BEAKER) (test rcit=766) 11.1 fL 9.4-12.4 NUCLEATED RED BLOOD CELLS (BEAKER) (test 0 /100 WBC 0-0 psvu=180) POCT-GLUCOSE [id number] 10:05:00 Test Item Value Reference Range Comments POC-GLUCOSE METER (BEAKER) 124 mg/dL 70-110 TESTED AT [address] (test gxoi=2770) [facility] [id number] POCT-GLUCOSE [id number] 10:05:00 Test Item Value Reference Range Comments POC-GLUCOSE METER (BEAKER) 139 mg/dL 70-110 TESTED AT [address] (test ieno=7031) [facility] [id number] OXYGEN SATURATION, [id number] 05:42:00 Test Item Value Reference Range Comments O2 SATURATION (MEASURED) (BEAKER) (test xcom=7538) 58.2 % For occult hypoperfusionCBC W/PLT COUNT & AUTO [id number] 05:15: 00 Test Item Value Reference Range Comments WHITE BLOOD CELL COUNT (BEAKER) (test lrvc=642) 3.6 K/ L 3.5-10.5 RED BLOOD CELL COUNT (BEAKER) (test yiiw=947) 2.53 M/ L 4.63-6.08 HEMOGLOBIN (BEAKER) (test qwoo=879) 7.4 GM/DL 13.7-17.5 HEMATOCRIT (BEAKER) (test dipl=980) 23.7 % 40.1-51.0 MEAN CORPUSCULAR VOLUME (BEAKER) (test xkyj=533) 93.7 fL 79.0-92.2 MEAN CORPUSCULAR HEMOGLOBIN (BEAKER) (test 29.2 pg 25.7-32.2 njxm=232) MEAN CORPUSCULAR HEMOGLOBIN CONC (BEAKER) (test 31.2 GM/DL 32.3-36.5 jusv=969) RED CELL DISTRIBUTION WIDTH (BEAKER) (test 14.9 % 11.6-14.4 cwvl=378) PLATELET COUNT (BEAKER) (test uwbv=446) 70 K/CU MM 150-450 MEAN PLATELET VOLUME (BEAKER) (test xeyz=950) 10.6 fL 9.4-12.4 NUCLEATED RED BLOOD CELLS (BEAKER) (test 0 /100 WBC 0-0 awms=791) NEUTROPHILS RELATIVE PERCENT (BEAKER) (test 58 % cugp=383) LYMPHOCYTES RELATIVE PERCENT (BEAKER) (test 28 % opsy=277) MONOCYTES RELATIVE PERCENT (BEAKER) (test 13 % mnsf=793) EOSINOPHILS RELATIVE PERCENT (BEAKER) (test 1 % gqrb=671) BASOPHILS RELATIVE PERCENT (BEAKER) (test 1 % whoe=236) NEUTROPHILS ABSOLUTE COUNT (BEAKER) (test 2.05 K/ L 1.78-5.38 hagg=292) LYMPHOCYTES ABSOLUTE COUNT (BEAKER) (test 1.01 K/ L 1.32-3.57 fkyh=531) MONOCYTES ABSOLUTE COUNT (BEAKER) (test fcwn=255) 0.45 K/ L 0.30-0.82 EOSINOPHILS ABSOLUTE COUNT (BEAKER) (test 0.02 K/ L 0.04-0.54 ufyi=651) BASOPHILS ABSOLUTE COUNT (BEAKER) (test zunm=911) 0.02 K/ L 0.01-0.08 IMMATURE GRANULOCYTES-RELATIVE PERCENT (BEAKER) 0 % 0-1 (test fgqb=7509) [id number] 04:18:00 Test Item Value Reference Range Comments PHOSPHORUS (BEAKER) (test hhba=880) 3.2 mg/dL 2.3-4.7 [id number] 04:18:00 Test Item Value Reference Range Comments MAGNESIUM (BEAKER) (test phgb=907) 1.7 mg/dL 1.6-2.6 BASIC METABOLIC [id number] 04:18:00 Test Item Value Reference Range Comments SODIUM (BEAKER) (test 141 meq/L 136-145 ujpv=504) POTASSIUM (BEAKER) (test 4.5 meq/L 3.5-5.1 vbmq=497) CHLORIDE (BEAKER) (test 116 meq/L 98-107 ymci=707) CO2 (BEAKER) (test 19 meq/L 22-29 alog=450) BLOOD UREA NITROGEN 29 mg/dL 7-21 (BEAKER) (test qumo=971) CREATININE (BEAKER) (test 1.89 mg/dL 0.57-1.25 zeaf=808) GLUCOSE RANDOM (BEAKER) 124 mg/dL 70-105 (test utfq=533) CALCIUM (BEAKER) (test 8.8 mg/dL 8.4-10.2 mjpy=010) EGFR (BEAKER) (test 35 mL/min/1.73 sq m ESTIMATED GFR IS NOT tozb=1973) ACCURATE CREATININE CLEARANCE IN PREDICTING GLOMERULAR FILTRATION RATE. ESTIMATED GFR IS NOT APPLICABLE FOR DIALYSIS PATIENTS. LACTIC ACID, [id number] 04:10:00 Test Item Value Reference Range Comments LACTATE BLOOD ARTERIAL (2) (BEAKER) (test 1.1 mmol/L 0.5-2.2 ilmq=0032) CBC (HEMOGRAM ONLY)[id number] 03:58:00 Test Item Value Reference Range Comments WHITE BLOOD CELL COUNT (BEAKER) (test iuux=855) 3.6 K/ L 3.5-10.5 RED BLOOD CELL COUNT (BEAKER) (test tfpb=554) 2.45 M/ L 4.63-6.08 HEMOGLOBIN (BEAKER) (test veqk=944) 7.3 GM/DL 13.7-17.5 HEMATOCRIT (BEAKER) (test gsko=506) 22.8 % 40.1-51.0 MEAN CORPUSCULAR VOLUME (BEAKER) (test drbv=755) 93.1 fL 79.0-92.2 MEAN CORPUSCULAR HEMOGLOBIN (BEAKER) (test 29.8 pg 25.7-32.2 tnqy=415) MEAN CORPUSCULAR HEMOGLOBIN CONC (BEAKER) (test 32.0 GM/DL 32.3-36.5 gqcu=086) RED CELL DISTRIBUTION WIDTH (BEAKER) (test 14.8 % 11.6-14.4 rgqk=088) PLATELET COUNT (BEAKER) (test mhgn=783) 68 K/CU MM 150-450 MEAN PLATELET VOLUME (BEAKER) (test fouo=909) 10.1 fL 9.4-12.4 NUCLEATED RED BLOOD CELLS (BEAKER) (test 0 /100 WBC 0-0 ryjz=297) BLOOD GAS, [id number] 03:51:00 Test Item Value Reference Range Comments PH ARTERIAL (BEAKER) (test rubp=948) 7.38 7.35-7.45 PCO2 ARTERIAL (BEAKER) (test namp=367) 31 mmHg 35-45 PO2 ARTERIAL (BEAKER) (test bznv=907) 104 mmHg 80-90 O2 SATURATION ARTERIAL (BEAKER) (test xljc=159) 97.7 % 96.0-97.0 HCO3 ARTERIAL (BEAKER) (test qyij=069) 18 mmol/L 21-29 BASE EXCESS ARTERIAL (BEAKER) (test fyfj=723) -6.3 mmol/L -2.0-3.0 PATIENT TEMPERATURE (BEAKER) (test jted=9737) 37.1 C FIO2 (BEAKER) (test cgyn=2416) 40.0 % CALCIUM, [id number] 03:51:00 Test Item Value Reference Range Comments CALCIUM IONIZED (BEAKER) (test vqde=648) 1.19 mmol/L 1.12-1.27 PH, BLOOD (BEAKER) (test ypzp=5132) 7.39 OXYGEN SATURATION, [id number] 03:50:00 Test Item Value Reference Range Comments O2 SATURATION (MEASURED) (BEAKER) (test hwio=6100) 62.1 % POCT-GLUCOSE [id number] 02:27:00 Test Item Value Reference Range Comments POC-GLUCOSE METER (BEAKER) 133 mg/dL 70-110 TESTED AT [facility] [address] [facility] (test kaob=5745) [facility] [address] BLOOD GAS, [id number] 00:25:00 Test Item Value Reference Range Comments PH ARTERIAL (BEAKER) (test jlrl=934) 7.43 7.35-7.45 PCO2 ARTERIAL (BEAKER) (test kgqo=356) 27 mmHg 35-45 PO2 ARTERIAL (BEAKER) (test nxdo=127) 77 mmHg 80-90 O2 SATURATION ARTERIAL (BEAKER) (test vivk=489) 96.2 % 96.0-97.0 HCO3 ARTERIAL (BEAKER) (test hkfx=863) 18 mmol/L 21-29 BASE EXCESS ARTERIAL (BEAKER) (test emsf=414) -5.8 mmol/L -2.0-3.0 PATIENT TEMPERATURE (BEAKER) (test hleq=3975) 36.4 C FIO2 (BEAKER) (test mzqh=7253) 40.0 % GLUCOSE-STAT [id number] 00:25:00 Test Item Value Reference Range Comments GLUCOSE RANDOM (BEAKER) (test updc=502) 124 mg/dL 70-110 HGB/HCT (H&H) - STAT [id number] 00:25:00 Test Item Value Reference Range Comments HEMOGLOBIN (BEAKER) (test dlrn=521) 8.3 g/dL 13.0-16.8 HEMATOCRIT (BEAKER) (test txdn=564) 24.0 % 40.0-50.0 SODIUM NA-STAT [id number] 00:17:00 Test Item Value Reference Range Comments SODIUM (BEAKER) (test vgyq=709) 136 meq/L 135-148 POTASSIUM-STAT [id number] 00:17:00 Test Item Value Reference Range Comments POTASSIUM (BEAKER) (test qgew=773) 4.7 meq/L 3.6-5.5 OXYGEN SATURATION, [id number] 00:17:00 Test Item Value Reference Range Comments O2 SATURATION (MEASURED) (BEAKER) (test yydc=9399) 53.5 % POCT-GLUCOSE [id number] 22:40:00 Test Item Value Reference Range Comments POC-GLUCOSE METER (BEAKER) 125 mg/dL 70-110 TESTED AT [address] (test letm=9814) [place] [id number] POCT-GLUCOSE [id number] 22:40:00 Test Item Value Reference Range Comments POC-GLUCOSE METER (BEAKER) 106 mg/dL 70-110 TESTED AT [address] (test bhjp=9751) [facility] [address] LACTIC ACID, [id number] 22:36:00 Test Item Value Reference Range Comments LACTATE BLOOD ARTERIAL (2) (BEAKER) (test 0.8 mmol/L 0.5-2.2 suyu=3807) For occult hypoperfusionBLOOD GAS, [id number] 21:16:00 Test Item Value Reference Range Comments PH ARTERIAL (BEAKER) (test fpqs=032) 7.39 7.35-7.45 PCO2 ARTERIAL (BEAKER) (test gwko=412) 32 mmHg 35-45 PO2 ARTERIAL (BEAKER) (test ytvt=234) 111 mmHg 80-90 O2 SATURATION ARTERIAL (BEAKER) (test ltqj=080) 98.1 % 96.0-97.0 HCO3 ARTERIAL (BEAKER) (test fpcx=090) 19 mmol/L 21-29 BASE EXCESS ARTERIAL (BEAKER) (test syac=472) -5.3 mmol/L -2.0-3.0 PATIENT TEMPERATURE (BEAKER) (test dhnt=8301) 37.1 C FIO2 (BEAKER) (test xqnh=3071) 40.0 % GLUCOSE-STAT [id number] 21:16:00 Test Item Value Reference Range Comments GLUCOSE RANDOM (BEAKER) (test olkv=118) 117 mg/dL 70-110 HGB/HCT (H&H) - STAT [id number] 21:16:00 Test Item Value Reference Range Comments HEMOGLOBIN (BEAKER) (test ncrw=080) 8.3 g/dL 13.0-16.8 HEMATOCRIT (BEAKER) (test ruuw=273) 24.0 % 40.0-50.0 SODIUM NA-STAT [id number] 21:11:00 Test Item Value Reference Range Comments SODIUM (BEAKER) (test gobm=059) 135 meq/L 135-148 POTASSIUM-STAT [id number] 21:11:00 Test Item Value Reference Range Comments POTASSIUM (BEAKER) (test uyds=311) 4.8 meq/L 3.6-5.5 RAD, CHEST, 1 VIEW, NON [id number] 21:07:00Reason for exam:->s/p bronchoscopyShould this be performed at the bedside?->YesFINAL REPORT RAD, CHEST, 1 VIEW, NON DEPT INDICATION: s/p bronchoscopy COMPARISON: November 12, 2018 FINDINGS: Portable frontal view of the chest. IMPRESSION: Support Lines: Endotracheal tube terminates 3.7 cm above the jd. Right IJ Quinton-Angel catheter tip projects over the main pulmonary artery. Mediastinal drain and left-sided chest tube stable in appearance.Lungs and pleura: Left lung airspace disease has improved consistent with improved atelectasis, with residual small bilateral pleural effusions and left lung base consolidation. No pneumothorax identified with numerous tubes overlying the patient's left lung apex and obscuring fine detail. Heart and mediastinum: Stable cardiomediastinal contour. Additional findings: None. Signed: Frandy Breen Verified Date/Time: 11/12/2018 21:07:15 RAD, CHEST, 1 VIEW, NON [id number] 19:07:00Reason for exam:->hypoxia, respiratory distress s/ p sternotomyShould this be performed at the bedside?->YesFINAL REPORT Chest, one view. HISTORY: hypoxia, respiratory distress s /p sternotomy COMPARISON: Radiograph from earlier today IMPRESSION: Interval opacification of the left chest. The patient rotation does make evaluation suboptimal. However, a majority of this opacification is likely due to atelectasis. There are likely bilateral small pleural effusions. Interval removal of the NG tube. Otherwise, the lines and tubes are unchanged in position. Signed: Jaycob Ray Verified Date/Time: 11/12/2018 19:07:54 Reading Location: [facility] Consult Reading Room POCT-GLUCOSE [id number] 19:02 :00 Test Item Value Reference Range Comments POC-GLUCOSE METER (BEAKER) 81 mg/dL 70-110 TESTED AT [address] (test tucq=4615) [facility] [address] BLOOD GAS, [id number] 18:30:00 Test Item Value Reference Range Comments PH ARTERIAL (BEAKER) (test vbpg=603) 7.32 7.35-7.45 PCO2 ARTERIAL (BEAKER) (test kmln=844) 44 mmHg 35-45 PO2 ARTERIAL (BEAKER) (test mpdz=751) 117 mmHg 80-90 O2 SATURATION ARTERIAL (BEAKER) (test hyzr=169) 97.9 % 96.0-97.0 HCO3 ARTERIAL (BEAKER) (test oxww=652) 22 mmol/L 21-29 BASE EXCESS ARTERIAL (BEAKER) (test tuse=778) -3.6 mmol/L -2.0-3.0 PATIENT TEMPERATURE (BEAKER) (test twia=0322) 37.2 C FIO2 (BEAKER) (test knbc=7195) 100.0 % HGB/HCT (H&H) - STAT [id number] 18:30:00 Test Item Value Reference Range Comments HEMOGLOBIN (BEAKER) (test swzo=420) 8.3 g/dL 13.0-16.8 HEMATOCRIT (BEAKER) (test qdqd=455) 24.0 % 40.0-50.0 GLUCOSE-STAT [id number] 18:28:00 Test Item Value Reference Range Comments GLUCOSE RANDOM (BEAKER) (test xkxs=007) 105 mg/dL 70-110 SODIUM NA-STAT [id number] 18:28:00 Test Item Value Reference Range Comments SODIUM (BEAKER) (test rmfl=903) 137 meq/L 135-148 POTASSIUM-STAT [id number] 18:28:00 Test Item Value Reference Range Comments POTASSIUM (BEAKER) (test tdiy=779) 4.2 meq/L 3.6-5.5 BLOOD GAS, [id number] 17:26:00 Test Item Value Reference Range Comments PH ARTERIAL (BEAKER) (test datb=542) 7.43 7.35-7.45 PCO2 ARTERIAL (BEAKER) (test ylmw=810) 31 mmHg 35-45 PO2 ARTERIAL (BEAKER) (test usot=548) 109 mmHg 80-90 O2 SATURATION ARTERIAL (BEAKER) (test qgmc=779) 98.1 % 96.0-97.0 HCO3 ARTERIAL (BEAKER) (test tqpx=588) 20 mmol/L 21-29 BASE EXCESS ARTERIAL (BEAKER) (test nrms=341) -3.8 mmol/L -2.0-3.0 PATIENT TEMPERATURE (BEAKER) (test gufo=6610) 37.1 C FIO2 (BEAKER) (test veim=0629) 40.0 % GLUCOSE-STAT [id number] 17:26:00 Test Item Value Reference Range Comments GLUCOSE RANDOM (BEAKER) (test kyrs=925) 113 mg/dL 70-110 HGB/HCT (H&H) - STAT [id number] 17:26:00 Test Item Value Reference Range Comments HEMOGLOBIN (BEAKER) (test usub=544) 8.0 g/dL 13.0-16.8 HEMATOCRIT (BEAKER) (test khut=232) 24.0 % 40.0-50.0 SODIUM NA-STAT [id number] 17:25:00 Test Item Value Reference Range Comments SODIUM (BEAKER) (test xoxv=707) 136 meq/L 135-148 POTASSIUM-STAT [id number] 17:25:00 Test Item Value Reference Range Comments POTASSIUM (BEAKER) (test asii=717) 3.8 meq/L 3.6-5.5 POCT-GLUCOSE [id number] 17:01:00 Test Item Value Reference Range Comments POC-GLUCOSE METER (BEAKER) 129 mg/dL 70-110 TESTED AT [address] (test vrjf=7581) [place] [id number] POCT-GLUCOSE [id number] 17:01:00 Test Item Value Reference Range Comments POC-GLUCOSE METER (BEAKER) 166 mg/dL 70-110 TESTED AT [address] (test ecbx=0243) [place] [address] [id number] 15:12:00 Test Item Value Reference Range Comments ACTIVATED CLOTTING TIME 109 sec [address]AKER[address] (test gfse=418) [place] [address] [id number] 15:12:00 Test Item Value Reference Range Comments ACTIVATED CLOTTING TIME 588 sec TESTED AT [address] (BEAKER) (test fthz=884) [place] [address] [id number] 15:12:00 Test Item Value Reference Range Comments ACTIVATED CLOTTING TIME 532 sec TESTED AT [place] [address] [address] (BEAKER) (test mffu=086) [place] [address] [id number] 15:12:00 Test Item Value Reference Range Comments ACTIVATED CLOTTING TIME 532 sec TESTED AT [place] [address] [address] (BEAKER) (test ghof=773) [place] [address] [id number] 15:12:00 Test Item Value Reference Range Comments ACTIVATED CLOTTING TIME 549 sec TESTED AT [place] [address] [address] (BEAKER) (test ukxc=336) [place] [address] [id number] 15:12:00 Test Item Value Reference Range Comments ACTIVATED CLOTTING TIME 367 sec TESTED AT [place] [address] [address] (BEAKER) (test vsxa=985) [facility] [address] [id number] 13:47:00 Test Item Value Reference Range Comments PHOSPHORUS (BEAKER) (test 2.9 mg/dL 2.3-4.7 Specimen slightly hemolyzed fvix=132) HEPATIC FUNCTION [id number] 13:47:00 Test Item Value Reference Range Comments TOTAL PROTEIN (BEAKER) (test 5.3 gm/dL 6.0-8.3 Specimen slightly hemolyzed lmnf=496) ALBUMIN (BEAKER) (test 3.4 g/dL 3.5-5.0 Specimen slightly hemolyzed irvl=7361) BILIRUBIN TOTAL (BEAKER) (test 1.5 mg/dL 0.2-1.2 Specimen slightly hemolyzed tcwi=026) BILIRUBIN DIRECT (BEAKER) (test 0.8 mg/dL 0.1-0.5 Specimen slightly hemolyzed oysm=220) ALKALINE PHOSPHATASE (BEAKER) 103 U/L 40-150 (test mtog=554) AST (SGOT) (BEAKER) (test 29 U/L 5-34 Specimen slightly hemolyzed friz=104) ALT (SGPT) (BEAKER) (test 27 U/L 6-55 Specimen slightly hemolyzed yhks=618) [id number] 13:30:00 Test Item Value Reference Range Comments PROTIME (BEAKER) (test byzn=599) 16.6 seconds 11.9-14.2 INR (BEAKER) (test kyvw=911) 1.4 <=5.9 PARTIAL THROMBOPLASTIN TIME (BEAKER) (test 30.1 seconds 22.5-36.0 oyoy=435) Effective 08/14/2018: PT Reference Range ChangeNew: 11.9-14.2 Previous: 11.7- 14.7RECOMMENDED COUMADIN/WARFARIN INR THERAPY RANGESSTANDARD DOSE: 2.0-3.0 Includes: PROPHYLAXIS for venous thrombosis, systemic embolization; TREATMENT for venous thrombosis and/or pulmonary embolus.HIGH RISK: Target INR is2.5-3.5 for patients wiht mechanical heart valves.[id number] 13:29:00 Test Item Value Reference Range Comments MAGNESIUM (BEAKER) (test khxa=129) 1.9 mg/dL 1.6-2.6 BASIC METABOLIC [id number] 13:29:00 Test Item Value Reference Range Comments SODIUM (BEAKER) (test 136 meq/L 136-145 vzyj=643) POTASSIUM (BEAKER) (test 4.5 meq/L 3.5-5.1 nfzr=005) CHLORIDE (BEAKER) (test 109 meq/L 98-107 nxor=712) CO2 (BEAKER) (test 19 meq/L 22-29 urkv=579) BLOOD UREA NITROGEN 29 mg/dL 7-21 (BEAKER) (test jxjw=399) CREATININE (BEAKER) (test 1.86 mg/dL 0.57-1.25 jtmw=029) GLUCOSE RANDOM (BEAKER) 250 mg/dL 70-105 (test ufig=137) CALCIUM (BEAKER) (test 8.8 mg/dL 8.4-10.2 uaxb=101) EGFR (BEAKER) (test 36 mL/min/1.73 sq m ESTIMATED GFR IS NOT yqyj=5319) ACCURATE CREATININE CLEARANCE IN PREDICTING GLOMERULAR FILTRATION RATE. ESTIMATED GFR IS NOT APPLICABLE FOR DIALYSIS PATIENTS. LACTIC ACID, [id number] 13:25:00 Test Item Value Reference Range Comments LACTATE BLOOD ARTERIAL (2) (BEAKER) (test 1.5 mmol/L 0.5-2.2 lqki=0935) [id number] 13:19:00 Test Item Value Reference Range Comments FIBRINOGEN LEVEL (BEAKER) (test fvqv=823) 295 mg/dl 225-434 RAD, CHEST, 1 VIEW, NON [id number] 13:18:00Reason for exam:->s/p intubationShould this be performed at the bedside?->YesFINAL REPORT RAD, CHEST, 1 VIEW, NON DEPT INDICATION: s/p intubation COMPARISON: Prior day's exam FINDINGS: Portable frontal view of the chest. IMPRESSION: Support Lines: Quinton-Angel catheter tip overlies the pulmonary outflow tract. ET tube tip is 5 cm superior to the jd. NG tube descends below the diaphragm. Mediastinal drains. Lungs and pleura: Unchanged airspace and pleural opacities. No pneumothorax.Heart and mediastinum: Stable contours. Stable surgical changes.Additional findings: None. Signed: Jazmin Jimenez Verified Date/Time: 11/12/2018 13:18:19 Reading Location: [facility] Radiology Reading Room CBC W/PLT COUNT & AUTO [id number] 13: 16:00 Test Item Value Reference Range Comments WHITE BLOOD CELL COUNT (BEAKER) (test frbe=466) 7.3 K/ L 3.5-10.5 RED BLOOD CELL COUNT (BEAKER) (test lotb=455) 3.05 M/ L 4.63-6.08 HEMOGLOBIN (BEAKER) (test yaxf=272) 8.9 GM/DL 13.7-17.5 HEMATOCRIT (BEAKER) (test dbip=620) 28.8 % 40.1-51.0 MEAN CORPUSCULAR VOLUME (BEAKER) (test zxfx=473) 94.4 fL 79.0-92.2 MEAN CORPUSCULAR HEMOGLOBIN (BEAKER) (test 29.2 pg 25.7-32.2 qjat=474) MEAN CORPUSCULAR HEMOGLOBIN CONC (BEAKER) (test 30.9 GM/DL 32.3-36.5 ynpo=559) RED CELL DISTRIBUTION WIDTH (BEAKER) (test 14.6 % 11.6-14.4 xlxf=500) PLATELET COUNT (BEAKER) (test wufz=762) 116 K/CU MM 150-450 MEAN PLATELET VOLUME (BEAKER) (test pult=129) 10.1 fL 9.4-12.4 NUCLEATED RED BLOOD CELLS (BEAKER) (test 0 /100 WBC 0-0 bydq=128) NEUTROPHILS RELATIVE PERCENT (BEAKER) (test 61 % aerg=583) LYMPHOCYTES RELATIVE PERCENT (BEAKER) (test 28 % kllk=962) MONOCYTES RELATIVE PERCENT (BEAKER) (test 9 % kpsi=357) EOSINOPHILS RELATIVE PERCENT (BEAKER) (test 1 % npat=042) BASOPHILS RELATIVE PERCENT (BEAKER) (test 0 % dygb=758) NEUTROPHILS ABSOLUTE COUNT (BEAKER) (test 4.46 K/ L 1.78-5.38 jljm=635) LYMPHOCYTES ABSOLUTE COUNT (BEAKER) (test 2.00 K/ L 1.32-3.57 saij=290) MONOCYTES ABSOLUTE COUNT (BEAKER) (test 0.68 K/ L 0.30-0.82 dmbs=700) EOSINOPHILS ABSOLUTE COUNT (BEAKER) (test 0.06 K/ L 0.04-0.54 veok=128) BASOPHILS ABSOLUTE COUNT (BEAKER) (test 0.03 K/ L 0.01-0.08 nzxf=309) IMMATURE GRANULOCYTES-RELATIVE PERCENT (BEAKER) 1 % 0-1 (test fvqb=7067) SODIUM NA-STAT [id number] 13:12:00 Test Item Value Reference Range Comments SODIUM (BEAKER) (test mhom=070) 134 meq/L 135-148 GLUCOSE-STAT [id number] 13:12:00 Test Item Value Reference Range Comments GLUCOSE RANDOM (BEAKER) (test xnpr=985) 239 mg/dL 70-110 HGB/HCT (H&H) - STAT [id number] 13:12:00 Test Item Value Reference Range Comments HEMOGLOBIN (BEAKER) (test zskn=303) 9.6 g/dL 13.0-16.8 HEMATOCRIT (BEAKER) (test ckge=363) 28.0 % 40.0-50.0 BLOOD GAS, [id number] 13:11:00 Test Item Value Reference Range Comments PH ARTERIAL (BEAKER) (test etsg=782) 7.42 7.35-7.45 PCO2 ARTERIAL (BEAKER) (test qpvv=334) 32 mm Hg 35-45 PO2 ARTERIAL (BEAKER) (test bjud=671) 110 mm Hg 80-90 O2 SATURATION ARTERIAL (BEAKER) (test zscx=648) 98.5 % 96.0-97.0 HCO3 ARTERIAL (BEAKER) (test ovqf=882) 21 mmol/L 21-29 BASE EXCESS ARTERIAL (BEAKER) (test zujr=030) -4.0 mmol/L -2.0-3.0 PATIENT TEMPERATURE (BEAKER) (test wnhc=3953) 34.4 FIO2 (BEAKER) (test kwsl=2824) 60 POTASSIUM-STAT [id number] 13:11:00 Test Item Value Reference Range Comments POTASSIUM (BEAKER) (test xwke=036) 4.4 meq/L 3.6-5.5 OXYGEN SATURATION, [id number] 13:11:00 Test Item Value Reference Range Comments O2 SATURATION (MEASURED) (BEAKER) (test fqze=3220) 87.9 % CALCIUM, [id number] 13:10:00 Test Item Value Reference Range Comments CALCIUM IONIZED (BEAKER) (test kxba=193) 1.16 mmol/L 1.12-1.27 PH, BLOOD (BEAKER) (test rzca=8360) 7.42 THROMBOELASTOGRAPH ([id number])[id number] 12:01:00 Test Item Value Reference Range Comments TEG ACTIVATED CLOTTING TIME (BEAKER) (test 7.6 minutes 4.0-7.0 bpvr=7555) TEG FIBRINOGEN ACTIVITY (BEAKER) (test 64.8 degrees 61.0-73.0 djez=1196) TEG PLT. AGGREGATION (BEAKER) (test ysla=3075) 55.7 MM 55.0-65.0 TGH ACTIVATED CLOTTING TIME (BEAKER) (test 8.4 minutes 4.0-7.0 hdrd=0133) TGH FIBRINOGEN ACTIVITY (BEAKER) (test 60.9 degrees 61.0-73.0 afxu=9396) TGH PLT. AGGREGATION (BEAKER) (test eltv=8908) 35.8 MM 55.0-65.0 [id number] 11:49:00 Test Item Value Reference Range Comments FIBRINOGEN LEVEL (BEAKER) (test zlya=199) 301 mg/dl 225-434 [id number] 11:49:00 Test Item Value Reference Range Comments PARTIAL THROMBOPLASTIN TIME (BEAKER) (test 29.6 seconds 22.5-36.0 wyto=708) BLOOD GAS, [id number] 11:39:00 Test Item Value Reference Range Comments PH ARTERIAL (BEAKER) (test xoxx=725) 7.31 7.35-7.45 PCO2 ARTERIAL (BEAKER) (test zgfx=560) 41 mmHg 35-45 PO2 ARTERIAL (BEAKER) (test inhc=557) 290 mmHg 80-90 O2 SATURATION ARTERIAL (BEAKER) (test gvqx=223) 99.6 % 96.0-97.0 HCO3 ARTERIAL (BEAKER) (test ighc=820) 21 mmol/L 21-29 BASE EXCESS ARTERIAL (BEAKER) (test nccu=031) -5.5 mmol/L -2.0-3.0 PATIENT TEMPERATURE (BEAKER) (test yqex=7097) 35.0 C FIO2 (BEAKER) (test sodp=1079) 100.0 % SODIUM NA-STAT [id number] 11:39:00 Test Item Value Reference Range Comments SODIUM (BEAKER) (test lvqk=285) 132 meq/L 135-148 GLUCOSE-STAT [id number] 11:39:00 Test Item Value Reference Range Comments GLUCOSE RANDOM (BEAKER) (test vgbe=617) 227 mg/dL 70-110 HGB/HCT (H&H) - STAT [id number] 11:39:00 Test Item Value Reference Range Comments HEMOGLOBIN (BEAKER) (test hpka=243) 9.8 g/dL 13.0-16.8 HEMATOCRIT (BEAKER) (test fkku=785) 29.0 % 40.0-50.0 CALCIUM, [id number] 11:39:00 Test Item Value Reference Range Comments CALCIUM IONIZED (BEAKER) (test dwxn=556) 1.24 mmol/L 1.12-1.27 PH, BLOOD (BEAKER) (test wqvd=0401) 7.29 POTASSIUM-STAT [id number] 11:37:00 Test Item Value Reference Range Comments POTASSIUM (BEAKER) (test gfcy=776) 4.8 meq/L 3.6-5.5 BLOOD GAS, [id number] 11:15:00 Test Item Value Reference Range Comments PH ARTERIAL (BEAKER) (test wxml=833) 7.37 7.35-7.45 PCO2 ARTERIAL (BEAKER) (test qafx=055) 37 mmHg 35-45 PO2 ARTERIAL (BEAKER) (test uxxy=028) 268 mmHg 80-90 O2 SATURATION ARTERIAL (BEAKER) (test dntr=107) 99.6 % 96.0-97.0 HCO3 ARTERIAL (BEAKER) (test bddg=988) 21 mmol/L 21-29 BASE EXCESS ARTERIAL (BEAKER) (test hgqa=288) -4.4 mmol/L -2.0-3.0 PATIENT TEMPERATURE (BEAKER) (test hswf=1852) 35.0 C FIO2 (BEAKER) (test ycwu=1938) 100.0 % SODIUM NA-STAT [id number] 11:15:00 Test Item Value Reference Range Comments SODIUM (BEAKER) (test ggmp=597) 129 meq/L 135-148 GLUCOSE-STAT [id number] 11:15:00 Test Item Value Reference Range Comments GLUCOSE RANDOM (BEAKER) (test tzch=642) 209 mg/dL 70-110 HGB/HCT (H&H) - STAT [id number] 11:15:00 Test Item Value Reference Range Comments HEMOGLOBIN (BEAKER) (test rjza=340) 8.0 g/dL 13.0-16.8 HEMATOCRIT (BEAKER) (test iduo=068) 24.0 % 40.0-50.0 POTASSIUM-STAT [id number] 11:13:00 Test Item Value Reference Range Comments POTASSIUM (BEAKER) (test jfaj=846) 4.6 meq/L 3.6-5.5 CALCIUM, [id number] 11:13:00 Test Item Value Reference Range Comments CALCIUM IONIZED (BEAKER) (test qlst=539) 1.26 mmol/L 1.12-1.27 PH, BLOOD (BEAKER) (test lbwl=6468) 7.34 BLOOD GAS, [id number] 10:43:00 Test Item Value Reference Range Comments PH ARTERIAL (BEAKER) (test zbej=749) 7.37 7.35-7.45 PCO2 ARTERIAL (BEAKER) (test zpsx=717) 37 mmHg 35-45 PO2 ARTERIAL (BEAKER) (test zpcy=995) 282 mmHg 80-90 O2 SATURATION ARTERIAL (BEAKER) (test dhzb=348) 99.6 % 96.0-97.0 HCO3 ARTERIAL (BEAKER) (test uksa=464) 21 mmol/L 21-29 BASE EXCESS ARTERIAL (BEAKER) (test zdlj=700) -4.2 mmol/L -2.0-3.0 PATIENT TEMPERATURE (BEAKER) (test guoo=6910) 35.4 C FIO2 (BEAKER) (test aisb=6833) 75.0 % SODIUM NA-STAT [id number] 10:43:00 Test Item Value Reference Range Comments SODIUM (BEAKER) (test bohh=153) 129 meq/L 135-148 POTASSIUM-STAT [id number] 10:43:00 Test Item Value Reference Range Comments POTASSIUM (BEAKER) (test avxy=821) 6.0 meq/L 3.6-5.5 GLUCOSE-STAT [id number] 10:43:00 Test Item Value Reference Range Comments GLUCOSE RANDOM (BEAKER) (test wbjn=901) 207 mg/dL 70-110 HGB/HCT (H&H) - STAT [id number] 10:43:00 Test Item Value Reference Range Comments HEMOGLOBIN (BEAKER) (test sbks=136) 8.5 g/dL 13.0-16.8 HEMATOCRIT (BEAKER) (test ymma=746) 25.0 % 40.0-50.0 POTASSIUM-STAT [id number] 10:13:00 Test Item Value Reference Range Comments POTASSIUM (BEAKER) (test kias=497) 5.5 meq/L 3.6-5.5 BLOOD GAS, [id number] 10:13:00 Test Item Value Reference Range Comments PH ARTERIAL (BEAKER) (test amjr=057) 7.39 7.35-7.45 PCO2 ARTERIAL (BEAKER) (test ozuk=676) 37 mmHg 35-45 PO2 ARTERIAL (BEAKER) (test htaw=616) 323 mmHg 80-90 O2 SATURATION ARTERIAL (BEAKER) (test lrxa=900) 99.7 % 96.0-97.0 HCO3 ARTERIAL (BEAKER) (test hvqd=461) 23 mmol/L 21-29 BASE EXCESS ARTERIAL (BEAKER) (test hrcf=121) -3.0 mmol/L -2.0-3.0 PATIENT TEMPERATURE (BEAKER) (test utjh=0715) 33.1 C FIO2 (BEAKER) (test bein=2692) 70.0 % SODIUM NA-STAT [id number] 10:13:00 Test Item Value Reference Range Comments SODIUM (BEAKER) (test mygd=400) 129 meq/L 135-148 GLUCOSE-STAT [id number] 10:13:00 Test Item Value Reference Range Comments GLUCOSE RANDOM (BEAKER) (test lapj=003) 190 mg/dL 70-110 HGB/HCT (H&H) - STAT [id number] 10:13:00 Test Item Value Reference Range Comments HEMOGLOBIN (BEAKER) (test mcmn=497) 6.6 g/dL 13.0-16.8 HEMATOCRIT (BEAKER) (test qusd=172) 19.0 % 40.0-50.0 BLOOD GAS, [id number] 09:52:00 Test Item Value Reference Range Comments PH ARTERIAL (BEAKER) (test ajud=058) 7.41 7.35-7.45 PCO2 ARTERIAL (BEAKER) (test fmsr=100) 35 mmHg 35-45 PO2 ARTERIAL (BEAKER) (test frsv=758) 341 mmHg 80-90 O2 SATURATION ARTERIAL (BEAKER) (test xemf=145) 99.8 % 96.0-97.0 HCO3 ARTERIAL (BEAKER) (test aerq=697) 23 mmol/L 21-29 BASE EXCESS ARTERIAL (BEAKER) (test dsml=628) -2.6 mmol/L -2.0-3.0 PATIENT TEMPERATURE (BEAKER) (test qots=0212) 30.2 C FIO2 (BEAKER) (test rkzm=2225) 70.0 % SODIUM NA-STAT [id number] 09:52:00 Test Item Value Reference Range Comments SODIUM (BEAKER) (test hkeq=271) 130 meq/L 135-148 GLUCOSE-STAT [id number] 09:52:00 Test Item Value Reference Range Comments GLUCOSE RANDOM (BEAKER) (test frgj=449) 188 mg/dL 70-110 HGB/HCT (H&H) - STAT [id number] 09:52:00 Test Item Value Reference Range Comments HEMOGLOBIN (BEAKER) (test gbqa=808) 6.8 g/dL 13.0-16.8 HEMATOCRIT (BEAKER) (test blab=771) 20.0 % 40.0-50.0 POTASSIUM-STAT [id number] 09:50:00 Test Item Value Reference Range Comments POTASSIUM (BEAKER) (test kxxh=240) 4.9 meq/L 3.6-5.5 POTASSIUM-STAT [id number] 09:24:00 Test Item Value Reference Range Comments POTASSIUM (BEAKER) (test nipo=696) 4.5 meq/L 3.6-5.5 BLOOD GAS, [id number] 09:24:00 Test Item Value Reference Range Comments PH ARTERIAL (BEAKER) (test btlj=188) 7.37 7.35-7.45 PCO2 ARTERIAL (BEAKER) (test fdpn=481) 38 mmHg 35-45 PO2 ARTERIAL (BEAKER) (test dmig=239) 478 mmHg 80-90 O2 SATURATION ARTERIAL (BEAKER) (test ytzz=481) 99.9 % 96.0-97.0 HCO3 ARTERIAL (BEAKER) (test boxw=255) 23 mmol/L 21-29 BASE EXCESS ARTERIAL (BEAKER) (test guud=945) -3.4 mmol/L -2.0-3.0 PATIENT TEMPERATURE (BEAKER) (test mlpj=3749) 32.2 C FIO2 (BEAKER) (test ohyr=7603) 90.0 % SODIUM NA-STAT [id number] 09:24:00 Test Item Value Reference Range Comments SODIUM (BEAKER) (test kzsz=632) 129 meq/L 135-148 GLUCOSE-STAT [id number] 09:24:00 Test Item Value Reference Range Comments GLUCOSE RANDOM (BEAKER) (test kmut=248) 174 mg/dL 70-110 HGB/HCT (H&H) - STAT [id number] 09:24:00 Test Item Value Reference Range Comments HEMOGLOBIN (BEAKER) (test fxol=159) 6.1 g/dL 13.0-16.8 HEMATOCRIT (BEAKER) (test qygw=072) 18.0 % 40.0-50.0 OXYGEN SATURATION, [id number] 08:21:00 Test Item Value Reference Range Comments O2 SATURATION (MEASURED) (BEAKER) (test jkfn=7572) 53.7 % GLUCOSE-STAT [id number] 08:21:00 Test Item Value Reference Range Comments GLUCOSE RANDOM (BEAKER) (test rksu=809) 106 mg/dL 70-110 SODIUM NA-STAT [id number] 08:21:00 Test Item Value Reference Range Comments SODIUM (BEAKER) (test exeo=427) 135 meq/L 135-148 POTASSIUM-STAT [id number] 08:21:00 Test Item Value Reference Range Comments POTASSIUM (BEAKER) (test ohzk=077) 3.6 meq/L 3.6-5.5 BLOOD GAS, [id number] 08:21:00 Test Item Value Reference Range Comments PH ARTERIAL (BEAKER) (test ducj=847) 7.46 7.35-7.45 PCO2 ARTERIAL (BEAKER) (test ogmv=728) 31 mmHg 35-45 PO2 ARTERIAL (BEAKER) (test axja=838) 139 mmHg 80-90 O2 SATURATION ARTERIAL (BEAKER) (test wpbw=102) 98.9 % 96.0-97.0 HCO3 ARTERIAL (BEAKER) (test xhpe=619) 21 mmol/L 21-29 BASE EXCESS ARTERIAL (BEAKER) (test jvqb=127) -2.1 mmol/L -2.0-3.0 PATIENT TEMPERATURE (BEAKER) (test fuax=6125) 36.4 C FIO2 (BEAKER) (test tgsa=5962) 96.0 % HGB/HCT (H&H) - STAT [id number] 08:21:00 Test Item Value Reference Range Comments HEMOGLOBIN (BEAKER) (test lsez=487) 9.9 g/dL 13.0-16.8 HEMATOCRIT (BEAKER) (test reqe=930) 29.0 % 40.0-50.0 HEMOGLOBIN [id number] 08:05:00 Test Item Value Reference Range Comments HEMOGLOBIN A1C (BEAKER) (test zwcs=311) 5.8 % 4.3-6.1 CBC (HEMOGRAM ONLY)2018-11-12 06:55:00 Test Item Value Reference Range Comments WHITE BLOOD CELL COUNT (BEAKER) (test vlca=245) 3.5 K/ L 3.5-10.5 RED BLOOD CELL COUNT (BEAKER) (test aiqu=348) 3.42 M/ L 4.63-6.08 HEMOGLOBIN (BEAKER) (test ikgd=026) 9.9 GM/DL 13.7-17.5 HEMATOCRIT (BEAKER) (test pvvy=754) 31.6 % 40.1-51.0 MEAN CORPUSCULAR VOLUME (BEAKER) (test dzyu=871) 92.4 fL 79.0-92.2 MEAN CORPUSCULAR HEMOGLOBIN (BEAKER) (test 28.9 pg 25.7-32.2 sroz=713) MEAN CORPUSCULAR HEMOGLOBIN CONC (BEAKER) (test 31.3 GM/DL 32.3-36.5 llqj=005) RED CELL DISTRIBUTION WIDTH (BEAKER) (test 14.6 % 11.6-14.4 ueld=755) PLATELET COUNT (BEAKER) (test iaal=447) 181 K/CU MM 150-450 MEAN PLATELET VOLUME (BEAKER) (test krpn=304) 10.0 fL 9.4-12.4 NUCLEATED RED BLOOD CELLS (BEAKER) (test 0 /100 WBC 0-0 zbse=835) BLOOD GAS, [id number] 03:41:00 Test Item Value Reference Range Comments PH ARTERIAL (BEAKER) (test zxfw=818) 7.48 7.35-7.45 PCO2 ARTERIAL (BEAKER) (test paac=602) 29 mmHg 35-45 PO2 ARTERIAL (BEAKER) (test wuzy=590) 67 mmHg 80-90 O2 SATURATION ARTERIAL (BEAKER) (test xmol=650) 94.9 % 96.0-97.0 HCO3 ARTERIAL (BEAKER) (test vgcm=098) 22 mmol/L 21-29 BASE EXCESS ARTERIAL (BEAKER) (test qslv=828) -1.4 mmol/L -2.0-3.0 PATIENT TEMPERATURE (BEAKER) (test hfyr=9621) 36.8 C FIO2 (BEAKER) (test boyg=5879) 21.0 % [id number] 02:36:00 Test Item Value Reference Range Comments PARTIAL THROMBOPLASTIN TIME (BEAKER) (test 61.2 seconds 22.5-36.0 mrxo=695) PROTHROMBIN [id number] 02:35:00 Test Item Value Reference Range Comments PROTIME (BEAKER) (test hmaz=857) 14.0 seconds 11.9-14.2 INR (BEAKER) (test ocxd=544) 1.1 <=5.9 Effective 08/14/2018: PT Reference Range ChangeNew: 11.9-14.2 Previous: 11.7- 14.7RECOMMENDED COUMADIN/WARFARIN INR THERAPY RANGESSTANDARD DOSE: 2.0-3.0 Includes: PROPHYLAXIS for venous thrombosis, systemic embolization; TREATMENT for venous thrombosis and/or pulmonary embolus.HIGH RISK: Target INR is2.5-3.5 for patients wiht mechanical heart valves.[id number] 02:27:00 Test Item Value Reference Range Comments MAGNESIUM (BEAKER) (test 2.1 mg/dL 1.6-2.6 Specimen slightly hemolyzed nyfh=867) BASIC METABOLIC [id number] 02:27:00 Test Item Value Reference Range Comments SODIUM (BEAKER) (test 136 meq/L 136-145 kdsa=874) POTASSIUM (BEAKER) (test 3.7 meq/L 3.5-5.1 Specimen slightly wzqd=051) hemolyzed CHLORIDE (BEAKER) (test 106 meq/L 98-107 jmrd=227) CO2 (BEAKER) (test 21 meq/L 22-29 tjdm=788) BLOOD UREA NITROGEN 32 mg/dL 7-21 (BEAKER) (test wutj=809) CREATININE (BEAKER) (test 1.76 mg/dL 0.57-1.25 Specimen slightly zpqg=855) hemolyzed GLUCOSE RANDOM (BEAKER) 98 mg/dL 70-105 (test yhtz=360) CALCIUM (BEAKER) (test 9.5 mg/dL 8.4-10.2 svpi=423) EGFR (BEAKER) (test 38 mL/min/1.73 sq m ESTIMATED GFR IS NOT pizi=0215) ACCURATE CREATININE CLEARANCE IN PREDICTING GLOMERULAR FILTRATION RATE. ESTIMATED GFR IS NOT APPLICABLE FOR DIALYSIS PATIENTS. COMPREHENSIVE METABOLIC [id number] 22:04:00 Test Item Value Reference Range Comments TOTAL PROTEIN (BEAKER) 5.5 gm/dL 6.0-8.3 (test hflv=467) ALBUMIN (BEAKER) (test 3.1 g/dL 3.5-5.0 ceqd=4731) ALKALINE PHOSPHATASE 149 U/L 40-150 (BEAKER) (test ibuj=510) BILIRUBIN TOTAL (BEAKER) 0.5 mg/dL 0.2-1.2 (test bipb=002) SODIUM (BEAKER) (test 137 meq/L 136-145 crvn=224) POTASSIUM (BEAKER) (test 3.9 meq/L 3.5-5.1 glcv=144) CHLORIDE (BEAKER) (test 105 meq/L 98-107 dnxw=192) CO2 (BEAKER) (test 22 meq/L 22-29 xgdb=335) BLOOD UREA NITROGEN 40 mg/dL 7-21 (BEAKER) (test bmsz=924) CREATININE (BEAKER) (test 2.21 mg/dL 0.57-1.25 cflq=248) GLUCOSE RANDOM (BEAKER) 90 mg/dL 70-105 (test xyxr=061) CALCIUM (BEAKER) (test 8.9 mg/dL 8.4-10.2 mfgx=386) AST (SGOT) (BEAKER) (test 24 U/L 5-34 cmsb=698) ALT (SGPT) (BEAKER) (test 36 U/L 6-55 msnt=361) EGFR (BEAKER) (test 29 mL/min/1.73 sq m ESTIMATED GFR IS NOT mknj=7129) ACCURATE CREATININE CLEARANCE IN PREDICTING GLOMERULAR FILTRATION RATE. ESTIMATED GFR IS NOT APPLICABLE FOR DIALYSIS PATIENTS. LIPID [id number] 22:02:00 Test Item Value Reference Range Comments TRIGLYCERIDES (BEAKER) (test kbgf=610) 64 mg/dL CHOLESTEROL (BEAKER) (test dqsd=110) 99 mg/dL HDL CHOLESTEROL (BEAKER) (test ygxm=489) 34 mg/dL LDL CHOLESTEROL CALCULATED (BEAKER) (test last=770) 52 mg/dL Triglyceride Reference Range: Low Risk <150 Borderline 150- 199 High Risk 200-499 Very High Risk >=500Cholesterol Reference Range: Low Risk <200 Borderline 200-239 High Risk > 240HDL Cholesterol Reference Range: Low Risk >=60 High Risk <40LDL Cholesterol Reference Range: Optimal <100 Near Optimal 100-129 Borderline 130-159 High 160-189 Very High >=190CBC W/PLT COUNT & AUTO [id number] 21:36:00 Test Item Value Reference Range Comments WHITE BLOOD CELL COUNT (BEAKER) (test gwyo=146) 3.2 K/ L 3.5-10.5 RED BLOOD CELL COUNT (BEAKER) (test dhzp=691) 3.10 M/ L 4.63-6.08 HEMOGLOBIN (BEAKER) (test zxzc=203) 9.0 GM/DL 13.7-17.5 HEMATOCRIT (BEAKER) (test wjni=358) 29.5 % 40.1-51.0 MEAN CORPUSCULAR VOLUME (BEAKER) (test wkhr=105) 95.2 fL 79.0-92.2 MEAN CORPUSCULAR HEMOGLOBIN (BEAKER) (test 29.0 pg 25.7-32.2 rhff=844) MEAN CORPUSCULAR HEMOGLOBIN CONC (BEAKER) (test 30.5 GM/DL 32.3-36.5 ouit=932) RED CELL DISTRIBUTION WIDTH (BEAKER) (test 14.9 % 11.6-14.4 pobs=845) PLATELET COUNT (BEAKER) (test zfof=238) 172 K/CU MM 150-450 MEAN PLATELET VOLUME (BEAKER) (test inlg=004) 10.8 fL 9.4-12.4 NUCLEATED RED BLOOD CELLS (BEAKER) (test 1 /100 WBC 0-0 iihy=234) NEUTROPHILS RELATIVE PERCENT (BEAKER) (test 40 % ddqi=337) LYMPHOCYTES RELATIVE PERCENT (BEAKER) (test 44 % ukpd=694) MONOCYTES RELATIVE PERCENT (BEAKER) (test 12 % qcgx=700) EOSINOPHILS RELATIVE PERCENT (BEAKER) (test 3 % zgpz=944) BASOPHILS RELATIVE PERCENT (BEAKER) (test 1 % wijb=002) NEUTROPHILS ABSOLUTE COUNT (BEAKER) (test 1.28 K/ L 1.78-5.38 ovph=938) LYMPHOCYTES ABSOLUTE COUNT (BEAKER) (test 1.41 K/ L 1.32-3.57 wgjo=485) MONOCYTES ABSOLUTE COUNT (BEAKER) (test 0.39 K/ L 0.30-0.82 uhmw=896) EOSINOPHILS ABSOLUTE COUNT (BEAKER) (test 0.10 K/ L 0.04-0.54 xwhh=582) BASOPHILS ABSOLUTE COUNT (BEAKER) (test 0.04 K/ L 0.01-0.08 qthd=240) IMMATURE GRANULOCYTES-RELATIVE PERCENT (BEAKER) 0 % 0-1 (test rqwc=6471) [id number] 20:38:00 Test Item Value Reference Range Comments PARTIAL THROMBOPLASTIN TIME (BEAKER) (test 63.6 seconds 22.5-36.0 hnmw=345) [id number] 12:57:00 Test Item Value Reference Range Comments PARTIAL THROMBOPLASTIN TIME (BEAKER) (test 45.6 seconds 22.5-36.0 aako=398) HEMOGLOBIN [id number] 08:16:00 Test Item Value Reference Range Comments HEMOGLOBIN A1C (BEAKER) (test cjkz=384) 5.8 % 4.3-6.1 [id number] 06:24:00 Test Item Value Reference Range Comments PARTIAL THROMBOPLASTIN TIME (BEAKER) (test 71.5 seconds 22.5-36.0 mcch=067) CBC (HEMOGRAM ONLY)2018-11-11 05:42:00 Test Item Value Reference Range Comments WHITE BLOOD CELL COUNT (BEAKER) (test nnum=548) 3.2 K/ L 3.5-10.5 RED BLOOD CELL COUNT (BEAKER) (test qaef=886) 3.12 M/ L 4.63-6.08 HEMOGLOBIN (BEAKER) (test jfxy=940) 9.0 GM/DL 13.7-17.5 HEMATOCRIT (BEAKER) (test djgn=457) 28.4 % 40.1-51.0 MEAN CORPUSCULAR VOLUME (BEAKER) (test uuqu=329) 91.0 fL 79.0-92.2 MEAN CORPUSCULAR HEMOGLOBIN (BEAKER) (test 28.8 pg 25.7-32.2 mkin=301) MEAN CORPUSCULAR HEMOGLOBIN CONC (BEAKER) (test 31.7 GM/DL 32.3-36.5 brru=637) RED CELL DISTRIBUTION WIDTH (BEAKER) (test 14.8 % 11.6-14.4 tusb=769) PLATELET COUNT (BEAKER) (test wczo=866) 156 K/CU MM 150-450 MEAN PLATELET VOLUME (BEAKER) (test blcy=354) 10.3 fL 9.4-12.4 NUCLEATED RED BLOOD CELLS (BEAKER) (test 0 /100 WBC 0-0 tieb=422) [id number] 03:33:00 Test Item Value Reference Range Comments PARTIAL THROMBOPLASTIN TIME (BEAKER) (test 111.1 seconds 22.5-36.0 yadp=171) 6 hours after starting heparin infusion and as indicated per sliding [id number] 03:15:00 Test Item Value Reference Range Comments MAGNESIUM (BEAKER) (test qcll=359) 2.7 mg/dL 1.6-2.6 BASIC METABOLIC [id number] 03:15:00 Test Item Value Reference Range Comments SODIUM (BEAKER) (test 136 meq/L 136-145 cwcf=227) POTASSIUM (BEAKER) (test 3.9 meq/L 3.5-5.1 krav=875) CHLORIDE (BEAKER) (test 105 meq/L 98-107 qrsj=892) CO2 (BEAKER) (test 25 meq/L 22-29 lpcq=053) BLOOD UREA NITROGEN 39 mg/dL 7-21 (BEAKER) (test qscr=154) CREATININE (BEAKER) (test 2.15 mg/dL 0.57-1.25 asfr=873) GLUCOSE RANDOM (BEAKER) 100 mg/dL 70-105 (test jnzu=973) CALCIUM (BEAKER) (test 9.0 mg/dL 8.4-10.2 pldi=609) EGFR (BEAKER) (test 30 mL/min/1.73 sq m ESTIMATED GFR IS NOT wwii=4656) ACCURATE CREATININE CLEARANCE IN PREDICTING GLOMERULAR FILTRATION RATE. ESTIMATED GFR IS NOT APPLICABLE FOR DIALYSIS PATIENTS. [id number] 20:55:00 Test Item Value Reference Range Comments PARTIAL THROMBOPLASTIN TIME (BEAKER) (test 36.9 seconds 22.5-36.0 gaql=780) Prior to initiating heparinPLATELET [id number] 20:44:00 Test Item Value Reference Range Comments PLATELET COUNT (BEAKER) (test ygbo=350) 164 K/CU MM 150-450 LIPID [id number] 20:00:00 Test Item Value Reference Range Comments TRIGLYCERIDES (BEAKER) (test srhq=251) 101 mg/dL CHOLESTEROL (BEAKER) (test wqsm=378) 103 mg/dL HDL CHOLESTEROL (BEAKER) (test fjoz=424) 30 mg/dL LDL CHOLESTEROL CALCULATED (BEAKER) (test 53 mg/dL dszu=410) Triglyceride Reference Range: Low Risk <150 Borderline 150- 199 High Risk 200-499 Very High Risk >=500Cholesterol Reference Range: Low Risk <200 Borderline 200-239 High Risk > 240HDL Cholesterol Reference Range: Low Risk >=60 High Risk <40LDL Cholesterol Reference Range: Optimal <100 Near Optimal 100-129 Borderline 130-159 High 160-189 Very High >=190U/S, RENAL, [id number] 15:47:00Reason for exam:->acute renal failureShould this be performed at the bedside?->YesFINAL REPORT Renal ultrasound dated 11/10/2018 Comment: Real-time transabdominal renal ultrasound was performed.Right kidney measures 9.2 x 4.5 x 4.5 [...] bilaterally. Impression: Unremarkable renal ultrasound. Signed: Nafisa Curtisheather Verified Date/Time: 11/10/2018 15:47:14 Reading Location: [address] Ortho Consult Reading Room HEMOGLOBIN [id number] 08:58:00 Test Item Value Reference Range Comments HEMOGLOBIN A1C (BEAKER) (test kvgf=553) 5.8 % 4.3-6.1 RAD, CHEST, 1 VIEW, NON [id number] 08:50:00Reason for exam:->sobShould this be performed at the bedside?->YesFINAL REPORT AP chest dated 11/10/2018 Comment: Heart is normal in size. Pulmonary vasculature is unremarkable. Subsegmental atelectasis is seen in both lung bases. The rest of the lungs are clear. No pulmonary infiltrate or pleural effusion. Impression : Bibasilar subsegmental atelectasis. Signed: Nafisa Curtis Verified Date /Time: 11/10/2018 08:50:48 Reading Location: [facility] [id number] Ortho Consult Reading Room 08: 50 [id number] 07:08:00 Test Item Value Reference Range Comments FERRITIN (BEAKER) (test znud=730) 370 ng/mL 5-275 BASIC METABOLIC [id number] 06:56:00 Test Item Value Reference Range Comments SODIUM (BEAKER) (test 136 meq/L 136-145 jedk=160) POTASSIUM (BEAKER) (test 3.2 meq/L 3.5-5.1 xqhz=459) CHLORIDE (BEAKER) (test 103 meq/L 98-107 vblp=010) CO2 (BEAKER) (test 25 meq/L 22-29 jzzf=981) BLOOD UREA NITROGEN 40 mg/dL 7-21 (BEAKER) (test ykus=184) CREATININE (BEAKER) (test 2.44 mg/dL 0.57-1.25 kxgh=960) GLUCOSE RANDOM (BEAKER) 101 mg/dL 70-105 (test dpbn=401) CALCIUM (BEAKER) (test 8.5 mg/dL 8.4-10.2 rbdk=040) EGFR (BEAKER) (test 26 mL/min/1.73 sq m ESTIMATED GFR IS NOT mmvr=7708) ACCURATE CREATININE CLEARANCE IN PREDICTING GLOMERULAR FILTRATION RATE. ESTIMATED GFR IS NOT APPLICABLE FOR DIALYSIS PATIENTS. CBC W/PLT COUNT & AUTO [id number] 06:55:00 Test Item Value Reference Range Comments WHITE BLOOD CELL COUNT (BEAKER) (test dqub=275) 3.1 K/ L 3.5-10.5 RED BLOOD CELL COUNT (BEAKER) (test bdmu=870) 2.89 M/ L 4.63-6.08 HEMOGLOBIN (BEAKER) (test zrbs=377) 8.4 GM/DL 13.7-17.5 HEMATOCRIT (BEAKER) (test pjfc=851) 26.7 % 40.1-51.0 MEAN CORPUSCULAR VOLUME (BEAKER) (test conr=332) 92.4 fL 79.0-92.2 MEAN CORPUSCULAR HEMOGLOBIN (BEAKER) (test 29.1 pg 25.7-32.2 pcei=599) MEAN CORPUSCULAR HEMOGLOBIN CONC (BEAKER) (test 31.5 GM/DL 32.3-36.5 ypju=106) RED CELL DISTRIBUTION WIDTH (BEAKER) (test 14.9 % 11.6-14.4 mpul=330) PLATELET COUNT (BEAKER) (test bdjb=072) 154 K/CU MM 150-450 MEAN PLATELET VOLUME (BEAKER) (test zpmq=551) 10.0 fL 9.4-12.4 NUCLEATED RED BLOOD CELLS (BEAKER) (test 0 /100 WBC 0-0 mold=600) NEUTROPHILS RELATIVE PERCENT (BEAKER) (test 41 % hfdf=976) LYMPHOCYTES RELATIVE PERCENT (BEAKER) (test 43 % aigd=583) MONOCYTES RELATIVE PERCENT (BEAKER) (test 11 % jgdy=439) EOSINOPHILS RELATIVE PERCENT (BEAKER) (test 4 % ypel=957) BASOPHILS RELATIVE PERCENT (BEAKER) (test 1 % hwkm=295) NEUTROPHILS ABSOLUTE COUNT (BEAKER) (test 1.25 K/ L 1.78-5.38 qfma=088) LYMPHOCYTES ABSOLUTE COUNT (BEAKER) (test 1.32 K/ L 1.32-3.57 ivto=741) MONOCYTES ABSOLUTE COUNT (BEAKER) (test 0.34 K/ L 0.30-0.82 jmqn=519) EOSINOPHILS ABSOLUTE COUNT (BEAKER) (test 0.13 K/ L 0.04-0.54 ptqv=911) BASOPHILS ABSOLUTE COUNT (BEAKER) (test 0.03 K/ L 0.01-0.08 abgw=408) IMMATURE GRANULOCYTES-RELATIVE PERCENT (BEAKER) 0 % 0-1 (test sjaz=3685) [id number] 06:51:00 Test Item Value Reference Range Comments MAGNESIUM (BEAKER) (test xpwe=171) 3.0 mg/dL 1.6-2.6 IRON, TIBC, % SAT. (WITHOUT FERRITIN)2018-11-10 06:48:00 Test Item Value Reference Range Comments IRON (BEAKER) (test qikj=170) 22.0 ug/dL 40.0-160.0 TOTAL IRON BINDING CAPACITY (BEAKER) (test 244 ug/dL 250-450 worg=907) IRON % SATURATION (2) (BEAKER) (test zaam=6358) 9 % 20-55 CREATININE, RANDOM [id number] 00:38:00 Test Item Value Reference Range Comments CREATININE URINE (BEAKER) (test zzqw=328) 72.6 mg/dL Reference Range: No NormalsSODIUM, RANDOM [id number] 00:38:00 Test Item Value Reference Range Comments SODIUM URINE (BEAKER) (test ffyq=842) 54 meq/L Reference Range: No NormalsUREA NITROGEN, RANDOM [id number] 00:38:00 Test Item Value Reference Range Comments UREA NITROGEN URINE (BEAKER) (test srsk=746) 347 mg/dL Reference Range: No NormalsCBC W/PLT COUNT & AUTO [id number] 22: 58:00 Test Item Value Reference Range Comments WHITE BLOOD CELL COUNT (BEAKER) (test mdvm=089) 3.9 K/ L 3.5-10.5 RED BLOOD CELL COUNT (BEAKER) (test znmo=396) 2.86 M/ L 4.63-6.08 HEMOGLOBIN (BEAKER) (test nisd=796) 8.6 GM/DL 13.7-17.5 HEMATOCRIT (BEAKER) (test ygsv=791) 26.6 % 40.1-51.0 MEAN CORPUSCULAR VOLUME (BEAKER) (test weul=331) 93.0 fL 79.0-92.2 MEAN CORPUSCULAR HEMOGLOBIN (BEAKER) (test 30.1 pg 25.7-32.2 ztvd=549) MEAN CORPUSCULAR HEMOGLOBIN CONC (BEAKER) (test 32.3 GM/DL 32.3-36.5 vdzr=983) RED CELL DISTRIBUTION WIDTH (BEAKER) (test 15.1 % 11.6-14.4 nfzt=843) PLATELET COUNT (BEAKER) (test dpwu=744) 184 K/CU MM 150-450 MEAN PLATELET VOLUME (BEAKER) (test dkiu=132) 10.8 fL 9.4-12.4 NUCLEATED RED BLOOD CELLS (BEAKER) (test 0 /100 WBC 0-0 ixco=604) NEUTROPHILS RELATIVE PERCENT (BEAKER) (test 51 % inzz=778) LYMPHOCYTES RELATIVE PERCENT (BEAKER) (test 36 % dbis=643) MONOCYTES RELATIVE PERCENT (BEAKER) (test 10 % lvdv=781) EOSINOPHILS RELATIVE PERCENT (BEAKER) (test 2 % itaw=147) BASOPHILS RELATIVE PERCENT (BEAKER) (test 1 % tkdk=851) NEUTROPHILS ABSOLUTE COUNT (BEAKER) (test 1.97 K/ L 1.78-5.38 izkw=985) LYMPHOCYTES ABSOLUTE COUNT (BEAKER) (test 1.39 K/ L 1.32-3.57 toto=991) MONOCYTES ABSOLUTE COUNT (BEAKER) (test 0.38 K/ L 0.30-0.82 tgmt=397) EOSINOPHILS ABSOLUTE COUNT (BEAKER) (test 0.08 K/ L 0.04-0.54 cekk=592) BASOPHILS ABSOLUTE COUNT (BEAKER) (test 0.04 K/ L 0.01-0.08 xgul=926) IMMATURE GRANULOCYTES-RELATIVE PERCENT (BEAKER) 1 % 0-1 (test bwhl=0447) BASIC METABOLIC [id number] 22:35:00 Test Item Value Reference Range Comments SODIUM (BEAKER) (test 134 meq/L 136-145 nzav=105) POTASSIUM (BEAKER) (test 4.1 meq/L 3.5-5.1 Specimen slightly qyjj=367) hemolyzed CHLORIDE (BEAKER) (test 104 meq/L 98-107 tsyt=721) CO2 (BEAKER) (test 21 meq/L 22-29 ayzr=846) BLOOD UREA NITROGEN 42 mg/dL 7-21 (BEAKER) (test cari=079) CREATININE (BEAKER) (test 2.55 mg/dL 0.57-1.25 Specimen slightly bods=662) hemolyzed GLUCOSE RANDOM (BEAKER) 120 mg/dL 70-105 (test lywo=137) CALCIUM (BEAKER) (test 8.6 mg/dL 8.4-10.2 dzjw=709) EGFR (BEAKER) (test 25 mL/min/1.73 sq m ESTIMATED GFR IS NOT mydb=1201) ACCURATE CREATININE CLEARANCE IN PREDICTING GLOMERULAR FILTRATION RATE. ESTIMATED GFR IS NOT APPLICABLE FOR DIALYSIS PATIENTS. [id number] 22:34:00 Test Item Value Reference Range Comments MAGNESIUM (BEAKER) (test 3.2 mg/dL 1.6-2.6 Specimen slightly hemolyzed mkbs=441) [id number] 22:31:00 Test Item Value Reference Range Comments PROTIME (BEAKER) (test jvkp=314) 15.6 seconds 11.9-14.2 INR (BEAKER) (test xtai=066) 1.3 <=5.9 PARTIAL THROMBOPLASTIN TIME (BEAKER) (test 40.5 seconds 22.5-36.0 lwjm=786) Effective 08/14/2018: PT Reference Range ChangeNew: 11.9-14.2 Previous: 11.7- 14.7RECOMMENDED COUMADIN/WARFARIN INR THERAPY RANGESSTANDARD DOSE: 2.0-3.0 Includes: PROPHYLAXIS for venous thrombosis, systemic embolization; TREATMENT for venous thrombosis and/or pulmonary embolus.HIGH RISK: Target INR is2.5-3.5 for patients wiht mechanical heart valves.
--- OUTSIDE RECORDS SUMMARY | 2018-11-19 23:25 | XMS REPORT ---
:1945 Author Organization [employer] Care Team Providers Name Role Phone Leonard Carlos Provider Role Unavailable Allergies No Known Allergies Problems Problem Type Condition Code Onset Dates Condition Status Problem Mixed hyperlipidemia E78.2 Active Problem 3-vessel coronary artery disease I25.10 Active Problem Alcohol abuse F10.10 Active Problem Tobacco use disorder, continuous F17.209 Active Problem Hx of non-ST elevation myocardial I25.2 Active infarction (NSTEMI) Problem Chronic obstructive pulmonary J44.9 Active disease, unspecified COPD type Problem HTN, goal below 140/90 I10 Active Medications No Known Medications Results No Known Results Summary Purpose [employer] Submission
[2018-11-19 23:56] LABS: Protime INR 1.38
[2018-11-19 23:57] LABS: Absolute Lymphocytes (CBC) 1.9 K/uL (0.7-4.9); Basophils % 0.5 % (0-1.3); Hematocrit 33.1 % (39.6-49.0); Lymphocytes % 28.2 % (15.3-44.8); MPV 9.3 fL (7.6-11.3); RBC Red Blood Cell Count 3.77 M/uL (4.33-5.43)
[2018-11-20 00:18] LABS: Albumin 3.5 g/dL (3.4-5.0); Bilirubin Direct 0.8 mg/dL (0-0.2); Bilirubin Total 2.2 mg/dL (0.2-1.0); Magnesium 2.3 mg/dL (1.8-2.4); Potassium 4.5 mmol/L (3.5-5.1); Protein, Total 6.9 g/dL (6.4-8.2); Troponin (Emerg Dept Use Only) 0.13 ng/mL (0.0-0.045)
[2018-11-20 00:30] LABS: Arterial Blood Carboxyhemoglob 1.1 % (0-1.5); Blood Gas Oxyhemoglobin 98.3 % (94-97)
[2018-11-20] MEDS ORDERED: FUROSEMIDE 20 MG/ 2ML VIAL ONE (02:10)
--- NOTE | 2018-11-20 03:49 | ER ---
Nurse's Notes [facility] Name: Wade Murphy Age: 73 yrs Sex: Male : 1945 Arrival Date: 11/19/2018 Time: 23:27 Bed 15 Private MD: Diagnosis: Unspecified diastolic (congestive) heart failure;Chronic obstructive pulmonary disease with (acute) exacerbation Presentation: 11/19 23:16 Presenting complaint: EMS states: Pt had a quadruple bypass 4 days ago, d/c'ed today, jb4 was complaining of SOB, was 95% on RA, given 1 of albuterol and Atrovent. Respiratory status progressively getting worse upon transfer. given 125 Solu-Medrol IV. 23:16 Transition of care: patient was not received from another setting of care. Onset of jb4 symptoms was November 19, 2018. Risk Assessment: Do you want to hurt yourself or someone else? Patient reports no desire to harm self or others. Initial Sepsis Screen: Does the patient meet any 2 criteria? RR > 20 per min. HR > 90 bpm. Yes Does the patient have a suspected source of infection? No. Patient's initial sepsis screen is negative. Care prior to arrival: Medication(s) given: Albuterol Neb x 1, Atrovent Neb x 1, Solu-Medrol 125 IV IV initiated. 20 GA, in the left forearm. 23:16 Method Of Arrival: EMS: [facility] 23:16 Acuity: MARYJANE 2 jb4 Historical: - Allergies: 23:16 No Known Allergies; jb4 - Home Meds: 23:16 aspirin 81 mg Oral chew 1 tab once daily [Active]; furosemide 20 mg Oral tab 1 tab once jb4 daily [Active]; metoprolol tartrate 25 mg Oral tab 1 tab nightly [Active]; atorvastatin 80 mg oral tab 1 tab once daily [Active]; apixaban oral 2.5 mg oral 1 tab 2 times per day [Active]; hydralazine 25 mg Oral tab 1 tab every 8 hours [Active]; pantoprazole 40 mg oral TbEC 1 tab once daily [Active]; sodium bicarbonate 650 mg Oral tab [Active]; - PMHx: 23:16 CHF; COPD; Hypertension; Myocardial infarction; TIA; Atrial Fib; Diabetes - NIDDM; jb4 - PSHx: 23:16 quadruple bypass; jb4 - Immunization history:: Adult Immunizations up to date. - Social history:: Smoking status: Patient uses tobacco products, Patient uses alcohol. - Ebola Screening: : No symptoms or risks identified at this time. Screenin:16 Abuse screen: Denies threats or abuse. Nutritional screening: No deficits noted. jb4 Tuberculosis screening: No symptoms or risk factors identified. Fall Risk Secondary diagnosis (15 points) TIA, IV access (20 points). Total Munguia Fall Scale indicates Low Risk Score (25-44 pts). Fall prevention measures have been instituted. Side Rails Up X 2 Placed close to Nursing Station Frequent Obs/Assesments occuring Family Present and informed to notify staff if they need to leave bedside As available Patient and Family Educated on Fall Prevention Program and strategies. Assessment: 23:16 General: Appears distressed, uncomfortable, Behavior is calm, cooperative. Pain: Denies jb4 pain. Neuro: Level of Consciousness is awake, alert, obeys commands, Oriented to person, place, time, situation. Cardiovascular: Patient's skin is warm and dry. Rhythm is irregular. Respiratory: Airway is patent Respiratory effort is even, labored, Respiratory pattern is symmetrical, tachypnea Breath sounds are clear in right posterior upper lobe, right posterior middle lobe and right posterior lower lobe Breath sounds are coarse in right upper lobe, left upper lobe, right middle lobe, left lower lobe, right lower lobe, left posterior upper lobe and left posterior lower lobe. GI: No deficits noted. No signs and/or symptoms were reported involving the gastrointestinal system. : No deficits noted. No signs and/or symptoms were reported regarding the genitourinary system. EENT: No deficits noted. No signs and/or symptoms were reported regarding the EENT system. Derm: Skin is intact, Skin is pink, warm \T\ dry. surgical wound with stitches to the chest and abdomen. Musculoskeletal: Circulation, motion, and sensation intact. 11/20 00:02 Reassessment: Patient appears in no apparent distress at this time. Patient and/or jb4 family updated on plan of care and expected duration. Pain level reassessed. Pt respirations are still tachypneic even and labored, reports breathing more easily after being put on BiPAP and is feeling better. 00:30 Reassessment: Patient appears in no apparent distress at this time. No changes from jb4 previously documented assessment. Patient and/or family updated on plan of care and expected duration. Pain level reassessed. 01:20 Reassessment: Patient appears in no apparent distress at this time. Patient and/or jb4 family updated on plan of care and expected duration. Pain level reassessed. PT reports inability breathe, pulled off BIPAP. After taking a few breaths without the mask, pt put mask back on reports feeling better. Respiratory: Airway is patent Respiratory effort is even, labored, Respiratory pattern is symmetrical, tachypnea Breath sounds are coarse bilaterally. 01:38 Reassessment: Pt taken off BIPAP per ER providers orders. BIPAP placed on standby. jb4 02:00 Reassessment: Patient appears in no apparent distress at this time. Patient and/or jb4 family updated on plan of care and expected duration. Pain level reassessed. PT ambulated to restroom with assistance. returned to bedroom. Reported some shortness of breath. is 96% on RA. 03:00 Reassessment: Patient appears in no apparent distress at this time. Patient and/or jb4 family updated on plan of care and expected duration. Pain level reassessed. Respiratory: Airway is patent Respiratory effort is even, unlabored, Respiratory pattern is symmetrical, tachypnea. 04:24 Reassessment: Patient appears in no apparent distress at this time. No changes from jb4 previously documented assessment. Patient and/or family updated on plan of care and expected duration. Pain level reassessed. Report given [facility]. Pt loaded onto EMS stretcher. Respiratory: Airway is patent Respiratory effort is even, unlabored, Respiratory pattern is symmetrical, tachypnea Breath sounds are clear bilaterally. Vital Signs: 11/19 23:16 BP 167 / 83; Pulse 107; Resp 25; Temp 97.6(A); Pulse Ox 99% on 100% Nebulizer Mask; jb4 Weight 74.84 kg; Height 5 ft. 6 in. (167.64 cm); Pain 0/10; 11/20 00:00 BP 158 / 78; Pulse 103; Resp 22; Pulse Ox 100% on 30% BiPAP; jb4 00:30 BP 161 / 79; Pulse 95; Resp 26; Pulse Ox 99% on 30% BiPAP; jb4 01:39 BP 149 / 84; Pulse 98; Resp 28; Pulse Ox 95% on R/A; jb4 02:00 BP 164 / 84; Pulse 103; Resp 24; Pulse Ox 96% on R/A; jb4 03:00 BP 151 / 88; Pulse 91; Resp 25; Temp 98.9(TE); Pulse Ox 97% on R/A; jb4 04:00 BP 168 / 88; Pulse 104; Resp 21; Pulse Ox 98% on R/A; jb4 11/19 23:16 Body Mass Index 26.63 (74.84 kg, 167.64 cm) jb4 ED Course: 11/19 23:16 Arm band placed on right wrist. jb4 23:16 Patient has correct armband on for positive identification. Placed in gown. Bed in low jb4 position. Call light in reach. Side rails up X2. court recording monitor on. Pulse ox on. NIBP on. 23:16 Maintain EMS IV. Dressing intact. Good blood return noted. Site clean \T\ dry. Gauge \T\ ryan 4 site: 20g, Left forearm. 23:27 Patient arrived in ED. jb4 23:30 Triage completed. jb4 23:32 Julio Fletcher MD is Attending Physician. tw4 23:40 Franky Hameed, RN is Primary Nurse. jb4 23:52 BIPAP Sent. jb4 23:52 PT-INR Sent. jb4 23:52 NT PRO-BNP Sent. jb4 23:52 Magnesium Sent. jb4 23:52 LFT's Sent. jb4 23:52 CBC with Diff Sent. jb4 23:52 Basic Metabolic Panel Sent. jb4 23:52 PT-INR Sent. jb4 23:52 Troponin (emerg Dept Use Only) Sent. jb4 11/20 00:16 X-ray completed. Portable x-ray completed in exam room. Patient tolerated procedure kw well. 01:36 XRAY Chest (1 view) In Process Unspecified. EDMS 04:00 No provider procedures requiring assistance completed. Patient transferred, IV remains jb4 in place. Administered Medications: 02:17 Drug: Lasix 20 mg Route: IVP; Site: left forearm; jb4 03:08 Follow up: Response: No adverse reaction jb4 Outcome: 03:48 ER care complete, transfer ordered by . tw4 04:00 Transferred by ground EMS to [facility], Transfer form completed. jb4 X-rays sent w/ patient. 04:00 Condition: stable 04:00 Discharge instructions given to patient, family, Instructed on the need for transfer, Demonstrated understanding of instructions. 04:33 Patient left the ED. jb4 Signatures: Dispatcher [employer] Ping Hardy James, RN RN jb4 Julio Fletcher MD MD tw4 Corrections: (The following items were deleted from the chart) 11/19 23:40 23:16 Care prior to arrival: None. jb4 jb4 11/20 00:43 00:00 BP 158 / 78; Pulse 103bpm; Resp 22bpm; Pulse Ox 100% 02 100% BiPAP; jb4 jb4 01:39 01:32 BP 149 / 84; Pulse 98bpm; Resp 28bpm; Pulse Ox 95% RA; jb4 jb4
--- NOTE | 2018-11-20 03:51 | EDPHYS ---
Physician Documentation [facility] Name: Wade Murphy Age: 73 yrs Sex: Male : 1945 Arrival Date: 11/19/2018 Time: 23:27 Bed 15 Private MD: ED Physician Julio Fletcher HPI: 11/20 03:54 This 73 yrs old Male presents to ER via EMS with complaints of Shortness Of tw4 Breath. 03:54 The patient has shortness of breath at rest. Onset: The symptoms/episode began/occurred tw4 today. Duration: The symptoms are continuous, and are steadily getting worse. The patient's shortness of breath has no apparent modifying factors. Associated signs and symptoms: The patient has no apparent associated signs or symptoms. Severity of symptoms: At their worst the symptoms were moderate in the emergency department the symptoms are unchanged. The patient has experienced a previous episode. The patient has been recently been admitted at [facility], was discharged last month, pt seen and admitted for CABG. Pt discharged today upon returning home became acutely SOB. Historical: - Allergies: 11/19 23:16 No Known Allergies; jb4 - Home Meds: 23:16 aspirin 81 mg Oral chew 1 tab once daily [Active]; furosemide 20 mg Oral tab 1 tab once jb4 daily [Active]; metoprolol tartrate 25 mg Oral tab 1 tab nightly [Active]; atorvastatin 80 mg oral tab 1 tab once daily [Active]; apixaban oral 2.5 mg oral 1 tab 2 times per day [Active]; hydralazine 25 mg Oral tab 1 tab every 8 hours [Active]; pantoprazole 40 mg oral TbEC 1 tab once daily [Active]; sodium bicarbonate 650 mg Oral tab [Active]; - PMHx: 23:16 CHF; COPD; Hypertension; Myocardial infarction; TIA; Atrial Fib; Diabetes - NIDDM; jb4 - PSHx: 23:16 quadruple bypass; jb4 - Immunization history:: Adult Immunizations up to date. - Social history:: Smoking status: Patient uses tobacco products, Patient uses alcohol. - Ebola Screening: : No symptoms or risks identified at this time. ROS: 11/20 03:54 Constitutional: Negative for fever, chills, and weight loss, Eyes: Negative for injury, tw4 pain, redness, and discharge, Cardiovascular: Negative for chest pain, palpitations, and edema, Abdomen/GI: Negative for abdominal pain, nausea, vomiting, diarrhea, and constipation, Back: Negative for injury and pain, MS/Extremity: Negative for injury and deformity, Skin: Negative for injury, rash, and discoloration, Neuro: Negative for headache, weakness, numbness, tingling, and seizure. Respiratory: Positive for dyspnea on exertion, shortness of breath, at rest. Exam: 03:54 Head/Face: Normocephalic, atraumatic. tw4 03:54 Chest/axilla: Normal chest wall appearance and motion. Nontender with no deformity. No lesions are appreciated. Cardiovascular: Regular rate and rhythm with a normal S1 and S2. No gallops, murmurs, or rubs. Normal PMI, no JVD. No pulse deficits. Abdomen/GI: Soft, non-tender, with normal bowel sounds. No distension or tympany. No guarding or rebound. No evidence of tenderness throughout. Back: No spinal tenderness. No costovertebral tenderness. Full range of motion. Male : Normal genitalia with no discharge or lesions. 03:54 Constitutional: The patient appears diaphoretic, in obvious distress, moderately distressed, uncomfortable. 03:54 Respiratory: moderate respiratory distress is noted, Respirations: labored breathing, that is moderate, Breath sounds: rhonchi, are scattered. Vital Signs: 11/19 23:16 BP 167 / 83; Pulse 107; Resp 25; Temp 97.6(A); Pulse Ox 99% on 100% Nebulizer Mask; jb4 Weight 74.84 kg; Height 5 ft. 6 in. (167.64 cm); Pain 0/10; 11/20 00:00 BP 158 / 78; Pulse 103; Resp 22; Pulse Ox 100% on 30% BiPAP; jb4 00:30 BP 161 / 79; Pulse 95; Resp 26; Pulse Ox 99% on 30% BiPAP; jb4 01:39 BP 149 / 84; Pulse 98; Resp 28; Pulse Ox 95% on R/A; jb4 02:00 BP 164 / 84; Pulse 103; Resp 24; Pulse Ox 96% on R/A; jb4 03:00 BP 151 / 88; Pulse 91; Resp 25; Temp 98.9(TE); Pulse Ox 97% on R/A; 4 04:00 BP 168 / 88; Pulse 104; Resp 21; Pulse Ox 98% on R/A; 4 11/19 23:16 Body Mass Index 26.63 (74.84 kg, 167.64 cm) 4 MDM: 11/19 23:32 Patient medically screened. tw4 11/20 03:54 Differential diagnosis: Chronic Obstructive Pulmonary Disease pneumonia, Pneumothorax tw4 pulmonary edema, Pulmonary Embolism. Antibiotic administration: Not indicated. Data reviewed: vital signs, nurses notes, EMS record, old medical records. Data interpreted: gambling monitor: rhythm is normal sinus rhythm, Pulse oximetry: Interpretation: normal. Test interpretation: by ED physician or midlevel provider: plain radiologic studies. Counseling: I had a detailed discussion with the patient and/or guardian regarding: the historical points, exam findings, and any diagnostic results supporting the discharge/admit diagnosis, lab results, radiology results. Awaiting: transfer to another facility. Special discussion: Based on the history and exam findings, there is no indication for further emergent testing or inpatient evaluation. I discussed with the patient/guardian the need to see the chocolate dipper for further evaluation of the symptoms. ED course: Pt placed on BiPAP upon arrival. Pt found to be tachypneic and diaphoretic. Pt respiratory status improved. ABG improved. CXR reveal possible trace CHF. Pt given Lasix and weaned off BiPAP after ABG results. Because of recent surgery and discharge, will readmit to [facility] for evaluation. D/W Dr Beatty who agrees and accepts transfer at [facility]. 11/19 23:46 Order name: Basic Metabolic Panel; Complete Time: 01:21 4 11/20 01:22 Interpretation: Normal except: GLUC 123; BUN 24; CRE 1.72; GFR 39; NA 134. tw11/19 23:46 Order name: CBC with Diff; Complete Time: 00:39 4 11/20 00:40 Interpretation: Normal except: WBC 6.7; RBC 3.77; HGB 10.8; HCT 33.1; MCV 87.9. 11/19 23:46 Order name: LFT's; Complete Time: 01:22 4 11/20 01:22 Interpretation: Normal except: AST 53; ALK 339; BILIT 2.2; BILID 0.8; A/G 1.0. 11/19 23:46 Order name: Magnesium; Complete Time: 01:22 11/20 01:22 Interpretation: Normal except: MG 2.3. 11/19 23:46 Order name: NT PRO-BNP; Complete Time: 01:22 11/20 01:22 Interpretation: Normal except: NT PRO-BNP [address]26[address]. [facility] 11/19 23:46 Order name: PT-INR; Complete Time: 00:40 [facility] 11/20 00:40 Interpretation: Normal except: PT 16.1. 11/19 23:40 Order name: BIPAP [facility] 11/19 23:46 Order name: Troponin (emerg Dept Use Only); Complete Time: 01:22 11/20 01:22 Interpretation: Normal except: TROPED 0.13. 11/19 23:46 Order name: XRAY Chest (1 view) [facility] 11/19 23:46 Order name: EKG; Complete Time: 23:48 [facility] 11/19 23:46 Order name: Cardiac monitoring; Complete Time: 23:51 11/20 00:03 Order name: ABG [facility] 11/20 00:35 Order name: ABG Arterial Blood Gas [facility] 11/20 00:40 Interpretation: Normal except: ABGPH 7.46; ABGPCO2 29.9; ABGPO2 330.0; ABGHCO3 20.9; tw4 ABGSO2 100.0; MXLA7YE 98.3. 11/19 23:46 Order name: EKG - Nurse/Tech; Complete Time: 23:51 11/19 23:46 Order name: IV Saline Lock; Complete Time: 23:51 11/19 23:46 Order name: Labs collected and sent; Complete Time: 23:51 11/19 23:46 Order name: O2 Per Protocol; Complete Time: 23:51 11/19 23:46 Order name: O2 Sat Monitoring; Complete Time: 23:51 EC:54 Rate is 100 beats/min. Rhythm is irregularly irregular, A fib. [place] interval is normal. tw4 QRS interval is normal. QT interval is normal. No Q waves. No ST changes noted. Clinical impression: NSR w/ Non-specific ST/T Changes and Atrial Fibrillation. Interpreted by me. Reviewed by me. Administered Medications: 02:17 Drug: Lasix 20 mg Route: IVP; Site: left forearm; jb4 03:08 Follow up: Response: No adverse reaction jb4 Disposition: 11/20/18 03:48 Transfer ordered to [facility]. Diagnosis are Unspecified diastolic (congestive) heart failure, Chronic obstructive pulmonary disease with (acute) exacerbation. - Reason for transfer: Higher level of care. - Accepting physician is Dr Beatty. - Condition is Fair. - Problem is an ongoing problem. - Symptoms have improved. Signatures: Dispatcher [employer] EDMS Franky Hameed RN RN jb4 Julio Fletchre MD MD tw4 Corrections: (The following items were deleted from the chart) 03:57 03:54 Constitutional: Negative for fever, chills, and weight loss, Eyes: Negative for tw4 injury, pain, redness, and discharge, Cardiovascular: Negative for chest pain, palpitations, and edema, Respiratory: Negative for shortness of breath, cough, wheezing, and pleuritic chest pain, Abdomen/GI: Negative for abdominal pain, nausea, vomiting, diarrhea, and constipation, Back: Negative for injury and pain, MS/Extremity: Negative for injury and deformity, Skin: Negative for injury, rash, and discoloration, tw4 04:07 03:48 11/20/2018 03:48 Transfer ordered to [facility]. Diagnosis is tw4 Unspecified diastolic (congestive) heart failure; Chronic obstructive pulmonary disease with (acute) exacerbation. Reason for transfer: Higher level of care. Accepting physician is Dr Morillo. Condition is Fair. Problem is an ongoing problem. Symptoms have improved. tw4 04:33 04:07 11/20/2018 03:48 Transfer ordered to [facility]. Diagnosis is jb4 Unspecified diastolic (congestive) heart failure; Chronic obstructive pulmonary disease with (acute) exacerbation. Reason for transfer: Higher level of care. Accepting physician is Dr Beatty. Condition is Fair. Problem is an ongoing problem. Symptoms have improved. tw4
--- NOTE | 2018-11-20 06:41 | RAD REPORT ---
EXAM DESCRIPTION: RAD - Chest Single View - 11/20/2018 12:17 am CLINICAL HISTORY: Shortness of breath, quadruple bypass 4 days earlier COMPARISON: November 08 TECHNIQUE: AP portable chest image was obtained 0008 hours . FINDINGS: Lung volumes are low. Cardiac silhouette is enlarged. No significant failure or volume ove rload pattern. Lung base atelectasis present. Lung markings are accentuated due to portable technique and shallow inspiration. Trachea is midline. No pneumothorax is present. Minimal right pleural effus ion. No acute bony abnormality seen. No acute aortic findings suspected. IMPRESSION: Cardiomegaly with lung base atelectasis and minimal right effusion. Heart, vasculature and lung markings are all prominent due to shallow inspiration. Patient can be mon itored for any early failure or volume overload.
--- NOTE | 2018-11-20 08:03 | EKG ---
Test Date: 2018-11-19 Test Time: 23:28:40 [employer] Blind Machine Operator: PATITO MEASUREMENT RESULTS: Intervals: Rate: 100 OR: QRSD: 120 QT: 318 QTc: 410 [place]: P: OR: QRS: 39 T: 263 INTERPRETIVE STATEMENTS: Atrial fibrillation Anteroseptal infarct, age undetermined Abnormal ECG Compared to ECG 11/09/2018 02:42:20 Myocardial infarct finding now present Intraventricular conduction delay no longer present ST (T wave) deviation no longer present Electronically Signed On 11-20-18 08:03:07 CDT by Jeovanny Addison
== END 2018-11-20 04:33 | disposition short-term general hospital (02) ==
LOC: ER 23:20
DX: I50.30 Unspecified diastolic (congestive) heart failure (principal); J44.1 Chronic obstructive pulmonary disease with (acute) exacerbation; I10 Essential (primary) hypertension; I25.2 Old myocardial infarction; I48.91 Unspecified atrial fibrillation; E11.9 Type 2 diabetes mellitus without complications; Z72.0 Tobacco use; Z79.82 Long term (current) use of aspirin; Z95.1 Presence of aortocoronary bypass graft
CPT/HCPCS: 93005; 85025; 80048; 36415; 83735; 85610; 80076; 84484; 83880; 71045; 82805; 94660 ×2; 96374; 99285; J1940